=== PATIENT | female | born 1945 | race Caucasian/White ===

== ENCOUNTER → 2016-06-13 | Outpatient (CLI) | payer BC ==
[~2016-06-13] MED LIST: ALBUAER19 INH; ASPI-435 PO; LOVA20TA4 PO; METF-384 PO; MULT60CA PO; NITR0.4S UT; PLMIN90 IN; PRLSR20 PO; SYMIN160 INH
--- NOTE | 2016-06-13 07:35 | DIAGNOSTIC IMAGING REPORT ---
CHEST 2 VIEWS ROUTINE CLINICAL HISTORY: Shortness of breath. Moderate COPD. COMPARISON STUDY: Chest radiograph February 17, 2016. FINDINGS: Lung volumes are normal. No consolidation is identified. No pneumothorax or pleural effusion is identified. There is no evidence of pulmonary edema. Mild cardiomegaly is unchanged. IMPRESSION: 1. No acute cardiopulmonary findings. 2. Mild cardiomegaly. Electronically signed by: Jason Coronado M.D. 06/13/2016 7:33 AM
== END | disposition home or self-care (01) ==
LOC: C.RAD 06:46
PROVIDERS: ATTEND Internal Medicine
DX: J44.9 Chronic obstructive pulmonary disease, unspecified (principal)

== ENCOUNTER → 2016-07-06 | Outpatient (CLI) | payer BC ==
[~2016-07-06] MED LIST changes: -METF-384 PO
--- NOTE | 2016-07-06 17:13 | DIAGNOSTIC IMAGING REPORT ---
ULTRASOUND RIGHT UPPER EXTREMITY VENOUS CLINICAL HISTORY: Right arm pain. COMPARISON STUDY: No priors. TECHNIQUE: Real-time, grayscale, and color Doppler sonography of the deep veins of the right upper extremity is performed. Compression and augmentation were utilized. FINDINGS: There is no sonographic evidence of deep venous thrombosis identified in the right upper extremity. The right internal jugular, axillary, and brachial veins are patent and normally compressible. Normal venous waveforms and augmentation are seen within the right subclavian vein. The cephalic and basilic veins are clear. The visualized radial and ulnar veins are patent. IMPRESSION: There is no sonographic evidence of deep venous thrombosis identified in the right upper extremity. Electronically signed by: Cesar Stephen M.D. 07/06/2016 5:11 PM Dictated Date/Time: 07/06/2016 5:11 PM
== END | disposition home or self-care (01) ==
LOC: C.ULTR 16:25
PROVIDERS: ATTEND Internal Medicine
DX: M79.601 Pain in right arm (principal)

== ENCOUNTER → 2016-07-21 | Outpatient (CLI) | payer BC | END | disposition home or self-care (01) | LOC: C.LAB1850 12:26 | PROVIDERS: ATTEND Internal Medicine Pulmonary Disease | DX: J32.9 Chronic sinusitis, unspecified (principal); J44.9 Chronic obstructive pulmonary disease, unspecified; J30.89 Other allergic rhinitis; J30.1 Allergic rhinitis due to pollen ==

== ENCOUNTER → 2016-08-12 | Outpatient (CLI) | payer BC ==
[2016-08-12 12:21] LABS: BASO % 0.2 %; BASO ABS # 0.02 K/uL (0-0.2); COMPLETE YES; EOS % 1.5 %; HEMATOCRIT 49.7 % (37-47); IG% 0.3 %; LYMPH % 21.5 %; LYMPH ABS # 2.09 K/uL (1.2-3.4); MEAN CELL VOLUME 97.1 fL (80-100); MEAN CORPUSCULAR HEMOGLOBIN 31.8 pg (25-34); MEAN CORPUSCULAR HGB CONC 32.8 g/dl (32-36); MEAN PLATELET VOLUME 11.3 fL (7.4-10.4); NEUT % 70.5 %; PLATELET COUNT 251 K/uL (130-400); RED BLOOD COUNT 5.12 M/uL (4.2-5.4); WHITE BLOOD COUNT 9.73 K/uL (4.8-10.8)
[2016-08-12 12:43] LABS: ALT/SGPT 19 U/L (12-78); AST/SGOT 12 U/L (15-37); BLOOD UREA NITROGEN 8 mg/dl (7-18); BUN/CREATININE RATIO 10.6 (10-20); CALCIUM 9.2 mg/dl (8.5-10.1); CARBON DIOXIDE 27 mmol/L (21-32); CHLORIDE 107 mmol/L (98-107); CREATININE 0.73 mg/dl (0.60-1.20); GLUCOSE 162 mg/dl (70-99); POTASSIUM 4.2 mmol/L (3.5-5.1); SODIUM 145 mmol/L (136-145)
[2016-08-12 12:53] LABS: ALB/GLOB RATIO 0.8 (0.9-2); ALKALINE PHOSPHATASE 133 U/L (45-117); CHOLESTEROL 171 mg/dl (0-200); CHOLESTEROL/HDL RATIO 3.4; HDL CHOLESTEROL 51 mg/dl; LDL CHOLESTEROL CALCULATED 92 mg/dl; TRIGLYCERIDES 142 mg/dl (0-150); VERY LOW DENSITY LIPOPROT CALC 28 mg/dl
[2016-08-12 13:28] LABS: ESTIMATED AVERAGE GLUCOSE 203 mg/dl; HA1C FLAG Normal (Normal)
== END | disposition home or self-care (01) ==
LOC: C.LABBFT 10:23
PROVIDERS: ATTEND Internal Medicine
DX: E11.42 Type 2 diabetes mellitus with diabetic polyneuropathy (principal)

== ENCOUNTER → 2016-08-26 | Outpatient (CLI) | payer BC ==
[~2016-08-26] MED LIST changes: -MULT60CA PO; -PLMIN90 IN
--- NOTE | 2016-08-26 13:42 | DIAGNOSTIC IMAGING REPORT ---
LEFT LOWER EXTREMITY VENOUS DOPPLER HISTORY: M79.89 Left leg swelling left [id number] COMPARISON STUDY: Venous Doppler 10/09/2015. FINDINGS: There is normal compressibility, flow, and augmentation within the left lower extremity deep venous system. IMPRESSION: No DVT within the left lower extremity. Electronically signed by: Rony Salgado M.D. 08/26/2016 1:41 PM Dictated Date/Time: 08/26/2016 1:39 PM
--- NOTE | 2016-08-31 07:50 | CODING QUERY MEDICAL NECESSITY ---
SUPPORTING DIAGNOSIS NEEDED Dr. Koroma, A supporting diagnosis is required for the test/procedure performed on this patient in order for us to be reimbursed by the patient's insurance. Please provide a supporting diagnosis for the following test/procedure listed below next to the test name along with your signature. *If there is no additional diagnosis for this patient that would support the following test/procedure please document that below next to the test/procedure. Test(s)/Procedure(s) that require a supporting diagnosis: * ([id number]) VENOUS DOPPLER LOWER EXT UNILA DIAGNOSIS: DATE OF SERVICE: 08/26/16 Provider Signature: Date: Thank you Abdifatah [facility] Information Management Once completed, please kindly fax back to [phone] For questions please call [phone]
== END | disposition home or self-care (01) ==
LOC: C.ULTRBC 12:41
PROVIDERS: ATTEND Internal Medicine
DX: M79.89 Other specified soft tissue disorders (principal); R60.9 Edema, unspecified

== ENCOUNTER → 2016-09-07 | Outpatient (CLI) | payer BC ==
[~2016-09-07] MED LIST changes: +METF-384 PO
--- NOTE | 2016-09-08 06:44 | SPLIT NIGHT TECHNICIAN REPORT ---
[facility] Split Night Polysomnogram - Gear Changer Report Study date: 09/07/2016 Referring Physician: DR. PEOPLES Name: TEODORO MACEDO Gear Changer: [facility] Date of : 1945 Height: 71 years, Height 5' 3" Sex: Female Weight: 232 lbs Age: 71 Neck Circum: 17 in BMI: Medications: 41.09 ALBUTEROL SULFATE, CALRITHROMYCIN 500 MG, EQ ASPISIN LOW DOSE 81 MG, FORACARE TEST N GO STRIP, LOVASTATIN 20 MG, NITROSTAT 0.4 MG, PREDNISONE 10 MG, SYMBICORT 160-4.5 MCG/ACT, VENTOLIN HFA, VIT C Patient History 71 yr-old female here for a baseline.split study. She has a history of COPD, shortness of breath upon exertion, excessive daytime sleepiness, and frequent awakenings. She is sleeping in the upright position. Her [place] scale is 5. CPAP will be introduced with AHI exceeds 15 (per doctor's H&P) The test was started on room air. ETCO2 testing is included in this study. Room 6 Parameters Monitored NPSG: E1-M2, E2-M1, Fp1-M2, Fp2-M1, F3-M2, F4-M2, F4-M1, C3-M2, C4-M2, C4-M1, O1-M2, O2-M2, O2-M1, T3-M2, T4-M1, P3-M2, P4-M1, CHIN1, CHIN2, HR, EKG, Legs, PFLOW, SNOR, FLOW, CFLOW, Tidal Volume, THOR, ABDO, SpO2, PLTH, CPRESS, ETCO2 Wave, ETCO2, pH SLEEP SUMMARY DATA DIAGNOSTIC TREATMENT Lights Out: 10:43:59 PM 1:41:29 AM Lights On: 1:25:59 AM 6:02:29 AM Total Recording Time (TRT): 162.0 min. 261.0 min. Total Sleep Time (TST): 123.5 min. 183.5 min. NREM Time: 97.5 min. 151.5 min. REM Time: 26.0 min. 32.0 min. Sleep Period Time (SPT): 150.0 min. 214.0 min. Sleep Efficiency (SE): 76 % 70 % Sleep Latency: 11.5 min. 47.0 min. Arousal Index: 56.4 25.2 PAP Treatment Levels: 4, 6, 7, 8, 10, 11, 13 * Optimal Pressure(s) SLEEP STAGING DATA DIAGNOSTIC TREATMENT Duration (min) TST % Duration (min) TST % Stage Wake: 38.5 min. -- 77.5 min. -- WASO: 27.0 min. -- 30.5 min. -- NREM: 97.5 min. 79 % 151.5 min. 83 % Stage N1: 32.5 min. 26 % 16.0 min. 9 % Stage N2: 65.0 min. 53 % 122.5 min. 67 % Stage N3: 0.0 min. 0 % 13.0 min. 7 % REM: 26.0 min. 21 % 32.0 min. 17 % POSITIONAL DATA Event Count Index Event Count Index Supine: N/A N/A N/A N/A Supine NREM: N/A N/A N/A N/A Supine REM: N/A N/A N/A N/A Non-Supine: 53 25.3 49 14.7 Non-Supine NREM: 42 25.8 47 17.4 Non-Supine REM: 11 23.1 2 1.9 AROUSAL SUMMARY DATA: Event Count Index Event Count Index Apnea Arousals: 0 0.5 2 0.7 Hypopnea Arousals: 22 10.7 18 5.9 Snore Arousals: 0 0.0 3 1.0 PLM Arousals: 88 42.8 23 7.5 Non-Specific Arousals: 5 2.4 26 8.5 Total Arousals: 116 56.4 77 25.2 MYOCLONUS (PLM) Event Count Index Event Count Index PLM: 312 151.6 200 65.4 PLM AROUSAL: 88 42.8 23 7.5 PLM W/O AROUSAL 312 151.6 177 57.9 PLM W/RESP EVENT 32 0.0 4 0.0 MYOCLONUS (PLM) Event Count Index Event Count Index LM: 0 6.3 59 19.3 LM AROUSAL: 0 0.0 3 1.0 LM W/O AROUSAL LM W/RESP EVENT LM NON SPECIFIC 204 99.1 215 70.3 HEART RATE DATA DIAGNOSTIC TREATMENT Sleep (bpm): 74 66 REM (bpm): 78 81 NREM (bpm): 87 87 Tachycardia Count: 0 0 Tachycardia Duration: 0.00 0 Bradycardia Count: 0 0 Bradycardia Duration: 0.00 0 DIAGNOSTIC PORTION TREATMENT PORTION RESPIRATORY DATA Event Count Index Event Count Index AHI: -- 25.3 -- 14.7 RDI: -- 25.7 -- 16 Obstructive Apnea: 1 0.5 2 0.7 Central Apnea: 0 0.0 0 0.0 Mixed Apnea: 0 0.0 0 0.0 Hypopnea: 51 24.8 43 14.1 RERA: 1 0.5 4 1.3 Total Apneas: 1 0.5 2 0.7 RESPIRATORY DATA REM NREM SLEEP REM NREM SLEEP Supine Position: Obstructive Apneas: N/A N/A N/A N/A N/A N/A Central Apneas: N/A N/A N/A N/A N/A N/A Mixed Apneas: N/A N/A N/A N/A N/A N/A Hypopneas: N/A N/A N/A N/A N/A N/A RERA N/A N/A N/A N/A N/A N/A Total Supine Events: N/A N/A N/A N/A N/A N/A Supine AHI: N/A N/A N/A N/A N/A N/A Supine RDI: N/A N/A N/A N/A N/A N/A REM NREM SLEEP REM NREM SLEEP Non-Supine Position: Obstructive Apneas: 1 0 1 0 2 2 Central Apneas: 0 0 0 0 0 0 Mixed Apneas: 0 0 0 0 0 0 Hypopneas: 9 42 51 1 42 43 RERA 1 0 1 1 3 4 Total Supine Events: 11 42 53 2 47 49 Supine AHI: 23.1 25.8 25.3 1.9 17.4 14.7 Supine RDI: 25.4 25.8 25.7 3.8 18.6 16.0 OXYGEN DESTAURATION DATA: Event Count Index Event Count Index REM Desaturations: 11 25.4 2 3.8 NREM Desaturations: 55 33.8 54 21.4 SNORE DATA DIAGNOSTIC TREATMENT Snore Time: 1.0 2:28:29 AM Snore TST%: 0 2 Snore Arousal Count: 0 3 Snore Arousal Index: 0.0 1.0 Desaturation Event Summary: Minimum %SpO2 Event Count Mean/Min/Max Duration(sec.) Desaturation Index % Time In Bed > 90 56 33.6 / 11.3 / 60.0 75.6 10.7 86 - 90 105 33.9 / 11.3 / 60.0 27.4 55.3 81 - 85 18 30.0 / 16.8 / 48.3 9.9 26.2 76 - 80 6 28.7 / 16.8 / 39.3 17.7 4.9 71 - 75 1 31.3 / 31.3 / 31.3 5.5 2.6 66 - 70 0 N/A 0.0 0.3 61 - 65 0 N/A 0.0 0.0 56 - 60 0 N/A 0.0 0.0 51 - 55 0 N/A 0.0 0.0 < 50 0 N/A 0.0 0.0 OXYGEN SATURATION DATA DIAGNOSTIC TREATMENT SpO2 Mean Sleep: 85 % 86 % SpO2 Mean REM: 78 % 81 % SpO2 Mean NREM: 87 % 87 % SpO2 Minimum Sleep: 69 % 74 % SpO2 Minimum REM: 69 % 74 % SpO2 Minimum NREM: 78 % 79 % Time Below 90% (TST): 108.6 157.4 Time Below 88% (TST): 82.7 126.2 Total REM NREM Awake <50% 0.0 min. 0.0 min. 0.0 min. 0.0 min. 51 - 60% 0.0 min. 0.0 min. 0.0 min. 0.0 min. 61 - 70% 1.4 min. 1.0 min. 0.0 min. 0.3 min. 71 - 80% 31.2 min. 29.9 min. 0.7 min. 0.6 min. 81 - 90% 339.3 min. 26.1 min. 224.3 min. 88.9 min. 91 - 100% 44.5 min. 0.9 min. 24.0 min. 19.5 min. Average 86 80 87 89 Minimum SpO2 69 69 78 70 Desaturation Event Index 18.6 13.4 26.3 6.7 # Desat. Events below 89% 127 13 105 9 Time(%) with Saturation below 89% 71.8 13.4 44.9 13.5 Time(min.) with Saturation below 89% 299.0 55.9 186.9 56.3 Recording Gear Changer Comments: Ms. Macedo slept only in the supine position with the head of the bed raised to a near sitting position. No cardiac arrhythmias were noted. PLMs and many arousals from leg movements were noted throughout the study. No bruxism noted. Snoring was noted and scored as a 2-3 on a scale of 1 through 5. (0=no snoring, 5=snoring loud enough to be heard through a closed door or down the [address]) At 1:40, she met specific Split-Night criteria during the diagnostic portion of this study. CPAP was initiated at +4 CMH2O and up-titrated to a level of +13 CMH2O Cflex 3. A Simplus full face mask size medium from [employer] was used during titration She awoke to use the restroom two times during the night. Ms. Macedo stated that she thinks she slept ok. The final report will be interpreted and signed by a sleep physician. The completed physician report will then be placed in the patient medical record. Therapy Event: Therapy (cm H20) 0 4 6 7 8 10 11 13 Total Time at Pressure (min.) 162.0 67.9 67.1 29.0 41.5 15.4 17.5 22.7 TST at Pressure (min.) 123.5 16.9 66.6 28.0 19.0 15.4 15.5 22.2 # Periods 1 1 1 1 1 1 1 1 Sleep Onset (min.) 11.5 47.0 0.0 0.0 0.0 0.0 0.0 0.0 REM Onset (min.) 120.0 N/A 48.6 0.0 N/A N/A N/A N/A Sleep Efficiency % 76 24 99 96 45 100 88 97 Wakefulness (%) 23.8 75.1 0.7 3.4 54.2 0.0 11.5 2.2 Wakefulness (min.) 38.5 51.0 0.5 1.0 22.5 0.0 2.0 0.5 NREM 1 (%) 20.1 6.6 0.7 10.3 6.0 3.2 21.8 5.3 NREM 1 (min.) 32.5 4.5 0.5 3.0 2.5 0.5 3.8 1.2 NREM 2 (%) 40.1 18.2 53.9 36.0 39.7 96.8 66.8 90.3 NREM 2 (min.) 65.0 12.4 36.1 10.4 16.5 14.9 11.7 20.5 NREM 3 (%) 0.0 0.0 18.6 0.0 0.0 0.0 0.0 2.2 NREM 3 (min.) 0.0 0.0 12.5 0.0 0.0 0.0 0.0 0.5 REM (%) 16.0 0.0 26.0 50.2 0.0 0.0 0.0 0.0 REM (min.) 26.0 0.0 17.4 14.6 0.0 0.0 0.0 0.0 # Arousals 116 23 10 8 8 6 15 7 Arousal Index 56.4 81.8 9.0 17.1 25.3 23.3 58.2 18.9 # Snore 42 8 21 10 31 3 7 8 Snore Index 20.4 28.5 18.9 21.4 98.0 11.7 27.2 21.6 AHI 25.3 14.2 3.6 8.6 25.3 23.3 42.7 21.6 AHI Supine N/A N/A N/A N/A N/A N/A N/A N/A AHI Non-Supine 25.3 14.2 3.6 8.6 25.3 23.3 42.7 21.6 NREM AHI 25.8 14.2 3.7 17.9 25.3 23.3 42.7 21.6 REM AHI 23.1 N/A 3.4 0.0 N/A N/A N/A N/A RDI 25.7 17.8 4.5 12.9 25.3 23.3 42.7 21.6 # Obstructive 1 0 0 0 0 0 0 2 # Central Ap 0 0 0 0 0 0 0 0 # Mixed 0 0 0 0 0 0 0 0 # Hypopneas 51 4 4 4 8 6 11 6 RERAS 1 1 1 2 0 0 0 0 Total Respiratory Events 53 5 5 6 8 6 11 8 Time Below SpO2 89.00% (min.) 98.7 13.9 62.7 24.2 14.6 9.2 7.0 12.3 Mean NREM SpO2 (%) 87 87 85 87 88 88 88 89 Mean REM SpO2 (%) 78 N/A 81 81 N/A N/A N/A N/A Mean Sleep SpO2 (%) 85 87 84 84 88 88 88 89 Min NREM SpO2 (%) 78 83 81 84 83 83 79 82 Min REM SpO2 (%) 69 N/A 74 74 N/A N/A N/A N/A Position Supine (min.) 0.0 0.0 0.0 0.0 0.0 0.0 0.0 0.0 Position Non-supine (min.) 123.5 16.9 66.6 28.0 19.0 15.4 15.5 22.2 LM Index Sleep 157.9 96.0 123.5 109.3 25.3 46.7 62.1 21.6 LM Index NREM 174.2 96.0 142.9 156.3 25.3 46.7 62.1 21.6 LM Index REM 96.9 N/A 68.8 65.9 N/A N/A N/A N/A Mean Heart Rate (bpm) 74 69 67 68 66 64 64 62 Min Heart Rate (bpm) 62 65 61 61 59 58 57 55
--- NOTE | 2016-09-08 12:41 | POLYSOMNOGRAPH REPORT ---
CLINICAL DATA: A 71-year-old female with BMI of 41.[address] Masters and Dr. Koroma for a split night sleep study. She has COPD, shortness of breath on exertion, excessive daytime sleepiness, and frequent awakenings. She does sleep in the upright position. This was a split night study. Her [place] Sleepiness Score was 5/24. SLEEP ARCHITECTURE: For the diagnostic portion of the study, total sleep period was 150 minutes. Total sleep time was 123.5 minutes divided between 97.5 minutes of non-REM sleep and 26 minutes of REM sleep. Sleep latency was 11.5 minutes. Sleep efficiency was 76%. Arousal index was 56.4. Sleep consisted of stage N1 26%, N2 53%, REM 21%. For the treatment portion of the study, total sleep period was 214 minutes. Total sleep time was 183.5 minutes divided between 151.5 minutes of non-REM sleep and 32 minutes of REM sleep. Sleep latency was delayed at 47 minutes. Sleep efficiency was 70%. Arousal index was 25.2. Sleep consisted of stage N1 9%, N2 67%, N3 7%, REM 17%. AROUSAL DATA: Prior to treatment, 116 arousals were recorded for an index of 56.4 per hour. During treatment, 77 arousals were recorded for an index of 25.2 per hour. PLM DATA: Prior to treatment, 204 limb movements during sleep were noted for an index of 99.1 per hour. During treatment, 215 limb movements during sleep were noted for an index of 70.3 per hour. EKG: Heart rates ranged from 66-87 beats per minute. No arrhythmias were noted. RESPIRATORY DATA: Prior to treatment, moderate sleep apnea was documented. The AHI was 25.3. There was 1 obstructive apneic episode and 51 hypopneic episodes recorded. The mean AHI with treatment was 14.7. There were 2 obstructive apneic episodes and 43 hypopneic episodes. OXIMETRY DATA: Nocturnal hypoxemia was seen. Oxygen manas was 69% during REM. The mean saturation with treatment was 86%. CLINICAL HAEMATOLOGIST'S COMMENTS AND TREATMENT SUMMARY: The patient slept supine with head of the bed raised to a near sitting position. Frequent leg movements with arousals were noted. Snoring was moderate, rated 3 on a scale of 1 through 5. At 1:40 a.m. she met split night criteria. CPAP was started and titrated up to 13 cm of water pressure using [employer] Simplus full facemask size medium. At her final pressure setting, the patient still had significant sleep apnea with an AHI of 21.6 with persistent nocturnal hypoxemia. IMPRESSION: Moderate sleep apnea/hypopnea with significant nocturnal hypoxemia with diagnostic AHI of 25.3 and oxygen manas of 69%. There was an attempt to titrate the patient with CPAP. However, there was not enough time to complete an entire CPAP/oxygen titration. RECOMMENDATIONS: The patient should be returned to the sleep lab for a full in lap titration study with CPAP/BiPAP and oxygen. MTDD
--- NOTE | 2016-09-15 06:31 | CODING QUERY MEDICAL NECESSITY ---
SUPPORTING DIAGNOSIS NEEDED A supporting diagnosis is required for the test/procedure performed on this patient in order for us to be reimbursed by the patient's insurance. Please provide a supporting diagnosis for the following test/procedure listed below next to the test name along with your signature. *If there is no additional diagnosis for this patient that would support the following test/procedure please document that below next to the test/procedure. Test(s)/Procedure(s) that require a supporting diagnosis: * SLEEP STUDY WITH C PAP DIAGNOSIS: * DOS: 09/07/16 Provider Signature: Date: Thank you Adriana Leslie Health Information Management Once completed, please kindly fax back to [phone] For questions please call [phone]
== END | disposition home or self-care (01) ==
LOC: C.NEUR 21:00
PROVIDERS: ATTEND Internal Medicine Pulmonary Disease
DX: J44.9 Chronic obstructive pulmonary disease, unspecified (principal); J45.909 Unspecified asthma, uncomplicated

== ENCOUNTER → 2016-10-07 | Outpatient (CLI) | payer BC ==
[2016-10-07 12:24] LABS: BLOOD UREA NITROGEN 12 mg/dl (7-18); BUN/CREATININE RATIO 15.7 (10-20); CALCIUM 9.6 mg/dl (8.5-10.1); CARBON DIOXIDE 31 mmol/L (21-32); CHLORIDE 104 mmol/L (98-107); CREATININE 0.75 mg/dl (0.60-1.20); GLUCOSE 171 mg/dl (70-99); POTASSIUM 4.3 mmol/L (3.5-5.1); SODIUM 142 mmol/L (136-145)
== END | disposition home or self-care (01) ==
LOC: C.LABBFT 07:50
PROVIDERS: ATTEND Physician Assistant Medical
DX: R60.9 Edema, unspecified (principal)

== ENCOUNTER → 2016-10-15 | Outpatient (CLI) | payer BC ==
--- NOTE | 2016-10-16 06:27 | PAP/PSG TECHNICIAN REPORT ---
[facility] Cake Knocker Polysomnogram Report Study name: None Report date: 10/16/2016 Study date: 10/15/2016 Referring Physician: Dee Diaz PA-C Name: TEODORO MACEDO Interpreting Physician: Javy Merritt M.D. Date of : 1945 Cake Knocker: Jamar Sung RPSGT. Sex: Female Age: 71 StudyType: PSG PAP Weight: 237 lbs 18.5 inches Height: 71 years, Height 5' 3" Neck Circum: BMI: 41.98 Medications: ALBUTEROL SULFATE, CLOTRIMAZOLE-BETAMETHASONE, EQ ASPIRIN LOW DOSE 81 MG, LOVASTATIN 20 MG, METFORMIN HCL 500 MG, NITROSTAT 0.4 MG, SYMBICORT 160-4.5 MCG/ACT, VENTOLIN HFA 108 (90) BASE Patient History PATIENT HAD A SLEEP STUDY DONE IN AUGUST OF 2016. SHE WAS POSITIVE FOR LISSETTE WITH AN AHI OF 25.3/HR. A SPLIT STUDY WAS PERFORMED BUT WAS UNABLE TO FIND AN OPTIMAL PRESSURE. SHE IS HERE TODAY FOR A REPEAT CPAP TITRATION. ESS = 5 RM 8 Parameters Monitored NPSG: E1-M2, E2-M1, Fp1-M2, Fp2-M1, F3-M2, F4-M2, F4-M1, C3-M2, C4-M2, C4-M1, O1-M2, O2-M2, O2-M1, T3-M2, T4-M1, P3-M2, P4-M1, CHIN1, CHIN2, HR, EKG, Legs, PFLOW, SNOR, FLOW, CFLOW, Tidal Volume, THOR, ABDO, SpO2, PLTH, CPRESS, ETCO2 Wave, ETCO2, pH Sleep Architecture Sleep Stages Time at Lights Off 10:48:21 PM STAGES Time (min.) TST (%) Time at Lights On 6:01:51 AM Wake 161.0 -- Total Recording Time (TRT) 434.00 min. N1 48.0 18 Total Sleep Period (TSP) 416.0 min. N2 144.0 53 Total Sleep Time (TST) 272.5min. N3 41.5 15 Awake Time 161.5 min. REM 39.0 14 Wake after Sleep Onset 144.0 min. Sleep Efficiency (SE) 63 % Sleep Onset Latency (ANGELITO) 17.0 min. Number of Stage 1 Shifts None Awakenings 49 Stage Changes 155 Number of REM periods 4 REM 39.0 14 REM Latency 174.5 min. NREM 233.5 86 Body Position Analysis Supine Right Left Side Prone Vertical Total Sleep Time (min.) 433.5 0.0 0.0 0.00 0.0 0.0 Total Sleep Time (%) 100% 0% 0% 0 0% N/A% Total Sleep Time REM (min.) 39.0 0.0 0.0 None 0.0 0.0 Total Sleep Time NREM (min.) 233.5 0.0 0.0 None 0.0 0.0 Intermittent Wake (min.) 161.0 0.0 0.0 None 0.0 0.0 Total Sleep Period (%) 100% None None None None None Arousals Myoclonus (PLM) * Events Count Index Events Count Index Spontaneous 65 14 Events Awake (PLMW) 112 41.7 Respiratory 86 19.4 Events Asleep w/ Arousal (PLMA) 28 6.2 PLM 28 6 Events Asleep w/o Arousal (PLMS) 145 31.9 Snoring 0 0 Total Asleep 173 38.1 Total 179 39 Total 285 39 Respiratory Analysis * CA OA MA CH H RERA Total Count 17 7 4 0 84 23 112 Index 3.7 1.5 0.9 0 18.5 5 29.5 Mean Duration 20.5 32.3 25.1 0.00 21.2 13.8 20.6 Longest Duration 33.0 71.7 30.4 0.00 30.4 20.3 71.7 Respiratory Event Summary Total Supine ~Supine Right Left Prone REM NREM Apneas Count 28 28 N/A N/A N/A N/A 2 26 Index 6.2 6 N/A N/A N/A N/A 3 7 Hypopneas (4% Desat) Count 84 84 N/A N/A N/A N/A 8 76 Index 18.5 18.5 N/A N/A N/A N/A 12.3 19.5 Apneas & All Hypopneas Count 112 112 N/A N/A N/A N/A 10 102 Index 24.7 25 N/A N/A N/A N/A 15.4 26.2 Respiratory Events ([employer]+All Hyp+RERA) Count 112 134 N/A N/A N/A N/A 10 102 Index 29.5 30 N/A N/A N/A N/A 16.9 31.6 Respiratory Related Arousal Count 86 134 N/A N/A N/A N/A 2 86 Index 19.4 19 N/A N/A N/A N/A 3 22 Snoring Analysis Supine Right Left Prone REM NREM Total Snore duration 0.4 min Snores count 12 N/A N/A N/A 5 7 12 Snore mean duration 1.8 Sec Snores index 3 N/A N/A N/A 7.7 1.8 2.6 TST with snoring (%) 0.1% Desaturation Event Summary: Minimum %SpO2 Event Count Mean/Min/Max Duration(sec.) Desaturation Index % Time In Bed > 90 109 33.5 / 11.0 / 93.6 20.4 75.4 86 - 90 21 33.5 / 13.0 / 101.0 13.9 21.3 81 - 85 1 76.1 / 76.1 / 76.1 6.4 2.2 76 - 80 0 N/A 0.0 0.8 71 - 75 0 N/A 0.0 0.1 66 - 70 0 N/A 0.0 0.1 61 - 65 0 N/A 0.0 0.0 56 - 60 0 N/A 0.0 0.0 51 - 55 0 N/A 0.0 0.0 < 50 0 N/A 0.0 0.0 Total REM NREM Awake <50% 0.0 min. 0.0 min. 0.0 min. 0.0 min. 51 - 60% 0.0 min. 0.0 min. 0.0 min. 0.0 min. 61 - 70% 0.5 min. 0.5 min. 0.0 min. 0.0 min. 71 - 80% 4.0 min. 3.7 min. 0.0 min. 0.3 min. 81 - 90% 99.9 min. 7.8 min. 61.9 min. 30.2 min. 91 - 100% 320.9 min. 27.0 min. 171.6 min. 122.3 min. Average 92 90 91 92 Minimum SpO2 64 64 81 78 Desaturation Event Index 15.8 12.3 24.4 4.5 # Desat. Events below 89% 87 6 73 8 Time(%) with Saturation below 89% 9.6 2.5 4.7 2.4 Time(min.) with Saturation below 89% 41.0 10.7 20.2 10.1 Time (mins) REM (mins) NREM (mins) % of TST SpO2 Below 90% 100 6 N94 17.5 SpO2 Below 88% 44 0 0 8 Heart Rate Analysis Min (bpm) Max (bpm) Average (bpm) Awake 60 92 77 NREM 60 90 74 REM 60 91 74 Overall 60 91 74 Supplemental O2 Values Minimum O2 level: None Value Start Time End Time Cake Knocker Comments Ms. Macedo slept in the supine position. PAC's noted. Leg movements noted. No bruxism noted. CPAP was initiated at +4 CMH2O and up-titrated to a level of +20 CMH2O. Severe Respiratory events were noted during REM sleep while at a pressure of 20. I switched to BIPAP because I could no longer increase the pressure on CPAP. I started BIPAP at 24/20. I increased BIPAP to 25/20 and shortly after I switched to BIPAP the patient needed to use the restroom. After the patient used the restroom, she had difficulty getting back to sleep, so I lowered the BIPAP to 21/17. She continued to have central and mixed apneas, so I started at rate of 12 around 4:04 am. The patient continued to have central apneas and other respiratory events. I increased the rate up to 16 and gradually increased the BIPAP to 30/23. With the BIPAP maxed out, she continued to have hypopneas during REM sleep. The patient did seem to tolerate the pressure well considering how high it was. She did mention that she had pain in her legs and could have contributed to why she couldn't fall asleep as much. A Resmed Mirage Quattro full face size medium mask was used during titration Ms. Macedo awoke to use the restroom 1 time during the night. Ms. Macedo stated I did not sleep as well as I do when I am in my own bed. The final report will be interpreted and signed by a sleep physician. The completed physician report will then be placed in the patient medical record. Therapy Event: Therapy (cm H20) 4 6 7 8 9 10 11 12 13 Total Time at Pressure (min.) 24.0 6.2 6.1 5.8 8.8 6.8 5.5 22.5 10.5 TST at Pressure (min.) 3.0 6.2 6.1 5.3 6.8 4.3 5.5 11.5 5.5 # Periods 1 1 1 1 1 1 1 1 1 Sleep Onset (min.) 17.0 0.0 0.0 0.0 0.0 0.0 0.0 0.0 0.0 REM Onset (min.) N/A N/A N/A N/A N/A N/A N/A N/A N/A Sleep Efficiency % 12 100 100 91 77 63 100 51 52 Wakefulness (%) 87.5 0.0 0.0 8.7 22.8 36.7 0.0 48.8 47.8 Wakefulness (min.) 21.0 0.0 0.0 0.5 2.0 2.5 0.0 11.0 5.0 NREM 1 (%) 12.5 64.6 57.2 1.4 48.6 31.7 9.0 18.8 7.3 NREM 1 (min.) 3.0 4.0 3.5 0.1 4.3 2.2 0.5 4.2 0.8 NREM 2 (%) 0.0 35.4 42.8 90.0 28.5 31.6 91.0 32.4 44.9 NREM 2 (min.) 0.0 2.2 2.6 5.2 2.5 2.2 5.0 7.3 4.7 NREM 3 (%) 0.0 0.0 0.0 0.0 0.0 0.0 0.0 0.0 0.0 NREM 3 (min.) 0.0 0.0 0.0 0.0 0.0 0.0 0.0 0.0 0.0 REM (%) 0.0 0.0 0.0 0.0 0.0 0.0 0.0 0.0 0.0 REM (min.) 0.0 0.0 0.0 0.0 0.0 0.0 0.0 0.0 0.0 # Arousals 2 9 11 9 11 6 6 10 8 Arousal Index 40.0 87.3 107.9 102.3 97.6 83.5 64.9 52.0 87.8 # Snore 0 0 0 0 0 1 0 0 0 Snore Index 0.0 0.0 0.0 0.0 0.0 13.9 0.0 0.0 0.0 AHI 20.0 58.2 49.1 68.2 53.3 97.4 54.1 31.2 43.9 AHI Supine 20.0 58.2 49.1 68.2 53.3 97.4 54.1 31.2 43.9 AHI Non-Supine N/A N/A N/A N/A N/A N/A N/A N/A N/A NREM AHI 20.0 58.2 49.1 68.2 53.3 97.4 54.1 31.2 43.9 REM AHI N/A N/A N/A N/A N/A N/A N/A N/A N/A RDI 40.0 67.9 68.7 68.2 62.1 97.4 54.1 31.2 54.9 # Obstructive 0 0 0 0 0 0 0 0 0 # Central Ap 0 0 0 0 0 0 0 0 0 # Mixed 0 0 0 0 0 0 0 0 0 # Hypopneas 1 6 5 6 6 7 5 6 4 RERAS 1 1 2 0 1 0 0 0 1 Total Respiratory Events 2 7 7 6 7 7 5 6 5 Time Below SpO2 89.00% (min.) 1.8 1.6 1.1 1.0 1.1 0.3 1.9 3.8 0.3 Mean NREM SpO2 (%) 88 90 90 90 90 91 90 90 91 Mean REM SpO2 (%) N/A N/A N/A N/A N/A N/A N/A N/A N/A Mean Sleep SpO2 (%) 88 90 90 90 90 91 90 90 91 Min NREM SpO2 (%) 85 86 86 85 85 84 84 85 87 Min REM SpO2 (%) N/A N/A N/A N/A N/A N/A N/A N/A N/A Position Supine (min.) 3.0 6.2 6.1 5.3 6.8 4.3 5.5 11.5 5.5 Position Non-supine (min.) 0.0 0.0 0.0 0.0 0.0 0.0 0.0 0.0 0.0 LM Index Sleep 20.0 0.0 58.9 22.7 124.3 69.6 86.6 46.8 54.9 LM Index NREM 20.0 0.0 58.9 22.7 124.3 69.6 86.6 46.8 54.9 LM Index REM N/A N/A N/A N/A N/A N/A N/A N/A N/A Mean Heart Rate (bpm) 79 79 78 78 78 76 76 76 75 Min Heart Rate (bpm) 75 75 73 72 71 71 70 71 72 Therapy (cm H20) 14 15 16 17 18 19 20 21/17 22/18 Total Time at Pressure (min.) 5.3 5.7 5.5 36.7 6.1 13.1 29.7 8.0 2.9 TST at Pressure (min.) 4.3 3.7 5.5 17.7 6.1 13.1 29.2 6.4 2.4 # Periods 1 1 1 1 1 1 1 1 1 Sleep Onset (min.) 0.0 0.0 0.0 0.0 0.0 0.0 0.0 1.1 0.0 REM Onset (min.) N/A N/A N/A N/A N/A N/A 22.9 N/A N/A Sleep Efficiency % 81 64 100 48 100 100 98 79 83 Wakefulness (%) 18.7 35.2 0.0 51.7 0.0 0.0 1.7 20.4 17.0 Wakefulness (min.) 1.0 2.0 0.0 19.0 0.0 0.0 0.5 1.6 0.5 NREM 1 (%) 0.0 12.5 5.3 10.9 0.0 0.0 1.7 36.0 31.9 NREM 1 (min.) 0.0 0.7 0.3 4.0 0.0 0.0 0.5 2.9 0.9 NREM 2 (%) 81.3 52.2 94.7 37.4 100.0 100.0 46.8 43.6 51.0 NREM 2 (min.) 4.3 3.0 5.2 13.7 6.1 13.1 13.9 3.5 1.5 NREM 3 (%) 0.0 0.0 0.0 0.0 0.0 0.0 35.4 0.0 0.0 NREM 3 (min.) 0.0 0.0 0.0 0.0 0.0 0.0 10.5 0.0 0.0 REM (%) 0.0 0.0 0.0 0.0 0.0 0.0 14.5 0.0 0.0 REM (min.) 0.0 0.0 0.0 0.0 0.0 0.0 4.3 0.0 0.0 # Arousals 8 5 6 19 9 5 2 6 3 Arousal Index 110.6 81.6 65.7 64.2 88.2 23.0 4.1 56.4 73.8 # Snore 1 1 0 1 1 0 0 0 0 Snore Index 13.8 16.3 0.0 3.4 9.8 0.0 0.0 0.0 0.0 AHI 69.1 65.3 21.9 37.2 19.6 4.6 6.2 84.5 49.2 AHI Supine 69.1 65.3 21.9 37.2 19.6 4.6 6.2 84.5 49.2 AHI Non-Supine N/A N/A N/A N/A N/A N/A N/A N/A N/A NREM AHI 69.1 65.3 21.9 37.2 19.6 4.6 0.0 84.5 49.2 REM AHI N/A N/A N/A N/A N/A N/A 41.9 N/A N/A RDI 69.1 81.6 54.7 40.6 58.8 18.4 6.2 84.5 49.2 # Obstructive 0 0 0 1 0 0 1 1 1 # Central Ap 0 0 0 2 0 0 0 6 1 # Mixed 0 0 0 1 0 0 0 2 0 # Hypopneas 5 4 2 7 2 1 2 0 0 RERAS 0 1 3 1 5 3 0 0 0 Total Respiratory Events 5 5 5 12 6 4 3 9 2 Time Below SpO2 89.00% (min.) 0.6 0.7 0.6 0.4 0.0 0.0 2.3 1.3 0.5 Mean NREM SpO2 (%) 91 91 91 91 92 91 92 91 91 Mean REM SpO2 (%) N/A N/A N/A N/A N/A N/A 86 N/A N/A Mean Sleep SpO2 (%) 91 91 91 91 92 91 91 91 91 Min NREM SpO2 (%) 87 85 86 86 89 89 84 81 83 Min REM SpO2 (%) N/A N/A N/A N/A N/A N/A 64 N/A N/A Position Supine (min.) 4.3 3.7 5.5 17.7 6.1 13.1 29.2 6.4 2.4 Position Non-supine (min.) 0.0 0.0 0.0 0.0 0.0 0.0 0.0 0.0 0.0 LM Index Sleep 55.3 0.0 32.8 60.8 88.2 137.8 107.0 0.0 0.0 LM Index NREM 55.3 0.0 32.8 60.8 88.2 137.8 120.6 0.0 0.0 LM Index REM N/A N/A N/A N/A N/A N/A 27.9 N/A N/A Mean Heart Rate (bpm) 74 74 75 75 74 76 74 70 68 Min Heart Rate (bpm) 69 68 69 67 67 65 66 61 62 Therapy (cm H20) 24/20 25/20 25/21 27/22 28/22 30/22 30/23 Total Time at Pressure (min.) 9.4 103.4 20.0 5.2 53.4 3.6 29.3 TST at Pressure (min.) 9.4 24.5 12.0 5.2 52.4 3.6 22.8 # Periods 2 1 1 1 1 1 1 Sleep Onset (min.) 0.0 0.0 0.0 0.0 0.0 0.0 0.0 REM Onset (min.) 0.0 0.0 N/A N/A 51.9 0.0 0.0 Sleep Efficiency % 100 23 60 100 98 100 77 Wakefulness (%) 0.0 76.3 40.0 0.0 1.9 0.0 22.2 Wakefulness (min.) 0.0 78.9 8.0 0.0 1.0 0.0 6.5 NREM 1 (%) 1.9 11.1 15.0 0.0 0.0 0.0 5.1 NREM 1 (min.) 0.2 11.5 3.0 0.0 0.0 0.0 1.5 NREM 2 (%) 26.4 6.3 45.0 100.0 37.2 0.0 17.0 NREM 2 (min.) 2.5 6.5 9.0 5.2 19.9 0.0 5.0 NREM 3 (%) 0.0 0.0 0.0 0.0 58.0 0.0 0.0 NREM 3 (min.) 0.0 0.0 0.0 0.0 31.0 0.0 0.0 REM (%) 71.8 6.3 0.0 0.0 2.9 100.0 55.7 REM (min.) 6.7 6.5 0.0 0.0 1.6 3.6 16.3 # Arousals 3 18 11 2 10 0 0 Arousal Index 19.2 44.1 55.0 23.3 11.4 0.0 0.0 # Snore 4 1 1 0 1 0 0 Snore Index 25.6 2.5 5.0 0.0 1.1 0.0 0.0 AHI 25.6 17.2 40.0 34.9 1.1 16.7 7.9 AHI Supine 25.6 17.2 40.0 34.9 1.1 16.7 7.9 AHI Non-Supine N/A N/A N/A N/A N/A N/A N/A NREM AHI 45.4 20.0 40.0 34.9 0.0 N/A 9.2 REM AHI 17.9 9.2 N/A N/A 38.5 16.7 7.3 RDI 32.1 19.6 45.0 34.9 2.3 16.7 7.9 # Obstructive 1 1 1 0 0 0 0 # Central Ap 0 4 4 0 0 0 0 # Mixed 0 0 1 0 0 0 0 # Hypopneas 3 2 2 3 1 1 3 RERAS 1 1 1 0 1 0 0 Total Respiratory Events 5 8 9 3 2 1 3 Time Below SpO2 89.00% (min.) 2.6 1.3 1.8 0.1 1.7 1.5 2.5 Mean NREM SpO2 (%) 92 92 92 92 92 N/A 94 Mean REM SpO2 (%) 89 92 N/A N/A 85 89 92 Mean Sleep SpO2 (%) 90 92 92 92 92 89 92 Min NREM SpO2 (%) 87 86 83 88 87 N/A 90 Min REM SpO2 (%) 73 77 N/A N/A 80 80 76 Position Supine (min.) 9.4 24.5 12.0 5.2 52.4 3.6 22.8 Position Non-supine (min.) 0.0 0.0 0.0 0.0 0.0 0.0 0.0 LM Index Sleep 6.4 7.4 10.0 11.6 0.0 0.0 0.0 LM Index NREM 0.0 10.0 10.0 11.6 0.0 N/A 0.0 LM Index REM 8.9 0.0 N/A N/A 0.0 0.0 0.0 Mean Heart Rate (bpm) 73 75 74 71 72 74 73 Min Heart Rate (bpm) 62 61 63 63 62 63 60
--- NOTE | 2016-10-20 07:39 | POLYSOMNOGRAPH REPORT ---
CLINICAL DATA: 71-year-old female with BMI of 42 referred by Dee Diaz and Dr. Koroma for a CPAP titration study. She had a split night study performed in 08/2016 which showed moderate sleep apnea with an AHI of 25.3. An attempt was made to do a CPAP titration, but no optimal pressure could be found during the split night study. She was sent back for a repeat CPAP titration study. SLEEP ARCHITECTURE: Total sleep period was 416 minutes. Total sleep time was 272.5 minutes divided between 233.5 minutes of non-REM sleep and 39 minutes of REM sleep. Sleep onset latency was 17 minutes. REM latency was 174.5 minutes. Sleep efficiency was 63%. Wake after sleep onset was elevated at 144 minutes. Sleep consisted of stage N1 18%, N2 53%, N3 15%, REM 14%. AROUSAL DATA: 179 arousals were recorded for an index of 39 per hour. 65 were spontaneous. PLM DATA: Moderate PLMD was seen. There 173 limb movements during sleep noted for an index of 38.1 per hour with arousal index of 6.2 per hour. RESPIRATORY DATA: The AHI was 24.7. There were 17 central, 7 obstructive, and 4 mixed apneic episodes. The longest duration of apnea was 32.3 seconds. There were 84 hypopneic episodes. The longest duration of hypopnea was 30.4 seconds. OXIMETRY DATA: Nocturnal hypoxemia was seen. Oxygen manas was 64% during REM. The mean saturation was 92%. Time below 88% was 44 minutes. EKG: Heart rates ranged from 60-91 beats per minute. PACs were noted. KIT ASSEMBLER'S COMMENTS AND TREATMENT SUMMARY: The patient used a ResMed Mirage Quattro full face size medium mask. She was started on CPAP and was titrated up to 20 cm water pressure. At that level, she had an RDI of 6.2 and at 19 cm of water pressure she had an AHI was of 4.6. However, because of persistent respiratory events, she was switched to BIPAP initially and then eventually titrated up to /. At the final pressure setting, she had an AHI of 7.9 and slept for 22 minutes. Because of central apneic episodes, she had a backup rate initiated at 16 breaths per minute. Apparently she did tolerate the pressure during the titration study, although it is unlikely that she will tolerate a pressure this high sustained as an outpatient. IMPRESSION: Moderate to severe complex sleep apnea improved on BiPAP with a backup rate of 16. It is unlikely that the patient will be able to tolerate this level of pressure as an outpatient. RECOMMENDATIONS: The patient may benefit from a trial auto CPAP 5-20 cm of water pressure. She will be seen in the sleep clinic to review options for treatment. JO
== END | disposition home or self-care (01) ==
LOC: C.NEUR 21:00
PROVIDERS: ATTEND Physician Assistant Medical
DX: G47.30 Sleep apnea, unspecified (principal)

== ENCOUNTER → 2016-12-19 | Outpatient (CLI) | payer BC ==
[~2016-12-19] MED LIST changes: -METF-384 PO
--- NOTE | 2016-12-19 10:41 | DIAGNOSTIC IMAGING REPORT ---
CT OF THE CHEST WITHOUT IV CONTRAST CLINICAL HISTORY: Pulmonary nodules. COMPARISON STUDY: Chest CT June 27, 2016. CT DOSE: 642.14 mGycm TECHNIQUE: Axial images of the chest were obtained without IV contrast. Images were reviewed in the axial, sagittal, and coronal planes. IV contrast was not administered for this examination. FINDINGS: No enlarged axillary, mediastinal or hilar lymph nodes are present. Size of the heart is normal. This extensive coronary artery calcification. Central airways are patent. There is no consolidation to suggest pneumonia. A few calcified pulmonary nodules are noted. There is mild emphysema. A 9 mm right lower lobe subpleural nodule shown image 212 of 276 is unchanged since exam of June 27, 2016. A few additional smaller perifissural nodules within the right lung are also unchanged. An 8 mm groundglass nodule within the right upper lobe shown on image 147 is unchanged. There are no new nodules. Bony thorax and upper abdomen are unremarkable with exception of fatty infiltration. Several thyroid nodules are noted. IMPRESSION: No change in several pulmonary nodules since exam of June 27, 2016. These are likely benign but a follow-up chest CT in one year to ensure stability is recommended. Electronically signed by: Jason Coronado M.D. 12/19/2016 10:40 AM Dictated Date/Time: 12/19/2016 10:28 AM
== END | disposition home or self-care (01) ==
LOC: C.CTS 10:00
PROVIDERS: ATTEND Physician Assistant Medical
DX: R91.8 Other nonspecific abnormal finding of lung field (principal)

== ENCOUNTER → 2017-02-24 | Outpatient (CLI) | payer BC ==
[2017-02-24 12:28] LABS: BASO % 0.4 %; BASO ABS # 0.03 K/uL (0-0.2); COMPLETE YES; HEMATOCRIT 44.4 % (37-47); IG% 0.4 %; LYMPH % 25.9 %; LYMPH ABS # 1.93 K/uL (1.2-3.4); MEAN CELL VOLUME 99.8 fL (80-100); MEAN CORPUSCULAR HEMOGLOBIN 31.7 pg (25-34); MEAN CORPUSCULAR HGB CONC 31.8 g/dl (32-36); MONO % 7.4 %; NEUT % 60.9 %; PLATELET COUNT 283 K/uL (130-400); RED BLOOD COUNT 4.45 M/uL (4.2-5.4); WHITE BLOOD COUNT 7.46 K/uL (4.8-10.8)
[2017-02-24 12:58] LABS: ESTIMATED AVERAGE GLUCOSE 151 mg/dl; HA1C FLAG Normal (Normal)
[2017-02-24 13:12] LABS: RATIO 27.9 mcg/mg (0-30.0)
[2017-02-24 13:23] LABS: BLOOD UREA NITROGEN 16 mg/dl (7-18); BUN/CREATININE RATIO 19.4 (10-20); CALCIUM 9.1 mg/dl (8.5-10.1); CARBON DIOXIDE 28 mmol/L (21-32); CHLORIDE 107 mmol/L (98-107); CHOLESTEROL 166 mg/dl (0-200); CREATININE 0.81 mg/dl (0.60-1.20); GLUCOSE 141 mg/dl (70-99); SODIUM 142 mmol/L (136-145); TRIGLYCERIDES 144 mg/dl (0-150); VERY LOW DENSITY LIPOPROT CALC 29 mg/dl
[2017-02-24 13:33] LABS: ALB/GLOB RATIO 0.9 (0.9-2); ALKALINE PHOSPHATASE 109 U/L (45-117); ALT/SGPT 19 U/L (12-78); AST/SGOT 17 U/L (15-37); CHOLESTEROL/HDL RATIO 3.3; HDL CHOLESTEROL 51 mg/dl; LDL CHOLESTEROL CALCULATED 86 mg/dl
== END | disposition home or self-care (01) ==
LOC: C.LABBFT 09:34
PROVIDERS: ATTEND Internal Medicine
DX: E11.42 Type 2 diabetes mellitus with diabetic polyneuropathy (principal)

== ENCOUNTER → 2017-06-29 | Outpatient (CLI) | payer BC ==
[~2017-06-29] MED LIST changes: +METF-384 PO
== END | disposition home or self-care (01) ==
LOC: C.MAMM 10:19
PROVIDERS: ATTEND Physician Assistant Medical
DX: Z13.820 Encounter for screening for osteoporosis (principal); Z78.0 Asymptomatic menopausal state

== ENCOUNTER → 2017-07-06 | Outpatient (CLI) | payer BC | END | disposition home or self-care (01) | LOC: C.LABBFT 09:39 | PROVIDERS: ATTEND Physician Assistant Medical | DX: E55.9 Vitamin D deficiency, unspecified (principal) ==

== ENCOUNTER 2017-07-16 12:22 | Emergency (ER) | payer BC ==
[~2017-07-16] VITALS: Ht 160 cm; Wt 109.0 kg
[2017-07-16 12:46] VITALS: TEMP 36.4; Ht 160 cm; Wt 109.0 kg
[2017-07-16 13:10] VITALS: O2SAT 95
[2017-07-16] MEDS ORDERED: METHYLPREDNISOLONE 125 MG VIAL IV STA (13:26)
[2017-07-16] MEDS ORDERED: IPRATROPIUM BROMIDE NEB SOLN 0.02% 2.5 ML VIAL INH ONE (13:30)
[2017-07-16] MEDS ORDERED: LEVALBUTEROL 1.25MG/0.5ML NEB INH ONE (13:30)
[2017-07-16 13:39] VITALS: PULSE 86; O2SAT 96
--- NOTE | 2017-07-16 13:48 | DIAGNOSTIC IMAGING REPORT ---
CHEST ONE VIEW PORTABLE CLINICAL HISTORY: 72 years-old Female presenting with CHEST PAIN. TECHNIQUE: Portable upright AP view of the chest was obtained. COMPARISON: 06/13/2016. FINDINGS: Atherosclerosis of aortic arch. Cardiac silhouette enlarged. Mild bronchial wall thickening. Pulmonary vascular prominence. Lungs and pleural spaces clear. Degenerative changes of the thoracic spine. Upper abdomen normal. IMPRESSION: 1. Cardiomegaly with volume overload. No lizbeth pulmonary edema. Bronchial wall thickening may relate to congestive change. Electronically signed by: Jann Ogden M.D. 07/16/2017 1:47 PM Dictated Date/Time: 07/16/2017 1:46 PM
[2017-07-16 14:22] LABS: BASO % 0.2 %; BASO ABS # 0.02 K/uL (0-0.2); HEMATOCRIT 43.5 % (37-47); IG# 0.09 K/uL (0.00-0.02); LYMPH % 15.1 %; LYMPH ABS # 1.22 K/uL (1.2-3.4); MEAN CELL VOLUME 96.9 fL (80-100); MEAN CORPUSCULAR HEMOGLOBIN 31.2 pg (25-34); MEAN CORPUSCULAR HGB CONC 32.2 g/dl (32-36); MEAN PLATELET VOLUME 10.7 fL (7.4-10.4); MONO % 3.6 %; MONO ABS # 0.29 K/uL (0.11-0.59); NEUT ABS # 6.47 K/uL (1.4-6.5); PLATELET COUNT 247 K/uL (130-400); RED CELL DISTRIBUTION WIDTH CV 15.4 % (11.5-14.5); RED CELL DISTRIBUTION WIDTH SD 54.3 fL (36.4-46.3); WHITE BLOOD COUNT 8.09 K/uL (4.8-10.8)
[2017-07-16] MEDS ORDERED: TIOT1AER2 INH (14:24)
[2017-07-16 14:37] LABS: ALBUMIN 3.2 gm/dl (3.4-5.0); CALCIUM 8.6 mg/dl (8.5-10.1); CREATININE 0.71 mg/dl (0.60-1.20); POTASSIUM 3.3 mmol/L (3.5-5.1)
[2017-07-16 14:40] LABS: TOTAL PROTEIN 7.2 gm/dl (6.4-8.2)
--- NOTE | 2017-07-16 15:28 | EMERGENCY ROOM VISIT NOTE ---
History Report prepared by Harsh: Claudia Stratton Under the Supervision of: Dr. Hari Carter M.D. First contact with patient: 13:00 Chief Complaint: RESPIRATORY PROBLEMS Stated Complaint: CAN'T BREATHE Nursing Triage Summary: Difficulty breathing and productive cough over the past few days. Pt saw PCP Monday and was told she had Bronchitis and prescribed 2 antibiotics and Prednisone. PT stated "My breathing is a little better from when I first got here, I think my meds are kicking in." Patient stated "I am supposed to wear 2L NC of oxygen at all times, but only use it as needed and last night I needed it." History of Present Illness The patient is a 72 year old female who presents to the Emergency Room with complaints of persistent shortness of breath since this morning. She has been sick for a week with a productive cough with yellow sputum. She denies any new chills or fevers in the last three days. She regularly uses inhalers at home. She has recently used her rescue inhaler three times a day. She denies any pain or swelling with her legs. She denies any nausea or vomiting. She has a history of asthma, COPD, DM, and CAD. She has been on Levaquin, Tamiflu, and Prednisone. Per nursing staff, the patient's oxygen saturation was 87% on RA. Source of History: patient Onset: this morning Position: other (global ) Quality: other (shortness of breath) Timing: other (persistent) Associated Symptoms: + cough (productive cough with yellow sputum), No fevers, No chills, No nausea, No vomiting Note: She denies any pain or swelling with her legs. Review of Systems See HPI for pertinent positives & negatives. A total of 10 systems reviewed and were otherwise negative. Past Medical & Surgical Medical Problems: (1) Acu Myocard Infarction,Unspec Site, Episode Unspec (2) Asthma, Unspecified, W (Acute) Exacerbation (3) Coronary Atherosclerosis Of [place] Coronary Vessel (4) Hypertension Nos Old medical records were reviewed. Nurse's notes were reviewed and I agree with. Family History No significant family history Social History Smoking Status: Current Every Day Smoker Alcohol Use: none Drug Use: none Marital Status: single Housing Status: lives alone Occupation Status: retired Current/Historical Medications Scheduled Albuterol Inhaler (Ventolin Inhaler), 2 PUFFS INH QID Aspirin (Aspirin 81), 81 MG PO HS Budesonide/Formoterol Fumarate (Symbicort 160/4.5 Inhaler ), 2 PUFFS INH BID Lovastatin (Mevacor), 20 MG PO HS Metformin Hcl (Glucophage), 2,000 MG PO BID Nitroglycerin (Nitrostat), 0.4 MG UT PRN Tiotropium [place] (Spiriva Respimat), 2 PUFF INH 1630 Scheduled PRN Omeprazole (Prilosec), 20 MG PO DAILY PRN for PRN Allergies Coded Allergies: Amoxicillin (Verified Allergy, Unknown, RASH ITCHY, 07/16/17) [place] (Verified Allergy, Unknown, RASH, 07/16/17) Physical Exam Vital Signs Date Time Temp Pulse Resp B/P (MAP) Pulse Ox O2 Delivery O2 Flow Rate FiO2 07/16/17 15:51 103 22 163/85 91 07/16/17 15:17 105 20 163/85 93 Nasal Cannula 2.0 07/16/17 14:31 105 20 165/69 93 Oxymask 2.0 07/16/17 13:39 86 20 96 Mask 2.0 07/16/17 13:10 95 Oxymask 2.0 07/16/17 13:09 95 Oxymask 2.0 07/16/17 13:09 83 07/16/17 13:08 89 Room Air 07/16/17 12:46 36.4 91 22 164/92 90 Room Air Physical Exam General: Chronically-ill appearing older female in no acute distress. Occasional cough. No respiratory distress. HEENT: Normal cephalic atraumatic. Pupils are equal round and reactive to light. Extraocular movements are intact. Oropharynx is pink with moist mucous membranes. No swelling of the mouth lips or tongue. Neck: Supple with a midline trachea. No meningeal signs or stiffness, no JVD or bruits. No Stridor. Chest: Wheezes bilaterally, though good air movement. No rhonchi. No increased work of breathing. Heart: regular rate and rhythm. Abdomen: Soft nontender, nondistended without rebound guarding or rigidity. Extremities: No cyanosis clubbing or edema. No calf tenderness or assymetry Spine/Back. Non tender to palpation. No CVA tenderness Skin: Good turgor without rashes. Neurologic exam: Cranial nerves two through 12 are intact. Motor and sensation are intact and symmetrical throughout. Medical Decision & Procedures ER Provider Diagnostic Interpretation: Radiology results as stated below per my review and radiologist interpretation: CHEST ONE VIEW PORTABLE CLINICAL HISTORY: 72 years-old Female presenting with CHEST PAIN. TECHNIQUE: Portable upright AP view of the chest was obtained. COMPARISON: 06/13/2016. FINDINGS: Atherosclerosis of aortic arch. Cardiac silhouette enlarged. Mild bronchial wall thickening. Pulmonary vascular prominence. Lungs and pleural spaces clear. Degenerative changes of the thoracic spine. Upper abdomen normal. IMPRESSION: 1. Cardiomegaly with volume overload. No lizbeth pulmonary edema. Bronchial wall thickening may relate to congestive change. Electronically signed by: Jann Ogden M.D. 07/16/2017 1:47 PM Dictated Date/Time: 07/16/2017 1:46 PM Laboratory Results 07/16/17 14:00 Red Blood Count 4.49, Mean Corpuscular Volume 96.9, Mean Corpuscular Hemoglobin 31.2, Mean Corpuscular Hemoglobin Concent 32.2, Mean Platelet Volume 10.7, Neutrophils (%) (Auto) 80.0, Lymphocytes (%) (Auto) 15.1, Monocytes (%) (Auto) 3.6, Eosinophils (%) (Auto) 0.0, Basophils (%) (Auto) 0.2, Neutrophils # (Auto) 6.47, Lymphocytes # (Auto) 1.22, Monocytes # (Auto) 0.29, Eosinophils # (Auto) 0.00, Basophils # (Auto) 0.02 07/16/17 14:00 Test 07/16/17 14:00 07/16/17 14:09 White Blood Count 8.09 K/uL (4.8-10.8) Red Blood Count 4.49 M/uL (4.2-5.4) Hemoglobin 14.0 g/dL (12.0-16.0) Hematocrit 43.5 % (37-47) Mean Corpuscular Volume 96.9 fL (80-100) Mean Corpuscular Hemoglobin 31.2 pg (25-34) Mean Corpuscular Hemoglobin Concent 32.2 g/dl (32-36) Platelet Count 247 K/uL (130-400) Mean Platelet Volume 10.7 fL (7.4-10.4) Neutrophils (%) (Auto) 80.0 % Lymphocytes (%) (Auto) 15.1 % Monocytes (%) (Auto) 3.6 % Eosinophils (%) (Auto) 0.0 % Basophils (%) (Auto) 0.2 % Neutrophils # (Auto) 6.47 K/uL (1.4-6.5) Lymphocytes # (Auto) 1.22 K/uL (1.2-3.4) Monocytes # (Auto) 0.29 K/uL (0.11-0.59) Eosinophils # (Auto) 0.00 K/uL (0-0.5) Basophils # (Auto) 0.02 K/uL (0-0.2) RDW Standard Deviation 54.3 fL (36.4-46.3) RDW Coefficient of Variation 15.4 % (11.5-14.5) Immature Granulocyte % (Auto) 1.1 % Immature Granulocyte # (Auto) 0.09 K/uL (0.00-0.02) Anion Gap 9.0 mmol/L (3-11) Est Creatinine Clear Calc Drug Dose 82.3 ml/min Estimated GFR () 97.3 Estimated GFR (Non- 83.9 BUN/Creatinine Ratio 20.3 (10-20) Calcium Level 8.6 mg/dl (8.5-10.1) Total Bilirubin 0.3 mg/dl (0.2-1) Direct Bilirubin 0.1 mg/dl (0-0.2) Aspartate Amino Transf (AST/SGOT) 24 U/L (15-37) Alanine Aminotransferase (ALT/SGPT) 34 U/L (12-78) Alkaline Phosphatase 107 U/L (45-117) Total Protein 7.2 gm/dl (6.4-8.2) Albumin 3.2 gm/dl (3.4-5.0) Lipase 64 U/L (73-393) Bedside Troponin I < 0.030 ng/ml (0-0.045) Laboratory studies as stated above per my review. Medications Administered Medications (Trade) Dose Ordered Sig/Kiersten Route Start Time Stop Time Status Last Admin Dose Admin Levalbuterol (Xopenex 1.25MG/ 0.5ML Neb) 5 mg ONE ONCE INH 07/16/17 13:30 07/16/17 13:31 DC 07/16/17 13:38 5 MG Ipratropium [place] (Atrovent 0.02% 0.5MG/2.5ML Neb) 2 mg ONE ONCE INH 07/16/17 13:30 07/16/17 13:31 DC 07/16/17 13:38 2 MG Methylprednisolone Sodium Succinate (Solu-Medrol IV) 125 mg NOW STAT IV 07/16/17 13:26 07/16/17 13:29 DC 07/16/17 14:09 125 MG ECG Indication: SOB/dyspnea Rate (beats per minute): 83 Rhythm: normal sinus Findings: no acute ischemic change, no ectopy Change: no significant change (When compared to 09/10/2014) Change: Patient's electrocardiogram was interpreted by me. ED Course 1319: Past medical records reviewed. The patient was evaluated in room A3, and a complete history and physical examination were performed. 1326: Ordered Solu-Medrol 125 mg IV 1330: Ordered Ipratropium, [place] 2 mg INH and Levalbuterol 5 mg INH 1525: I reassessed the patient at this time. She is feeling better and resting comfortably. I discussed the results and treatment plan with the patient. I answered all pertaining questions that she had. I recommend she be further evaluated and she declined. She expressed understanding and verbalized agreement. The patient will be discharged home. Medical Decision Differentials include, but are not limited to PNA, influenza, sepsis, COPD exacerbation, and cardiac disease. This patient comes in as described above. She was placed in room A3. She is here for treatment and evaluation of shortness of breath. She has a history of COPD/asthma and is currently being treated with steroids and antibiotics and Tamiflu. She got more short of breath today after coughing she says she feels better. She does wear home oxygen at home. IV access was established and she was given 1 hour Xopenex/Atrovent continuous neb. She was also given Solu- Medrol 125 mg IV. She is feeling a lot better. Her lungs still have wheezes but she appears no distress. Chest x-ray does not show any infiltrate pneumonia or pneumothorax. She has cardiomegaly but no overt CHF. Her EKG and her symptoms does not suggest acute coronary syndrome or arrhythmia. She has no significant electrolyte or metabolic abnormalities. On reassessment, she appears to be a much better. He does have some mild hypoxemia with an O2 sat in the high 80s however is may be more chronic and she does were oxygen home. I discussed this with her. I recommended that we keep her for further treatment and evaluation but she adamantly declines and wants to go home at this point and I don't think that's unreasonable but I encouraged her to follow- up tomorrow with her primary doctor return ER if symptoms worsen. She was happy with the plan and was discharged to home. Medication Reconcilliation Current Medication List: was personally reviewed by me Blood Pressure Screening Patient's blood pressure: Elevated blood pressure Blood pressure disposition: Elevated BP felt to be situational Impression Primary Impression: COPD exacerbation Additional Impressions: Bronchitis SOB (shortness of breath) Scribe Attestation The scribe's documentation has been prepared under my direction and personally reviewed by me in its entirety. I confirm that the note above accurately reflects all work, treatment, procedures, and medical decision making performed by me. Departure Information Dispostion Home / Self-Care Referrals Kevin Koroma M.D. (PCP) Forms HOME CARE DOCUMENTATION FORM, IMPORTANT VISIT INFORMATION, WORK / SCHOOL INSTRUCTIONS Patient Instructions My [facility] [employer] Additional Instructions Rest. Drink plenty of fluids. Continue to use your antibiotics and steroids and inhalers Return to ER if your symptoms get worse, shortness of breath, any new problems or concerns Follow-up with your doctor in 1-2 days for recheck. Problem Qualifiers
[2017-07-16 15:51] VITALS: BP 163/85; PULSE 103; O2SAT 91
== END 2017-07-16 15:49 | disposition home or self-care (01) ==
LOC: C.EDB 12:23 → C.EDA 15:49
DX: J44.1 Chronic obstructive pulmonary disease with (acute) exacerbation (principal); J40 Bronchitis, not specified as acute or chronic; E11.9 Type 2 diabetes mellitus without complications; I25.10 Atherosclerotic heart disease of native coronary artery without angina pectoris; I10 Essential (primary) hypertension; F17.200 Nicotine dependence, unspecified, uncomplicated; I25.2 Old myocardial infarction; Z79.82 Long term (current) use of aspirin; Z79.84 Long term (current) use of oral hypoglycemic drugs; Z79.899 Other long term (current) drug therapy

== ENCOUNTER → 2017-08-31 | Outpatient (CLI) | payer BC ==
[~2017-08-31] MED LIST changes: +TIOT1AER2 INH
[2017-08-31 12:17] LABS: BASO % 0.3 %; BASO ABS # 0.02 K/uL (0-0.2); EOS % 0.9 %; EOS ABS # 0.07 K/uL (0-0.5); HEMATOCRIT 47.2 % (37-47); HEMOGLOBIN 15.7 g/dL (12.0-16.0); IG# 0.04 K/uL (0.00-0.02); LYMPH % 31.6 %; LYMPH ABS # 2.44 K/uL (1.2-3.4); MEAN CELL VOLUME 95.2 fL (80-100); MEAN CORPUSCULAR HEMOGLOBIN 31.7 pg (25-34); MEAN CORPUSCULAR HGB CONC 33.3 g/dl (32-36); MEAN PLATELET VOLUME 10.4 fL (7.4-10.4); MONO % 6.3 %; MONO ABS # 0.49 K/uL (0.11-0.59); NEUT % 60.4 %; NEUT ABS # 4.67 K/uL (1.4-6.5); PLATELET COUNT 267 K/uL (130-400); RED CELL DISTRIBUTION WIDTH CV 15.3 % (11.5-14.5); WHITE BLOOD COUNT 7.73 K/uL (4.8-10.8)
[2017-08-31 12:34] LABS: ALBUMIN 3.4 gm/dl (3.4-5.0); ALT/SGPT 18 U/L (12-78); BLOOD UREA NITROGEN 8 mg/dl (7-18); CALCIUM 8.8 mg/dl (8.5-10.1); CARBON DIOXIDE 29 mmol/L (21-32); CHOLESTEROL 194 mg/dl (0-200); CREATININE 0.81 mg/dl (0.60-1.20); GLUCOSE 114 mg/dl (70-99); POTASSIUM 3.2 mmol/L (3.5-5.1); SODIUM 142 mmol/L (136-145)
[2017-08-31 12:44] LABS: ALKALINE PHOSPHATASE 115 U/L (45-117); AST/SGOT 13 U/L (15-37); LDL CHOLESTEROL CALCULATED 111 mg/dl; TOTAL PROTEIN 7.4 gm/dl (6.4-8.2)
[2017-08-31 13:00] LABS: HEMOGLOBIN A1C 6.6 % (4.5-5.6)
== END | disposition home or self-care (01) ==
LOC: C.LABBFT 08:46
PROVIDERS: ATTEND Internal Medicine
DX: J44.9 Chronic obstructive pulmonary disease, unspecified (principal); E11.42 Type 2 diabetes mellitus with diabetic polyneuropathy; E55.9 Vitamin D deficiency, unspecified

== ENCOUNTER → 2017-10-03 | Outpatient (CLI) | payer BC | END | disposition home or self-care (01) | LOC: C.LAB 16:14 | PROVIDERS: ATTEND Physician Assistant Medical | DX: R19.7 Diarrhea, unspecified (principal) ==

== ENCOUNTER → 2017-10-27 | Outpatient (CLI) | payer BC ==
[2017-10-27 13:06] LABS: BLOOD UREA NITROGEN 8 mg/dl (7-18); CALCIUM 9.3 mg/dl (8.5-10.1); CARBON DIOXIDE 29 mmol/L (21-32); CREATININE 0.74 mg/dl (0.60-1.20); GLUCOSE 122 mg/dl (70-99); SODIUM 141 mmol/L (136-145)
== END | disposition home or self-care (01) ==
LOC: C.LABBFT 08:37
PROVIDERS: ATTEND Physician Assistant Medical
DX: R61 Generalized hyperhidrosis (principal); I10 Essential (primary) hypertension

== ENCOUNTER 2024-06-05 02:29 | Inpatient (IN) ==
[2024-06-05] MEDS ORDERED: STAT IV Infusion **Titration per Protocol STA (02:34)
[2024-06-05] MEDS: NOREPINEPHRINE/D5W 4 MG/250 ML PLCT IV SCH (02:37)
[2024-06-05] MEDS: SODIUM BICARB 8.4% INJ 50 MEQ/50 ML SYR IV STA (02:39)
[2024-06-05] MEDS: CALCIUM CHLORIDE 10% 1,000 MG in DEXTROSE 5% 50 ML IV STA ×2 (02:40→03:26)
[2024-06-05] MEDS: OPTIRAY 320 125ml IV ONE (02:51)
[2024-06-05 02:52] LABS: iSTAT Creatinine 1.1 mg/dl (0.6-1.3); iSTAT Hemoglobin 12.6 g/dl (12.0-16.0); iSTAT Potassium 4.4 mmol/L (3.3-5.0)
[2024-06-05] MEDS: NOREPINEPHRINE/D5W 4 MG/250 ML IV ONE (02:52)
[2024-06-05 02:53] LABS: iSTAT Arterial Blood Gas HCO3 19 meg/L (19-24); iSTAT Arterial Blood Gas pCO2 98 mmHg (35-46); iSTAT Arterial Blood Gas pO2 92 mmHg (80-95); iSTAT Carbon Dioxide 22 mmol/L (24-31); iSTAT Hematocrit 37 % (37-47); iSTAT Hemoglobin 12.6 g/dl (12.0-16.0); iSTAT Potassium 4.8 mmol/L (3.3-5.0); iSTAT Sodium 137 mmol/L (135-144)
[2024-06-05 03:16] LABS: Albumin Globulin Ratio 1.2 (0.9-2); Albumin Level 2.9 gm/dl (3.4-5.0); BUN Creatinine Ratio 18.6 (10-20); Bilirubin,Total 0.4 mg/dl (0.2-1.0); Calcium 7.6 mg/dl (8.6-10.3); Creatinine Clr Calc Pharmacy 41.1 ml/min; Globulin 2.5 gm/dl (2.5-4.0); Magnesium 2.3 mg/dl (1.7-2.4); Potassium 4.7 mmol/L (3.5-5.1); Total Protein 5.4 gm/dl (6.0-8.3)
[2024-06-05] MEDS ORDERED: VANCOMYCIN CONSULT ACTIVE PRN ×2 (03:17→06:21)
[2024-06-05 03:22] LABS: Basophils # (auto) 0.03 K/uL (0.00-0.20); Basophils % (auto) 0.3 %; Echinocytes 1+; Eosinophils # (auto) 0.01 K/uL (0.00-0.50); Eosinophils % (auto) 0.1 %; Hematocrit (blood only) 37.7 % (37.0-47.0); Hemoglobin 11.1 g/dl (12.0-16.0); Immature Granulocytes # (auto) 0.33 K/uL (0.01-0.20); Immature Granulocytes % (auto) 3.3 %; Lymphocytes # (auto) 2.26 K/uL (1.20-3.40); Lymphocytes % (auto) 22.8 %; Mean Corpuscular Hemoglobin 29.7 pg (25.0-34.0); Mean Corpuscular Hgb Conc 29.4 g/dL (32.0-36.0); Mean Corpuscular Volume 100.8 fL (80.0-100.0); Mean Platelet Volume 11.9 fL (9.4-12.4); Monocytes # (auto) 0.49 K/uL (0.11-0.59); Monocytes % (auto) 4.9 %; Neutrophils # (auto) 6.79 K/uL (1.40-6.50); Neutrophils % (auto) 68.6 %; Nucleated RBC # (auto) 0.03 K/uL (0.00-0.12); Nucleated RBC % (auto) 0.3 %; Platelet Count 97 K/uL (130-400); Platelet Estimate Decreased (Normal); RDW Coefficient of Variation 16.3 % (11.5-14.5); RDW Standard Deviation 60.2 fL (36.4-46.3); Red Blood Count 3.74 M/uL (4.20-5.40); White Blood Count 9.91 K/ul (4.8-10.8)
[2024-06-05 03:23] LABS: INR 1.4 (0.9-1.1)
[2024-06-05] MEDS: SODIUM CHLORIDE 0.9% 1,000 ML IV SCH (03:30)
[2024-06-05 03:31] LABS: Thyroid Stimulating Hormone 6.326 uIu/ml (0.300-4.500)
[2024-06-05] MEDS: CEFEPIME 2000MG 2,000 MG/20 ML SYR IV STA (03:32)
--- NOTE | 2024-06-05 03:32 | XRay Report ---
EXAM: XR chest 1V portable CLINICAL HISTORY: INTUBATION REVAK DIDN'T WANT ANOTHER IMAGE, XRAY USED FOR TUBE CHECK TECHNIQUE: An X-ray image of the chest is obtained in AP projection. COMPARISON: 04/25/2024 was reviewed. FINDINGS: ET tube is seen at a distance of about 6.4 cm from the isaias. (slightly high in position, about midway within the tracheal column) IMPRESSION: 1. ET tube is seen at a distance of about 6.4 cm from the isaias. (slightly high, about midway within the tracheal column) 2. Suggested improvement regarding the degree of previously visualized left pleural effusion. Electronically signed by Gerardo Amanda 06-05-2024 03:32 AM
[2024-06-05] MEDS: PROPOFOL IV EMULSION 10 MG/ML 100 ML VIAL IV ONE (03:34)
[2024-06-05] MEDS: VANCOMYCIN HCL 1,500 MG in SODIUM CHLORIDE 0.9% 500 ML IV ONE (03:35)
[2024-06-05 03:36] LABS: Troponin I High Sensitivity 108.3 pg/ml (0-14)
--- NOTE | 2024-06-05 03:48 | CT Scan Report ---
EXAM: CT head/brain wo con CLINICAL HISTORY: POST CARDIAC ARREST ASSESSMENT. TECHNIQUE: An axial non-contrast CT scan of the brain was performed from the skull base to the high parietal region. One of the following dose reduction techniques was utilized for this exam: Automated exposure control, adjustment of the mA and/or kV according to patient size, and use of iterative reconstruction. CTDI: 36.55 mGy, DLP: 2993.41 mGy*cm COMPARISON: None. FINDINGS: No definite calvarium fractures. A hemorrhage with a thickness of 1.4 cm in the galeal tissue in the left frontal region. There are tiny ill-defined hypodense areas noted in the subcortical white matter and the periventricular region bilaterally, suggestive of moderate microvascular ischemic changes. No established territorial infarction was identified. No evidence of intracerebral hemorrhage. No extra axial hematoma. No other focal parenchymal abnormalities are demonstrated. Pratt-white matter differentiation is maintained. No midline shifts or deformity. Normal configuration of the cerebral ventricles. Normal CT appearance of the posterior fossa structures namely the cerebellar hemispheres, brainstem, and cerebellar peduncles. The cerebello-pontine angles are clear. The pituitary gland, the pineal gland, and the optic chiasm are unremarkable. IMPRESSION: 1. No intracranial acute injury was noted. 2. A hemorrhage with a thickness of 1.4 cm in the galeal tissue in the left frontal region. 3. Moderate microvascular ischemic changes. Electronically signed by Gerardo Amanda 06-05-2024 03:48 AM
[2024-06-05 03:51] LABS: Appearance Urine Cloudy (Clear); Bacteria Urine Automated 1+ (None Seen); Bilirubin Urine Negative (Negative); Blood Urine 3+ (Negative); Color Urine Yellow; Glucose Urine UA Trace (Negative); Ketones Urine Negative (Negative); Leukocyte Esterase Urine Negative (Negative); Nitrite Urine Negative (Negative); Protein Urine 3+ (Negative); Specific Gravity Urine 1.021 (1.000-1.030); Urobilinogen Urine Negative (Negative); pH Urine 8.5 (4.5-7.5)
--- NOTE | 2024-06-05 03:56 | CT Scan Report ---
EXAM: CT cervical spine wo con CLINICAL HISTORY: POST CARDIAC ARREST ASSESSMENT TECHNIQUE: A CT scan of the cervical spine was performed without the administration of intravenous contrast. Contiguous axial images were obtained from the skull base to the upper thoracic spine. Coronal and sagittal reformatted images were also reviewed. One of the following dose-reduction techniques was utilized for this exam. Automated exposure control, adjustment of the mA and/or kV according to patient size, and use of iterative reconstruction. (CTDI: 36.55 mGy, DLP: 2993.41 mGy*cm) COMPARISON: MR on 09/25/2023. FINDINGS: No evidence of acute fracture or dislocation. No signs of lytic or sclerotic lesions. Severe spondylotic changes in the cervical spine with multilevel marginal bony hypertrophies, anterior vertebra bridging, facet arthropathic changes, endplate changes, and reduced to lost intervertebral disc spaces. Multilevel disc bony hypertrophy complexes in combination with facet arthropathic changes exert effects on the spinal canal and neural foraminal. Atlantoaxial degenerative changes. Soft tissue calcification is seen in the posterior aspect of the neck IMPRESSION: 1. No interval change in comparison with MR on 09/25/2023. No evidence of acute fracture or dislocation. 2. Severe spondylotic changes in the cervical spine. Electronically signed by Gerardo Amanda 06-05-2024 03:56 AM
[2024-06-05 04:06] LABS: T4 Free Thyroxine 0.58 ng/dl (0.61-1.60)
[2024-06-05 04:15] LABS: iSTAT Arterial Blood Gas HCO3 20 meg/L (19-24); iSTAT Arterial Blood Gas pCO2 47 mmHg (35-46); iSTAT Arterial Blood Gas pH 7.24 (7.35-7.45); iSTAT Arterial Blood Gas pO2 75 mmHg (80-95); iSTAT Carbon Dioxide 21 mmol/L (24-31); iSTAT Hematocrit 42 % (37-47); iSTAT Hemoglobin 14.3 g/dl (12.0-16.0); iSTAT Sodium 136 mmol/L (135-144)
[2024-06-05 04:21] LABS: Adenovirus PCR Not Detected (NotDetected); Bordetella parapertussis PCR Not Detected (NotDetected); Bordetella pertussis PCR Not Detected (NotDetected); Chlamydia pneumoniae PCR Not Detected (NotDetected); Coronavirus 229E PCR Not Detected (NotDetected); Coronavirus CoV-2 (COVID19)PCR DETECTED (NotDetected); Coronavirus HKU1 PCR Not Detected (NotDetected); Coronavirus NL63 PCR Not Detected (NotDetected); Coronavirus OC43PCR Not Detected (NotDetected); Human Metapneumovirus PCR Not Detected (NotDetected); Influenza A PCR Not Detected (NotDetected); Influenza B PCR Not Detected (NotDetected); Mycoplasma pneumoniae PCR Not Detected (NotDetected); Parainfluenza Virus 1 PCR Not Detected (NotDetected); Parainfluenza Virus 2 PCR Not Detected (NotDetected); Parainfluenza Virus 3 PCR Not Detected (NotDetected); Parainfluenza Virus 4 PCR Not Detected (NotDetected); Respiratory Syncytial VirusPCR Not Detected (NotDetected); Rhinovirus/Enterovirus PCR Not Detected (NotDetected)
[2024-06-05 04:25] LABS: Amphetamines+Metham, Urine Neg (Neg); Barbiturates, Urine Neg (Neg); Benzodiazepine, Urine Neg (Neg); Cocaine, Urine Neg (Neg); Fentanyl, Urine Neg (Neg); MDMA (Ecstacy), Urine Neg (Neg); Marijuana, Urine Neg (Neg); Methadone, Urine Neg (Neg); Opiate, Urine Neg (Neg); Phencyclidine, Urine Neg (Neg)
--- NOTE | 2024-06-05 04:41 | Emergency Department Note ---
Impression & Plan Cardiac arrest, Hypotension, COVID-19, Acidosis, lactic, Multiple rib fractures, Elevated troponin, Diarrhea ED Provider Note ED Provider Note NAME: TEODORO VALENTINE AGE:79 SEX: Female : 1945 ARRIVES VIA: EMS INFORMANT: EMS ED PROVIDER(s): Bee Shaffer DO CHIEF COMPLAINT: Cardiac arrest HPI: This is an 79-year-old female brought in by EMS as a cardiac arrest with ROSC. EMS reports they were initially called to the residence after patient had a syncopal event and fallen off the toilet. Upon BLS arrival patient was unresponsive with a heart rate in the 30s and hypoxia in the 80s. Patient then lost pulses and stopped breathing and CPR was started. [employer] able to administer epi and intubated the patient with a 7.0 ET tube. No difficulty managing the airway and no difficulty bagging after intubation per their report. Patient was given 3 rounds of epi with ROSC. En route while IV fluids were running patient began to have worsening hypotension and was given push dose pressors. By the time of arrival here patient had 2 L of IV fluids additionally. She was still hypotensive. She had not received any sedation postintubation. Blood sugar prehospital reassuring. PAST MEDICAL HISTORY:See Below PAST SURGICAL HISTORY:See Below FAMILY HISTORY:See Below SOCIAL HISTORY:See Below HOME MEDICATIONS:See Below ALLERGIES:See Below VITALS:See Below PHYSICAL EXAMINATION: GENERAL: Unresponsive, unwell appearing HEAD: nc, left forehead contusion, no other evidence of facial trauma EYE EXAM: Pupils fixed and midposition OROPHARYNX: Dry mucous membranes, ET tube present NECK: supple, no adenopathy, c-collar in place from EMS LUNGS: Coarse bilaterally to auscultation. Normal chest wall mechanics with bagging, no difficulty bagging HEART: no murmurs, S1 normal and S2 normal, skin tear noted to the central chest from CPR ABDOMEN: abdomen soft, non-tender, normo-active bowel sounds, no masses BACK: Back is symmetrical on inspection and there is no deformity SKIN: no rashes, petechiae, orbruising UPPER EXTREMITIES: upper extremities are grossly normal. FROM, nml pulses b/l. No evidence of trauma or deformity. LOWER EXTREMITIES: No pitting edema. FROM, nml pulses b/l. No evidence of trauma or deformity. NEURO EXAM: GCS 3 Vital Signs: reviewed and remarkable Differential Diagnosis: dehydration, stroke, anemia, hypoglycemia, hyponatremia, hypernatremia, urinary tract infection, pneumonia, bronchitis, sepsis, gastroenteritis, dysrhythmia, ACS, metabolic abnormalities, as well as others were considered MEDICAL DECISION MAKING: This is an 79-year-old female who presents emergency department via EMS following cardiac arrest. EMS initially called for a possible syncopal event unfortunately patient became unresponsive and went into cardiac arrest. CPR was initiated and upon arrival coal washer tender she was given epinephrine and intubated with ROSC. En route patient became more hypotensive and was given push dose pressors by EMS. On arrival here patient hypotensive however still had a pulse and was being bagged. Patient did not received any sedation following intubation and was still not showing any purposeful movements. Patient completed 2 L of IV fluids by the time of arrival. Given persistent hypotension she was started on Levophed. Second IV was established, additional labs drawn and sent, ABG performed, EKG performed and interpreted by me at bedside. Check 6 ray showed ET tube in position although slightly elevated, no obvious focal consolidation, pleural effusion, or wide mediastinum. Bedside echo performed with help of TJ Campbell. I did contact the overnight RIVETING MACHINE OPERATOR TAPE CONTROL for the ICU who came to bedside additionally. Following improved blood pressure on Levophed with maintenance IV fluids running patient sent for CTs. Swab for viral URI obtained and sent also. Initial ABG with significant acidemia. Patient was given additional bicarb here as well as calcium from the code cart. No obvious intracranial hemorrhage noted on the head CT. Patient began having copious amounts of diarrhea at bedside additionally. Stool culture sent and eventually rectal tube placed. Nasal swab noted to be positive for COVID. Stool culture ultimately positive for E. coli additionally. Additional imaging as read by outside radiology was reassuring. Case discussed with hospitalist team for additional evaluation and management. Decadron added for hypoxia in the setting of COVID. Repeat ABG showed improvement. Initial lactic acid 10, repeat was slightly downtrending. Patient renal function intact, mild anemia noted however not significant, no leukocytosis. Blood cultures added as well as empiric antibiotics including vancomycin and cefepime. Patient's family was brought into the waiting room area and I updated them initially while patient went to CAT scan. They were updated again as CAT scan results were starting to return and additional labs were available. Family does state they believe she did have end-of-life wishes listed in her will. They were encouraged to try to find these or discuss this as a family given critical condition at this time. They do state patient had a fall with significant head trauma and facial bruising/contusion several weeks ago. They state the contusion to the left forehead is markedly improved compared to the initial traumatic event. Patient was reexamined multiple times throughout. We did attempt to wean down her FiO2 initially however she became hypoxic we had to return to 80%. No other change in patient's repeat exams. Consultation(s): 0235: Discussed with Bob Alexis, RIVETING MACHINE OPERATOR TAPE CONTROL with ICU who came to bedside. 0335: Discussed with Dr. Cheng, [place] hospitalist team, for additional evaluation and mgmt. 0555: Discussed with Dr. Noel, ICU. ER Treatment Provided: See below Diagnostics Interpreted By Me: -ECG: Normal sinus at 89, normal axis, right bundle branch block, nonspecific ST/T wave changes -Cardiac Monitoring: An order was placed for continuous cardiac monitoring. The monitor shows a rate of 92 with normal sinus rhythm. -Laboratory studies: As stated above and show below. -Imaging studies: cxr: No cardiomegaly, no pleural effusions, no wide mediastinum, no focal consolidation Triage Nursing Note Reviewed Prior/Outside Records Reviewed -cardiology note from 2021 Critical Care: Critical care of 78 min performed to assess and manage high likelihood of life-threatening cardiac arrest, involving labs and imaging performed with assessment to evaluate cardiac arrest diagnosis with frequent reassessment. This time includes bedside time, treatment discussions with patient/family/consultants, documentation time and excludes procedure time. Past Med/Surg History Problem List (Updated 06/05/24 @ 06:29 by Bee Shaffer DO) Diarrhea (Acute) Elevated troponin (Acute) Multiple rib fractures (Acute) High anion gap metabolic acidosis Shock Admitted to intensive care unit Acidosis, lactic (Acute) COVID-19 (Acute) Hypotension (Acute) Cardiac arrest (Acute) Abnormal ultrasound of uterus Osteoarthritis of hips, bilateral Abnormal chest CT Unintentional weight loss Osteomyelitis of cervical spine Discitis of cervical region Multifocal pneumonia Diabetes mellitus, type 2 Diet controlled, no meds Encounter for pre-operative examination COPD (chronic obstructive pulmonary disease) HTN (hypertension) 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 (Acute) Sensorineural hearing loss (SNHL) of both ears (Acute) Restrictive lung disease (Acute) Postmenopausal bleeding (Acute) PAD (peripheral artery disease) (Acute) Obstructive sleep apnea of adult (Acute) Obesity, Class II, BMI 35-39.9 (Acute) Microalbuminuria (Acute) Lumbar canal stenosis (Acute) Hypercholesterolemia (Chronic) Hiatal hernia (Acute) Excessive sweating (Acute) Endometrial mass (Acute) Depression (Acute) Current tobacco use (Acute) Colon polyps (Acute) CAD (coronary artery disease) (Chronic) Atherosclerotic heart disease of [place] coronary artery with other forms of angina pectoris (Acute) Asthma (Acute) Anxiety (Acute) Multiple pulmonary nodules determined by computed tomography of lung Allergic rhinitis Urinary incontinence History of colon polyps Chronic bronchitis Emma laryngitis Dysphonia Dysphonia plicae ventricularis History of myocardial infarct at age greater than 60 years Traumatic wound dehiscence Polyp of vocal cord and larynx Dysphagia Chronic issues x years, unchanged GERD (gastroesophageal reflux disease) Medical History Carotid artery disease Carotid doppler 09/2022: < 50% JACOB/LICA stenosis Edema of both lower extremities Chronic respiratory failure with hypoxia O2 2L PRN exertion by pulmonary, per patient no recent use O2 96% RA at PAT visit 04/10/23 CAD (coronary artery disease) PCI to LAD 2001 for PR Follows with [facility] cardiology Macular degeneration Pulmonary nodules Follows with [facility] pulm PAD (peripheral artery disease) Thyroid nodule monitors Incisional hernia Current, r/t bladder sling 2000 Osteoarthritis Hiatal hernia Hearing deficit Myocardial Infarction PCI to LAD 2001 for PR Hyperlipidemia Hypertension Sleep apnea CPAP (compliant) Chronic obstructive pulmonary disease Asthma Surgical History History of surgery Micro Suspension Laryngoscopy with biopsies History of right cataract surgery History of cataract surgery R/L History of esophagogastroduodenoscopy (EGD) History of colonoscopy History of breast lump removal History of dilation and curettage Status post left knee replacement Left TKA (03/29/18): SAB at L3-4 + PNB at [facility] History of carpal tunnel release History of tooth extraction History of surgery Bladder sling History of bilateral tubal ligation Hx of foot surgery Right Status post biopsy of thyroid gland "Benign" History of cardiac cath PCI to LAD 2001 Family History Brother Myocardial infarction Lung cancer Mother Skin cancer Arthritis History of gallbladder disease Myocardial infarction Pulmonary embolism Father Coronary heart disease Acute myocardial infarction Myocardial infarction Grandmother (Paternal) Skin cancer Brother Leukemia Myocardial infarction History of coronary artery bypass graft Grandfather (Paternal) Myocardial infarction Son Diabetes Other No family history of adverse response to anesthesia No family history of bleeding disorder Denies family history of Ovarian cancer Prostate cancer Breast cancer Colorectal cancer Social History Smoking Status: Unknown if ever smoked Tobacco Type: Cigarettes Age Started Using Tobacco: 15; packs per day: 1; Cigarettes Per Day: 1 PPD x 50+ years (intermittent); Second Hand Exposure: No; Do You Dip or Chew Tobacco: No; Hx Alcohol Use: No Hx Substance Use: No Preferred Language: [place] Communication Ability: Effective Visual Impairment: Limited Hearing Ability: Hard of Hearing Medical Sales Consultant Required: No Beliefs That Will Affect Care: None marital status: Single Current Living Situation: Family Current Living Situation Comment: with her son current occupational status: retired current occupation: retired from [employer] How many Children do You have: 2 How many Children do You have Comment: Son works during the day other: Ex-daughter in law assists with wound caregivers Feels Safe at Home: Yes Safety Concerns Comment: Patient reports falling and is concerned for falling at home alone Childhood Exposure to Second-Hand Smoke: Yes Diet: regular Diet Comment: Patient reports eating one meal a day. caffeine: Yes Dental Care, Regularly: No Physical Activity Frequency: Does not Exercise Seatbelt Use: never Sunscreen Use: No Assistive Devices: Cane, CPAP, Denture - Upper, Glasses and Nebulizer Allergies Allergies Allergy/AdvReac Type Severity Reaction Status Date / Time amoxicillin Allergy Intermediate Rash, itchy Verified 04/23/24 08:52 strawberry Allergy Intermediate Rash Verified 04/23/24 08:52 nickel Allergy Mild Itchy Verified 04/23/24 08:52 metformin AdvReac Intermediate Diarrhea Verified 04/23/24 08:52 Home Meds Home Medications Medication Instructions Recorded Confirmed aspirin 81 mg tablet,delayed 81 mg PO HS 03/07/18 04/23/24 release vitamins A,C,G-[id number] 2,148 2 tab PO BID 03/07/18 04/23/24 mcg-113 mg-45 mg-17.4 mg tablet (PreserVision AREDS) acetaminophen 500 mg tablet 1,000 mg PO UD PRN Fever Or Pain 01/17/19 04/23/24 ibuprofen 200 mg tablet 200 mg PO Q6H PRN 06/19/23 04/23/24 Previous Rx's Medication Instructions Recorded Flutter Valve #1 ea 04/04/22 rosuvastatin 20 mg tablet (Crestor) 20 mg PO DAILY #90 tabs 07/10/23 Flutter Valve #1 ea 07/17/23 sodium chloride 7 % for 1 inh inhalation BID #240 mL 07/17/23 nebulization CPAP Machine #1 ea 11/30/23 albuterol sulfate 90 mcg/actuation 2 puff inhalation Q6H PRN 11/30/23 aerosol inhaler (Ventolin HFA) shortness of breath or wheezing #18 grams fluticasone fur. 100 mcg-umeclid 1 inh inhalation DAILY #60 ea 11/30/23 62.5 mcg-vilant 25 mcg inhalat.powder (Trelegy Ellipta) ipratropium 0.5 mg-albuterol 3 mg 3 ml inhalation Q8H PRN shortness 11/30/23 (2.5 mg base)/3 mL nebulization of breath or wheezing #180 mL soln nitroglycerin 0.4 mg sublingual 0.4 mg sublingual UD PRN chest 01/19/24 tablet pain #30 tabs hydrocortisone 2.5 % topical cream 1 applic AK BID PRN hemorrhoids 2 02/13/24 with perineal applicator weeks #30 grams citalopram 20 mg tablet (Celexa) 20 mg PO DAILY #90 tabs 03/06/24 furosemide 40 mg tablet 40 mg PO QAM #7 tabs 04/26/24 cefuroxime axetil 500 mg tablet 500 mg PO Q12H 10 days #20 tabs 05/02/24 losartan 25 mg tablet 25 mg PO QAM #90 tabs 05/29/24 metoprolol tartrate 100 mg tablet 100 mg PO BID #180 tabs 05/29/24 Results & Data (ED) Vital Signs Vital Signs - 24 hr 06/05/24 02:33 06/05/24 02:34 06/05/24 02:34 Temperature Temperature Source Pulse Rate 89 Pulse Rate [Apical] 89 Pulse Rate from SpO2 Sensor Respiratory Rate Blood Pressure Blood Pressure [Right Arm] 62/40 L Blood Pressure Mean Blood Pressure Mean [Right Arm] 47 Pulse Oximetry Oxygen Delivery Method Fraction of Inspired Oxygen Sepsis Recent Fever Within 48 Hours No Sepsis New/Unexplained Change in Mental Status Yes Sepsis Action Taken by Nursing No Action Required End-Tidal CO2 06/05/24 03:00 06/05/24 03:15 06/05/24 03:20 Temperature 33.8 C L Temperature Source Vásquez Cath ( Temp Sensing) Pulse Rate 102 H 103 H Pulse Rate [Apical] 100 H Pulse Rate from SpO2 Sensor 104 H Respiratory Rate 24 24 Blood Pressure 104/51 L 111/55 L Blood Pressure [Right Arm] 110/55 L Blood Pressure Mean 83 73 Blood Pressure Mean [Right Arm] 73 Pulse Oximetry 96 96 95 Oxygen Delivery Method Mechanical Vent Mechanical Vent Mechanical Vent Fraction of Inspired Oxygen Sepsis Recent Fever Within 48 Hours Sepsis New/Unexplained Change in Mental Status Sepsis Action Taken by Nursing End-Tidal CO2 49 35 06/05/24 03:22 06/05/24 03:23 06/05/24 03:30 Temperature 33.8 C L Temperature Source Pulse Rate 107 H 100 H Pulse Rate [Apical] Pulse Rate from SpO2 Sensor 100 H Respiratory Rate 24 24 Blood Pressure 121/53 L Blood Pressure [Right Arm] Blood Pressure Mean 75 Blood Pressure Mean [Right Arm] Pulse Oximetry 96 95 94 Oxygen Delivery Method Mechanical Vent Mechanical Vent Fraction of Inspired Oxygen 80 Sepsis Recent Fever Within 48 Hours Sepsis New/Unexplained Change in Mental Status Sepsis Action Taken by Nursing End-Tidal CO2 50 29 06/05/24 03:45 06/05/24 03:50 06/05/24 04:00 Temperature 34.3 C L Temperature Source Pulse Rate 96 H 94 H Pulse Rate [Apical] Pulse Rate from SpO2 Sensor 96 H 94 H Respiratory Rate 24 25 H Blood Pressure 119/53 L 110/58 L 120/60 Blood Pressure [Right Arm] Blood Pressure Mean 75 68 80 Blood Pressure Mean [Right Arm] Pulse Oximetry 94 90 Oxygen Delivery Method Mechanical Vent Mechanical Vent Fraction of Inspired Oxygen Sepsis Recent Fever Within 48 Hours Sepsis New/Unexplained Change in Mental Status Sepsis Action Taken by Nursing End-Tidal CO2 28 24 06/05/24 04:45 06/05/24 04:57 Temperature 34.1 C L 34.1 C L Temperature Source Pulse Rate 95 H 95 H Pulse Rate [Apical] Pulse Rate from SpO2 Sensor Respiratory Rate 20 21 Blood Pressure 94/52 L 94/52 L Blood Pressure [Right Arm] Blood Pressure Mean 66 66 Blood Pressure Mean [Right Arm] Pulse Oximetry 88 L 87 L Oxygen Delivery Method Mechanical Vent Mechanical Vent Fraction of Inspired Oxygen 80 80 Sepsis Recent Fever Within 48 Hours Sepsis New/Unexplained Change in Mental Status Sepsis Action Taken by Nursing End-Tidal CO2 22 21 Laboratory Data 06/05/24 02:39 06/05/24 02:39 Lab Results 06/05/24 06/05/24 06/05/24 Range/Units 02:39 02:40 03:26 WBC 9.91 (4.8-10.8) K/ul RBC 3.74 L (4.20-5.40) M/uL Hgb 11.1 L (12.0-16.0) g/dl POC Hgb 12.6 12.6 (12.0-16.0) g/dl Hct 37.7 (37.0-47.0) % POC Hct 37 37 (37-47) % MCV 100.8 H (80.0-100.0) fL MCH 29.7 (25.0-34.0) pg MCHC 29.4 L (32.0-36.0) g/dL RDW Std Deviation 60.2 H (36.4-46.3) fL RDW Coeff of Robert 16.3 H (11.5-14.5) % Plt Count 97 L (130-400) K/uL MPV 11.9 (9.4-12.4) fL Immature Gran % (Auto) 3.3 % Neut % (Auto) 68.6 % Lymph % (Auto) 22.8 % Cameron % (Auto) 4.9 % Eos % (Auto) 0.1 % Baso % (Auto) 0.3 % Neut # (Auto) 6.79 H (1.40-6.50) K/uL Lymph # (Auto) 2.26 (1.20-3.40) K/uL Cameron # (Auto) 0.49 (0.11-0.59) K/uL Eos # (Auto) 0.01 (0.00-0.50) K/uL Baso # (Auto) 0.03 (0.00-0.20) K/uL Immature Gran # (Auto) 0.33 H (0.01-0.20) K/uL Absolute Nucleated RBC 0.03 (0.00-0.12) K/uL Nucleated RBC % (auto) 0.3 % Platelet Estimate Decreased L (Normal) Echinocytes 1+ PT 15.0 H (9.0-12.0) Seconds INR 1.4 H (0.9-1.1) POC pH 6.90 L* (7.35-7.45) POC pCO2 98 H (35-46) mmHg POC pO2 92 (80-95) mmHg POC HCO3 19 (19-24) chinmay/L POC Base Excess -14.0 L (-9-1.8) chinmay/L POC ABG O2 Sat 87.0 L (90-95) % POC Sodium 137 137 (135-144) mmol/L Sodium 139 (136-145) mmol/L POC Potassium 4.4 4.8 (3.3-5.0) mmol/L Potassium 4.7 (3.5-5.1) mmol/L POC Chloride 104 (101-112) mmol/L Chloride 104 (98-107) mmol/L Carbon Dioxide 17 L (21-32) mmol/L POC Total CO2 20 L 22 L (24-31) mmol/L Anion Gap 18 H (3-11) POC Anion Gap 18.0 (16-25) mmol/L POC BUN 20 H (7-18) mg/dl BUN 19 (6-23) mg/dl Creatinine 1.02 (0.6-1.2) mg/dl POC Creatinine 1.1 (0.6-1.3) mg/dl Est Cr Clr Drug Dosing 41.1 ml/min eGFR 55.27 BUN/Creatinine Ratio 18.6 (10-20) Glucose 240 H (70-99(Fasting)) mg/dl POC Glucose (other) 224 H (70-99) mg/dl Lactate 12.1 H* (0.4-2.0) mmol/L Calcium 7.6 L (8.6-10.3) mg/dl POC Ioniz Calcium Tomy 1.00 L (1.12-1.32) mmol/l Magnesium 2.3 (1.7-2.4) mg/dl Total Bilirubin 0.4 (0.2-1.0) mg/dl AST 123 H (13-39) U/L ALT 52 (7-52) U/L Alkaline Phosphatase 174 H (34-104) U/L Troponin I High Sens 108.3 H* (0-14) pg/ml B-Natriuretic Peptide 588 H (0-100) pg/ml Total Protein 5.4 L (6.0-8.3) gm/dl Albumin 2.9 L (3.4-5.0) gm/dl Globulin 2.5 (2.5-4.0) gm/dl Albumin/Globulin Ratio 1.2 (0.9-2) Lipase 70 (11-82) U/L Procalcitonin 0.14 (0-0.5) ng/ml TSH 6.326 H (0.300-4.500) uIu/ml Free T4 0.58 L (0.61-1.60) ng/dl Urine Color Yellow Urine Appearance Cloudy A (Clear) Urine pH 8.5 H (4.5-7.5) Ur Specific Warri[place]ine 1.021 (1.000-1.030) Urine Protein 3+ H (Negative) Urine Glucose (UA) Trace H (Negative) Urine Ketones Negative (Negative) Urine Blood 3+ H (Negative) Urine Nitrite Negative (Negative) Urine Bilirubin Negative (Negative) Urine Urobilinogen Negative (Negative) Ur Leukocyte Esterase Negative (Negative) Urine WBC (Auto) 11-20 H (0-5) /hpf Urine RBC (Auto) 11-20 H (0-2) /hpf U Hyaline Cast (Auto) 6-10 H (0-2) /lpf U Epithel Cells (Auto) 3-5 H (0-2) /hpf Urine Bacteria (Auto) 1+ H (None Seen) Stl C. cayetanensis PCR (NotDetected) Stool Rotavirus A PCR (NotDetected) Stl Adenov F 40/41 PCR (NotDetected) Stool Astrovirus (PCR) (NotDetected) Stool Campylobacter PCR (NotDetected) Stl C. diff Tox B Gene (Neg) Stool Cryptosporidium PCR (NotDetected) Stl E.coli Shiga Tox PCR (NotDetected) Stl Enterotoxigenic E PCR (NotDetected) Stool EPEC (PCR) (NotDetected) Stool EAEC (PCR) (NotDetected) Stl E. histolytica PCR (NotDetected) Stool Giardia Lamblia PCR (NotDetected) Stool Salmonella PCR (NotDetected) Stool Sapovirus (PCR) (NotDetected) Stl P. shigelloides PCR (NotDetected) Stl Shigella/EIEC PCR (NotDetected) St Y.enterocolitica PCR (NotDetected) Stool Vibrio (PCR) (NotDetected) Stl Vibrio cholerae PCR (NotDetected) Stl Norovirus GI/GII PCR (NotDetected) Urine Opiates Screen Neg (Neg) Ur Methadone, Qual Neg (Neg) Urine Fentanyl Screen Neg (Neg) Urine Barbiturates Neg (Neg) Ur Phencyclidine (PCP) Neg (Neg) U Amphetamin/Meth Scrn Neg (Neg) MDMA (Ecstasy) Screen Neg (Neg) U Benzodiazepines Scrn Neg (Neg) Ur Cocaine Metabolite Neg (Neg) U Marijuana (THC) Screen Neg (Neg) Adenovirus (PCR) Not Detected (NotDetected) B. pertussis DNA (PCR) Not Detected (NotDetected) B.parapertussis DNA PCR Not Detected (NotDetected) C. pneumoniae DNA (PCR) Not Detected (NotDetected) Coronavirus OC43 (PCR) Not Detected (NotDetected) Coronavirus HKU1 (PCR) Not Detected (NotDetected) Coronavirus 229E (PCR) Not Detected (NotDetected) SARS-CoV-2 (PCR) DETECTED A (NotDetected) Coronavirus NL63 (PCR) Not Detected (NotDetected) Human Metapneumovir PCR Not Detected (NotDetected) Influenza Type A (PCR) Not Detected (NotDetected) Influenza Type B (PCR) Not Detected (NotDetected) M. pneumoniae (PCR) Not Detected (NotDetected) Parainfluenza 1 (PCR) Not Detected (NotDetected) Parainfluenza 2 (PCR) Not Detected (NotDetected) Parainfluenza 3 (PCR) Not Detected (NotDetected) Parainfluenza 4 (PCR) Not Detected (NotDetected) RSV (PCR) Not Detected (NotDetected) Entero/Rhino (PCR) Not Detected (NotDetected) 06/05/24 06/05/24 06/05/24 Range/Units 03:40 04:03 04:37 WBC (4.8-10.8) K/ul RBC (4.20-5.40) M/uL Hgb (12.0-16.0) g/dl POC Hgb 14.3 (12.0-16.0) g/dl Hct (37.0-47.0) % POC Hct 42 (37-47) % MCV (80.0-100.0) fL MCH (25.0-34.0) pg MCHC (32.0-36.0) g/dL RDW Std Deviation (36.4-46.3) fL RDW Coeff of Robert (11.5-14.5) % Plt Count (130-400) K/uL MPV (9.4-12.4) fL Immature Gran % (Auto) % Neut % (Auto) % Lymph % (Auto) % Cameron % (Auto) % Eos % (Auto) % Baso % (Auto) % Neut # (Auto) (1.40-6.50) K/uL Lymph # (Auto) (1.20-3.40) K/uL Cameron # (Auto) (0.11-0.59) K/uL Eos # (Auto) (0.00-0.50) K/uL Baso # (Auto) (0.00-0.20) K/uL Immature Gran # (Auto) (0.01-0.20) K/uL Absolute Nucleated RBC (0.00-0.12) K/uL Nucleated RBC % (auto) % Platelet Estimate (Normal) Echinocytes PT (9.0-12.0) Seconds INR (0.9-1.1) POC pH 7.24 L (7.35-7.45) POC pCO2 47 H (35-46) mmHg POC pO2 75 L (80-95) mmHg POC HCO3 20 (19-24) chinmay/L POC Base Excess -8.0 (-9-1.8) chinmay/L POC ABG O2 Sat 92.0 (90-95) % POC Sodium 136 (135-144) mmol/L Sodium (136-145) mmol/L POC Potassium 5.0 (3.3-5.0) mmol/L Potassium (3.5-5.1) mmol/L POC Chloride (101-112) mmol/L Chloride (98-107) mmol/L Carbon Dioxide (21-32) mmol/L POC Total CO2 21 L (24-31) mmol/L Anion Gap (3-11) POC Anion Gap (16-25) mmol/L POC BUN (7-18) mg/dl BUN (6-23) mg/dl Creatinine (0.6-1.2) mg/dl POC Creatinine (0.6-1.3) mg/dl Est Cr Clr Drug Dosing ml/min eGFR BUN/Creatinine Ratio (10-20) Glucose (70-99(Fasting)) mg/dl POC Glucose (other) (70-99) mg/dl Lactate 9.8 H* (0.4-2.0) mmol/L Calcium (8.6-10.3) mg/dl POC Ioniz Calcium Tomy (1.12-1.32) mmol/l Magnesium (1.7-2.4) mg/dl Total Bilirubin (0.2-1.0) mg/dl AST (13-39) U/L ALT (7-52) U/L Alkaline Phosphatase (34-104) U/L Troponin I High Sens (0-14) pg/ml B-Natriuretic Peptide (0-100) pg/ml Total Protein (6.0-8.3) gm/dl Albumin (3.4-5.0) gm/dl Globulin (2.5-4.0) gm/dl Albumin/Globulin Ratio (0.9-2) Lipase (11-82) U/L Procalcitonin (0-0.5) ng/ml TSH (0.300-4.500) uIu/ml Free T4 (0.61-1.60) ng/dl Urine Color Urine Appearance (Clear) Urine pH (4.5-7.5) Ur Specific Warri[place]ine (1.000-1.030) Urine Protein (Negative) Urine Glucose (UA) (Negative) Urine Ketones (Negative) Urine Blood (Negative) Urine Nitrite (Negative) Urine Bilirubin (Negative) Urine Urobilinogen (Negative) Ur Leukocyte Esterase (Negative) Urine WBC (Auto) (0-5) /hpf Urine RBC (Auto) (0-2) /hpf U Hyaline Cast (Auto) (0-2) /lpf U Epithel Cells (Auto) (0-2) /hpf Urine Bacteria (Auto) (None Seen) Stl C. cayetanensis PCR Not Detected (NotDetected) Stool Rotavirus A PCR Not Detected (NotDetected) Stl Adenov F 40/41 PCR Not Detected (NotDetected) Stool Astrovirus (PCR) Not Detected (NotDetected) Stool Campylobacter PCR Not Detected (NotDetected) Stl C. diff Tox B Gene Negative Cdiff Gene (Neg) Stool Cryptosporidium PCR Not Detected (NotDetected) Stl E.coli Shiga Tox PCR Not Detected (NotDetected) Stl Enterotoxigenic E PCR Not Detected (NotDetected) Stool EPEC (PCR) Not Detected (NotDetected) Stool EAEC (PCR) DETECTED A* (NotDetected) Stl E. histolytica PCR Not Detected (NotDetected) Stool Giardia Lamblia PCR Not Detected (NotDetected) Stool Salmonella PCR Not Detected (NotDetected) Stool Sapovirus (PCR) Not Detected (NotDetected) Stl P. shigelloides PCR Not Detected (NotDetected) Stl Shigella/EIEC PCR Not Detected (NotDetected) St Y.enterocolitica PCR Not Detected (NotDetected) Stool Vibrio (PCR) Not Detected (NotDetected) Stl Vibrio cholerae PCR Not Detected (NotDetected) Stl Norovirus GI/GII PCR Not Detected (NotDetected) Urine Opiates Screen (Neg) Ur Methadone, Qual (Neg) Urine Fentanyl Screen (Neg) Urine Barbiturates (Neg) Ur Phencyclidine (PCP) (Neg) U Amphetamin/Meth Scrn (Neg) MDMA (Ecstasy) Screen (Neg) U Benzodiazepines Scrn (Neg) Ur Cocaine Metabolite (Neg) U Marijuana (THC) Screen (Neg) Adenovirus (PCR) (NotDetected) B. pertussis DNA (PCR) (NotDetected) B.parapertussis DNA PCR (NotDetected) C. pneumoniae DNA (PCR) (NotDetected) Coronavirus OC43 (PCR) (NotDetected) Coronavirus HKU1 (PCR) (NotDetected) Coronavirus 229E (PCR) (NotDetected) SARS-CoV-2 (PCR) (NotDetected) Coronavirus NL63 (PCR) (NotDetected) Human Metapneumovir PCR (NotDetected) Influenza Type A (PCR) (NotDetected) Influenza Type B (PCR) (NotDetected) M. pneumoniae (PCR) (NotDetected) Parainfluenza 1 (PCR) (NotDetected) Parainfluenza 2 (PCR) (NotDetected) Parainfluenza 3 (PCR) (NotDetected) Parainfluenza 4 (PCR) (NotDetected) RSV (PCR) (NotDetected) Entero/Rhino (PCR) (NotDetected) Administered Medications Albuterol (Albuterol 0.083% Nebu Soln 3 Ml Vial) 2.5 mg NEB Q6R [facility]; Protocol Stop: 07/05/24 05:59 Last Admin: 06/05/24 06:01 Dose: Not Given Documented By: NICOLE Budesonide (Budesonide 0.25 Mg/2 Ml Vial (Pulmicort)) 0.25 mg NEB BIDR AMELIA Stop: 07/05/24 06:59 Last Admin: 06/05/24 06:01 Dose: 0.25 mg Documented By: NICOLE Sodium Chloride (Nss) 1,000 mls @ 125 mls/hr IV .Q8H [facility] Stop: 06/06/24 02:44 Last Admin: 06/05/24 03:30 Dose: 125 mls/hr Documented By: AGUSTINA Norepinephrine Bitartrate (Levophed/D5w) 4 mg in 250 mls @ 24.3 mls/hr IV .[id number] [facility]; Protocol Stop: 07/05/24 02:44 Last Titration: 06/05/24 05:08 Dose: 0.09 mcg/kg/min, 24.3 mls/hr Documented By: PENNY Co-signed By: IDD Titration: 06/05/24 04:21 Dose: 0.05 mcg/kg/min, 13.5 mls/hr Documented By: JT Co-signed By: MAKSIMW Titration: 06/05/24 02:45 Dose: 0.07 mcg/kg/min, 18.9 mls/hr Documented By: AGUSTINA Co-signed By: PENNY Admin: 06/05/24 02:37 Dose: 0.05 mcg/kg/min, 13.5 mls/hr Documented By: AGUSTINA Co-signed By: LAWRENCE Discontinued Medications Albuterol (Albut/Ipratrop 3mg/0.5mg Neb 3 Ml Vial) 3 ml NEB NOW STA; Protocol Stop: 06/05/24 05:26 Last Admin: 06/05/24 06:01 Dose: 3 ml Documented By: NIOCLE Dexamethasone Sodium Phosphate (DexamethasonePf 10 Mg/Ml Vial) 6 mg IV NOW ONE Stop: 06/05/24 05:00 Last Admin: 06/05/24 05:36 Dose: 6 mg Documented By: PENNY Calcium Chloride 1,000 mg/ (Dextrose) 60 mls @ 240 mls/hr IV NOW STA Stop: 06/05/24 02:51 Last Admin: 06/05/24 03:26 Dose: Not Given Documented By: AGUSTINA Cefepime HCl (Maxipime 2000mg) 2,000 mg in 20 mls @ 5 mls/min IV NOW STA; Protocol Stop: 06/05/24 03:20 Last Admin: 06/05/24 03:32 Dose: 5 mls/min Documented By: AGUSTINA Vancomycin HCl 1,500 mg/ (Sodium Chloride) 530 mls @ 200 mls/hr IV NOW ONE Stop: 06/05/24 05:55 Last Admin: 06/05/24 04:37 Dose: 200 mls/hr Documented By: PENNY Calcium Chloride 1,000 mg/ (Dextrose) 60 mls @ 240 mls/hr IV NOW STA Stop: 06/05/24 04:23 Last Infusion: 06/05/24 04:12 Dose: Infused Documented By: Admin: 06/05/24 02:40 Dose: 240 mls/hr Documented By: AGUSTINA Sodium Chloride (Nss) 500 mls @ 999 mls/hr IV .Q31M ONE Stop: 06/05/24 05:55 Last Infusion: 06/05/24 06:07 Dose: Infused Documented By: Admin: 06/05/24 05:37 Dose: 999 mls/hr Documented By: PENNY Ioversol (Optiray 320 125ml) 120 ml IV ONCE ONE Stop: 06/05/24 02:51 Last Admin: 06/05/24 02:51 Dose: 120 ml Documented By: LAURA Norepinephrine Bitartrate (Norepinephrine/D5w 4 Mg/250 Ml) Confirm Administered Dose 4 mg IV .STK-MED ONE Stop: 06/05/24 02:23 Last Admin: 06/05/24 02:52 Dose: Not Given Documented By: AGUSTINA Propofol (Propofol Iv Emulsion 10 Mg/Ml 100 Ml Vial) Confirm Administered Dose 1,000 mg IV .STK-MED ONE Stop: 06/05/24 02:08 Last Admin: 06/05/24 03:34 Dose: Not Given Documented By: AGUSTINA Sodium Bicarbonate (Sodium Bicarb 8.4% Inj 50 Meq/50 Ml Syr) 50 meq IV NOW STA Stop: 06/05/24 02:38 Last Admin: 06/05/24 02:39 Dose: 50 meq Documented By: AGUSTINA Imaging Data Radiologist's Impression: Abdomen/Pelvis CT 06/05/24 02:34 EXAM: CT abd pelvis IV con only CLINICAL HISTORY: POST CARDIAC ARREST ASSESMENT , 120 ML OPTIRAY 320 TECHNIQUE: Contiguous axial images were obtained from the level of the diaphragm to the pubic symphysis without and with intravenous contrast. Coronal and sagittal reconstructions were likewise performed and indicated to increase the sensitivity for detecting clinically relevant pathology. If IV contrast material had not been administered, the likelihood of detecting abnormalities relevant to the patient's condition would have been substantially decreased. CT scan was performed according to ALARA (as low as reasonable achievable). COMPARISON: Prior CT abdomen-pelvis dated July 13, 2023. FINDINGS: The visualized lung bases show left pleural effusion measuring up to 5 cm in thickness with underlying left lung collapse-consolidation. Right lower lobe shows collapse with internal calcification areas. Emphysematous changes noted in visualized right lung parenchyma. The liver is enlarged measuring 16.2 cm in craniocaudal span with diffuse hypoattenuation suggestive of hepatic steatosis. No focal liver lesions are seen. There is no intra or extrahepatic biliary ductal dilatation. The gallbladder shows few calculi, largest measuring 1.6 cm. The spleen, pancreas, and adrenal glands are unremarkable. The kidneys show few subcentimetric simple cysts bilaterally. There is no hydronephrosis or perinephric fat stranding. The ureters are normal in caliber and no ureteral calculi are seen. The bladder is normal in contour. No focal or diffuse bowel wall thickening or evidence of bowel obstruction is identified. The appendix is visualized in the right lower quadrant and appears within normal limits. No adenopathy or fluid collections are seen. The aorta shows few atherocalcific plaques. The uterus shows an ill-defined hypoenhancing lesion measuring 2 x 1.3 cm at posterior myometrium, possibly representing a fibroid. Ultrasound correlation is recommended. Degenerative changes noted in the visualized spine. Mildly displaced fractures of the anterior ends of 5th and 6th ribs on right side are noted. IMPRESSION: 1. Stable hepatomegaly with diffuse hepatic steatosis. 2. Uncomplicated cholelithiasis, largest calculus measuring 1.6 cm - unchanged. 3. Left pleural effusion with underlying collapse-consolidation; right lower lobe collapse with calcification. There is increased collapse/consolidation in left lower lobe and new appearance collapse/consolidation in right lower lobe as compared to prior study. 4. Posterior uterine myometrial lesion, possibly fibroid - ultrasound correlation recommended. It was not well appreciated on previous study. 5. Stable bilateral simple renal cortical cysts (Bosniak grade 1). 6. Mildly displaced fractures of the anterior ends of 5th and 6th ribs on right side - new finding. 7. No other significant interval changes as compared to prior study. Electronically signed by Edmund Lopez 06-05-2024 04:[address] 06/05/24 02:34 EXAM: CT cervical spine wo con CLINICAL HISTORY: POST CARDIAC ARREST ASSESSMENT TECHNIQUE: A CT scan of the cervical spine was performed without the administration of intravenous contrast. Contiguous axial images were obtained from the skull base to the upper thoracic spine. Coronal and sagittal reformatted images were also reviewed. One of the following dose-reduction techniques was utilized for this exam. Automated exposure control, adjustment of the mA and/or kV according to patient size, and use of iterative reconstruction. (CTDI: 36.55 mGy, DLP: 2993.41 mGy*cm) COMPARISON: MR on 09/25/2023. FINDINGS: No evidence of acute fracture or dislocation. No signs of lytic or sclerotic lesions. Severe spondylotic changes in the cervical spine with multilevel marginal bony hypertrophies, anterior vertebra bridging, facet arthropathic changes, endplate changes, and reduced to lost intervertebral disc spaces. Multilevel disc bony hypertrophy complexes in combination with facet arthropathic changes exert effects on the spinal canal and neural foraminal. Atlantoaxial degenerative changes. Soft tissue calcification is seen in the posterior aspect of the neck IMPRESSION: 1. No interval change in comparison with MR on 09/25/2023. No evidence of acute fracture or dislocation. 2. Severe spondylotic changes in the cervical spine. Electronically signed by Gerardo Amanda 06-05-2024 03:56 AM Chest CTA 06/05/24 02:34 EXAM: CT angio chest PE protocol CLINICAL HISTORY: POST CARDIAC ARREST ASSESSMENT, TECHNIQUE: CT angiography of the chest was performed with and without intravenous contrast with the following protocol: axial images with, reconstructed coronal and sagittal images. Non-contrast images were initially acquired, followed by contrast-enhanced images in arterial and venous phases. Intravenous contrast (120 ml Optiray 320) was administered using automated injection techniques. Bolus tracking was employed to optimize arterial phase imaging. One of these 3D techniques was utilized: Maximum Intensity Pixel (MIP), 3D Reconstructed Images, Volume Rendered Images, Surface Shaded Rendering. One of the following dose reduction techniques was utilized for this exam: Automated exposure control, adjustment of the mA and/or kV according to patient size, and use of iterative reconstruction. (CTDI: 36.55mGy, DLP: 2993.41 mGy*cm) COMPARISON: XR chest 04/25/2024. CT chest 12/20/2023 FINDINGS: Aorta and Great Vessels: Atherosclerotic changes of the thoracic aorta and major branches. Unchanged. Ascending Aorta: Normal in caliber, no aneurysm or dissection. Aortic Arch: Normal in caliber, no aneurysm or dissection. Descending Aorta: Normal in caliber, no aneurysm or dissection. Pulmonary Arteries: The main pulmonary artery and its branches are patent. No evidence of pulmonary embolism or significant stenosis. Heart: Cardiac Chambers: Normal in size. No evidence of cardiomegaly. Pericardium: No pericardial effusion or thickening. Lungs and Pleura: Moderate left-sided pleural effusion measured about 6 cm from the pleural surface. Interval increase. Consolidation with air bronchogram involving posterior segments of both lower lobes. New finding. Few paraseptal emphysematous bullae noted, mainly on the right side. Unchanged. A tiny nonspecific pulmonary nodule (3 mm) seen in upper lobe of right lung. Unchanged. Few tiny bilateral subpleural nodules. Unchanged. No right sided pleural effusion. Mediastinum: ET tube is noted in situ. New finding. Multiple prominent mediastinal lymph nodes, the largest measured about 9 mm in short axis, were seen in the subcarinal group. Normal appearance of the trachea and central bronchi. Hilar Structures: Hilar structures are normal without enlargement. Chest Wall: No mass lesions or abnormalities in the chest wall. Thyroid gland: A well-defined nodule measured about 19 x 16 x 13 mm is seen in the left thyroid lobe. Showed heterogeneous enhancement and spots of calcification. Unchanged. Bones and Soft Tissues: Bilateral rib fractures involving the 3rd-5th ribs on the right side and the 4th-5th ribs on the left side. New finding. Thoracic spondylosis. Unchanged. Soft tissues are unremarkable. IMPRESSION: 1. No evidence of pulmonary embolism. 2. Bilateral rib fractures: Right: 3rd-5th ribs. Left: 4th-5th ribs. New finding. 3. Moderate left-sided pleural effusion. Passive atelectasis changes. Interval increase. 4. Consolidation with air bronchogram in posterior segments of both lower lobes. New finding. Could be related to aspiration/evolving inflammatory or infectious processes. Need clinical correlation. 5. The left thyroid nodule. Unchanged. Need ultrasound correlation. 6. Endotracheal (ET) tube in situ. New finding. 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 Shaffer was informed regarding the presence of Significant Medical Findings on this report. Electronically signed by Gerardo Amanda 06-05-2024 04:44 AM Chest X-Ray 06/05/24 02:34 EXAM: XR chest 1V portable CLINICAL HISTORY: INTUBATION ONEYDA DAI DIDN'T WANT ANOTHER IMAGE, XRAY USED FOR TUBE CHECK TECHNIQUE: An X-ray image of the chest is obtained in AP projection. COMPARISON: CR 04/25/2024 was reviewed. FINDINGS: ET tube is seen at a distance of about 6.4 cm from the isaias. (slightly high in position, about midway within the tracheal column) IMPRESSION: 1. ET tube is seen at a distance of about 6.4 cm from the isaias. (slightly high, about midway within the tracheal column) 2. Suggested improvement regarding the degree of previously visualized left pleural effusion. Electronically signed by Gerardo Amanda 06-05-2024 03:[address] 06/05/24 02:34 EXAM: CT head/brain wo con CLINICAL HISTORY: POST CARDIAC ARREST ASSESSMENT. TECHNIQUE: An axial non-contrast CT scan of the brain was performed from the skull base to the high parietal region. One of the following dose reduction techniques was utilized for this exam: Automated exposure control, adjustment of the mA and/or kV according to patient size, and use of iterative reconstruction. CTDI: 36.55 mGy, DLP: 2993.41 mGy*cm COMPARISON: None. FINDINGS: No definite calvarium fractures. A hemorrhage with a thickness of 1.4 cm in the galeal tissue in the left frontal region. There are tiny ill-defined hypodense areas noted in the subcortical white matter and the periventricular region bilaterally, suggestive of moderate microvascular ischemic changes. No established territorial infarction was identified. No evidence of intracerebral hemorrhage. No extra axial hematoma. No other focal parenchymal abnormalities are demonstrated. Pratt-white matter differentiation is maintained. No midline shifts or deformity. Normal configuration of the cerebral ventricles. Normal CT appearance of the posterior fossa structures namely the cerebellar hemispheres, brainstem, and cerebellar peduncles. The cerebello-pontine angles are clear. The pituitary gland, the pineal gland, and the optic chiasm are unremarkable. IMPRESSION: 1. No intracranial acute injury was noted. 2. A hemorrhage with a thickness of 1.4 cm in the galeal tissue in the left frontal region. 3. Moderate microvascular ischemic changes. Electronically signed by Gerardo Amanda 06-05-2024 03:48 AM Chest X-Ray 06/05/24 03:30 EXAM: XR chest 1V portable CLINICAL HISTORY: OG TUBE PLACEMENT TECHNIQUE: An X-ray image of the chest is obtained in AP projection. COMPARISON: comparison with the previous study dated 06/05/2024 and 04/25/2024 FINDINGS: Pulmonary Parenchyma: ET tube is seen at a distance of about 5.5 cm from the isaias. NGT noted coursing below the diaphragm, tip not included in the field of view. Blunting of left costophrenic angle with silhouetting of the left hemidiaphragm suggesting left-sided pleural effusion with subsegmental atelectasis. Right lower lung zone air space filling opacity with silhouetting of the right hemidiaphragm and blunting of the left costophrenic angle which may be due to aspiration or superadded infectious process for clinical correlation. Veiling opacity of both lung apices ?? positional Heart and Mediastinum: Heart size can not be assessed in AP projection. No mediastinal widening or masses. No hilar or mediastinal lymphadenopathy. 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 Soft Tissues: Soft tissues overlying the chest wall are unremarkable. IMPRESSION: 1. ET tube is seen at a distance of about 5.5 cm from the isaias. (slightly downwards in comparison with the previous study which was 6.4 cm from the isaias) 2. Left lower lung zone opacity silhouetting left hemidiaphragm with blunting of the left costophrenic angle suggesting left-sided pleural effusion with subsegmental lung collapse. (interval increase in comparison with the previous study) 3. Right lower lung zone opacity silhouetting right hemidiaphragm with blunting of the right costophrenic angle which may suggest aspiration or superadded infectious process for clinical correlation. (new finding) Electronically signed by Gerardo Amanda 06-05-2024 04:55 AM Discharge Plan Visit Data Chief Complaint: Cardiac Arrest/CPR Stated Complaint: POST CARDIAC ARREST ED Provider: Bee Shaffer Discharge Problem: Cardiac arrest, Hypotension, COVID-19, Acidosis, lactic, Multiple rib fractures, Elevated troponin, Diarrhea Patient Disposition: Admitted As Inpatient Discharge Instructions Interventions: ED Discharge Assessment Last Done: 06/05/24 05:30
--- NOTE | 2024-06-05 04:45 | CT Scan Report ---
EXAM: CT angio chest PE protocol CLINICAL HISTORY: POST CARDIAC ARREST ASSESSMENT, TECHNIQUE: CT angiography of the chest was performed with and without intravenous contrast with the following protocol: axial images with, reconstructed coronal and sagittal images. Non-contrast images were initially acquired, followed by contrast-enhanced images in arterial and venous phases. Intravenous contrast (120 ml Optiray 320) was administered using automated injection techniques. Bolus tracking was employed to optimize arterial phase imaging. One of these 3D techniques was utilized: Maximum Intensity Pixel (MIP), 3D Reconstructed Images, Volume Rendered Images, Surface Shaded Rendering. One of the following dose reduction techniques was utilized for this exam: Automated exposure control, adjustment of the mA and/or kV according to patient size, and use of iterative reconstruction. (CTDI: 36.55mGy, DLP: 2993.41 mGy*cm) COMPARISON: XR chest 04/25/2024. CT chest 12/20/2023 FINDINGS: Aorta and Great Vessels: Atherosclerotic changes of the thoracic aorta and major branches. Unchanged. Ascending Aorta: Normal in caliber, no aneurysm or dissection. Aortic Arch: Normal in caliber, no aneurysm or dissection. Descending Aorta: Normal in caliber, no aneurysm or dissection. Pulmonary Arteries: The main pulmonary artery and its branches are patent. No evidence of pulmonary embolism or significant stenosis. Heart: Cardiac Chambers: Normal in size. No evidence of cardiomegaly. Pericardium: No pericardial effusion or thickening. Lungs and Pleura: Moderate left-sided pleural effusion measured about 6 cm from the pleural surface. Interval increase. Consolidation with air bronchogram involving posterior segments of both lower lobes. New finding. Few paraseptal emphysematous bullae noted, mainly on the right side. Unchanged. A tiny nonspecific pulmonary nodule (3 mm) seen in upper lobe of right lung. Unchanged. Few tiny bilateral subpleural nodules. Unchanged. No right sided pleural effusion. Mediastinum: ET tube is noted in situ. New finding. Multiple prominent mediastinal lymph nodes, the largest measured about 9 mm in short axis, were seen in the subcarinal group. Normal appearance of the trachea and central bronchi. Hilar Structures: Hilar structures are normal without enlargement. Chest Wall: No mass lesions or abnormalities in the chest wall. Thyroid gland: A well-defined nodule measured about 19 x 16 x 13 mm is seen in the left thyroid lobe. Showed heterogeneous enhancement and spots of calcification. Unchanged. Bones and Soft Tissues: Bilateral rib fractures involving the 3rd-5th ribs on the right side and the 4th-5th ribs on the left side. New finding. Thoracic spondylosis. Unchanged. Soft tissues are unremarkable. IMPRESSION: 1. No evidence of pulmonary embolism. 2. Bilateral rib fractures: Right: 3rd-5th ribs. Left: 4th-5th ribs. New finding. 3. Moderate left-sided pleural effusion. Passive atelectasis changes. Interval increase. 4. Consolidation with air bronchogram in posterior segments of both lower lobes. New finding. Could be related to aspiration/evolving inflammatory or infectious processes. Need clinical correlation. 5. The left thyroid nodule. Unchanged. Need ultrasound correlation. 6. Endotracheal (ET) tube in situ. New finding. [facility]'s ER was called at [phone] at 3:36 AM LABORATORY ASST, 06/05/2024, and Dr. Shaffer was informed regarding the presence of Significant Medical Findings on this report. Electronically signed by Gerardo Amanda 06-05-2024 04:44 AM
--- NOTE | 2024-06-05 04:53 | CT Scan Report ---
EXAM: CT abd pelvis IV con only CLINICAL HISTORY: POST CARDIAC ARREST ASSESMENT , 120 ML OPTIRAY 320 TECHNIQUE: Contiguous axial images were obtained from the level of the diaphragm to the pubic symphysis without and with intravenous contrast. Coronal and sagittal reconstructions were likewise performed and indicated to increase the sensitivity for detecting clinically relevant pathology. If IV contrast material had not been administered, the likelihood of detecting abnormalities relevant to the patient's condition would have been substantially decreased. CT scan was performed according to ALARA (as low as reasonable achievable). COMPARISON: Prior CT abdomen-pelvis dated July 13, 2023. FINDINGS: The visualized lung bases show left pleural effusion measuring up to 5 cm in thickness with underlying left lung collapse-consolidation. Right lower lobe shows collapse with internal calcification areas. Emphysematous changes noted in visualized right lung parenchyma. The liver is enlarged measuring 16.2 cm in craniocaudal span with diffuse hypoattenuation suggestive of hepatic steatosis. No focal liver lesions are seen. There is no intra or extrahepatic biliary ductal dilatation. The gallbladder shows few calculi, largest measuring 1.6 cm. The spleen, pancreas, and adrenal glands are unremarkable. The kidneys show few subcentimetric simple cysts bilaterally. There is no hydronephrosis or perinephric fat stranding. The ureters are normal in caliber and no ureteral calculi are seen. The bladder is normal in contour. No focal or diffuse bowel wall thickening or evidence of bowel obstruction is identified. The appendix is visualized in the right lower quadrant and appears within normal limits. No adenopathy or fluid collections are seen. The aorta shows few atherocalcific plaques. The uterus shows an ill-defined hypoenhancing lesion measuring 2 x 1.3 cm at posterior myometrium, possibly representing a fibroid. Ultrasound correlation is recommended. Degenerative changes noted in the visualized spine. Mildly displaced fractures of the anterior ends of 5th and 6th ribs on right side are noted. IMPRESSION: 1. Stable hepatomegaly with diffuse hepatic steatosis. 2. Uncomplicated cholelithiasis, largest calculus measuring 1.6 cm - unchanged. 3. Left pleural effusion with underlying collapse-consolidation; right lower lobe collapse with calcification. There is increased collapse/consolidation in left lower lobe and new appearance collapse/consolidation in right lower lobe as compared to prior study. 4. Posterior uterine myometrial lesion, possibly fibroid - ultrasound correlation recommended. It was not well appreciated on previous study. 5. Stable bilateral simple renal cortical cysts (Bosniak grade 1). 6. Mildly displaced fractures of the anterior ends of 5th and 6th ribs on right side - new finding. 7. No other significant interval changes as compared to prior study. Electronically signed by Edmund Lopez 06-05-2024 04:53 AM
--- NOTE | 2024-06-05 04:55 | XRay Report ---
EXAM: XR chest 1V portable CLINICAL HISTORY: OG TUBE PLACEMENT TECHNIQUE: An X-ray image of the chest is obtained in AP projection. COMPARISON: comparison with the previous study dated 06/05/2024 and 04/25/2024 FINDINGS: Pulmonary Parenchyma: ET tube is seen at a distance of about 5.5 cm from the isaias. NGT noted coursing below the diaphragm, tip not included in the field of view. Blunting of left costophrenic angle with silhouetting of the left hemidiaphragm suggesting left-sided pleural effusion with subsegmental atelectasis. Right lower lung zone air space filling opacity with silhouetting of the right hemidiaphragm and blunting of the left costophrenic angle which may be due to aspiration or superadded infectious process for clinical correlation. Veiling opacity of both lung apices ?? positional Heart and Mediastinum: Heart size can not be assessed in AP projection. No mediastinal widening or masses. No hilar or mediastinal lymphadenopathy. 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 Soft Tissues: Soft tissues overlying the chest wall are unremarkable. IMPRESSION: 1. ET tube is seen at a distance of about 5.5 cm from the isaias. (slightly downwards in comparison with the previous study which was 6.4 cm from the isaias) 2. Left lower lung zone opacity silhouetting left hemidiaphragm with blunting of the left costophrenic angle suggesting left-sided pleural effusion with subsegmental lung collapse. (interval increase in comparison with the previous study) 3. Right lower lung zone opacity silhouetting right hemidiaphragm with blunting of the right costophrenic angle which may suggest aspiration or superadded infectious process for clinical correlation. (new finding) Electronically signed by Gerardo Amanda 06-05-2024 04:55 AM
--- NOTE | 2024-06-05 05:09 | History & Physical Report ---
Date of Service June 05, 2024 Assessment & Plan (1) Admitted to intensive care unit: (2) Cardiac arrest: (3) Acidosis, lactic: (4) COVID-19: (5) Multifocal pneumonia: (6) Diabetes mellitus, type 2: Plan S/p cardiac arrest with ROSC/admitted to intensive care unit- Continue Levophed, IV fluid support, sodium HCO3, and other meds as begun in the ED Multifocal pneumonia/likely competent of aspiration/COVID-19 infection/intubated in the field- Dexamethasone 6 mg IV every morning Remdesivir IV per protocol Vancomycin IV per pharmacokinetic monitoring Cefepime 2 g IV every 12 hours Azithromycin 500 mg IV daily DuoNebs every 2 hours as needed Follow sputum Gram stain and culture Consult facilities flight check pilot for ongoing ventilator management and other adjustments Lactic acidosis- Lactate initially 12.1 with follow-up pending Serial CBC with differential, chemistry profile, magnesium level and lactate History of Present Illness Chief Complaint: The patient brought to the emergency department via EMS after cardiac arrest in the field with ROSC. The patient reportedly was found by family in the bathroom, initially was somewhat responsive, but then became unresponsive and/Radha. EMS was called, and heart rate was reportedly in the 30s and pulse oxygenation was in the 80s. Pulses were lost, breathing ceased, and patient's was then intubated given 3 doses of epinephrine and ROSC. The patient did lose pressure en route to the hospital, he received several doses of IV pressors to maintain pressure. Upon arrival to the emergency department, patient was placed on IV pressors, sent for stat CT head, abdomen and pelvis and chest, and emergent labs. Primary Care Provider: Sugey Hennessy MD The patient is a 79-year-old female with past medical history including cervical spine osteomyelitis, cervical spine discitis, multifocal pneumonia, diabetes mellitus type 2, COPD, hypertension, SNHL bilaterally, restrictive lung disease, PAD, hypercholesterolemia, endometrial mass, CAD, history of AK, dysphagia and GERD. She presents to the emergency department as noted above and state of septic shock and postcardiac arrest with ROSC. Upon stabilization, [facility], who will admit the patient to the ICU for ongoing treatment Allergies Allergy/AdvReac Type Severity Reaction Status Date / Time amoxicillin Allergy Intermediate Rash, itchy Verified 04/23/24 08:52 strawberry Allergy Intermediate Rash Verified 04/23/24 08:52 nickel Allergy Mild Itchy Verified 04/23/24 08:52 metformin AdvReac Intermediate Diarrhea Verified 04/23/24 08:52 Home Medications Medication Instructions Recorded Confirmed Type aspirin 81 mg tablet,delayed 81 mg PO HS 03/07/18 04/23/24 History release vitamins A,C,V-fvvk-hjyurz 2,148 2 tab PO BID 03/07/18 04/23/24 History mcg-113 mg-45 mg-17.4 mg tablet (PreserVision AREDS) acetaminophen 500 mg tablet 1,000 mg PO UD PRN Fever Or Pain 01/17/19 04/23/24 History Flutter Valve #1 ea 04/04/22 04/23/24 Rx ibuprofen 200 mg tablet 200 mg PO Q6H PRN 06/19/23 04/23/24 History rosuvastatin 20 mg tablet (Crestor) 20 mg PO DAILY #90 tabs 07/10/23 04/23/24 Rx Flutter Valve #1 ea 07/17/23 04/23/24 Rx sodium chloride 7 % for 1 inh inhalation BID #240 mL 07/17/23 04/23/24 Rx nebulization CPAP Machine #1 ea 11/30/23 04/23/24 Rx albuterol sulfate 90 mcg/actuation 2 puff inhalation Q6H PRN 11/30/23 04/23/24 Rx aerosol inhaler (Ventolin HFA) shortness of breath or wheezing #18 grams fluticasone fur. 100 mcg-umeclid 1 inh inhalation DAILY #60 ea 11/30/23 04/23/24 Rx 62.5 mcg-vilant 25 mcg inhalat.powder (Trelegy Ellipta) ipratropium 0.5 mg-albuterol 3 mg 3 ml inhalation Q8H PRN shortness 11/30/23 04/23/24 Rx (2.5 mg base)/3 mL nebulization of breath or wheezing #180 mL soln nitroglycerin 0.4 mg sublingual 0.4 mg sublingual UD PRN chest 01/19/24 04/23/24 Rx tablet pain #30 tabs hydrocortisone 2.5 % topical cream 1 applic IN BID PRN hemorrhoids 2 02/13/24 04/23/24 Rx with perineal applicator weeks #30 grams citalopram 20 mg tablet (Celexa) 20 mg PO DAILY #90 tabs 03/06/24 04/23/24 Rx furosemide 40 mg tablet 40 mg PO QAM #7 tabs 04/26/24 Rx cefuroxime axetil 500 mg tablet 500 mg PO Q12H 10 days #20 tabs 05/02/24 Rx losartan 25 mg tablet 25 mg PO QAM #90 tabs 05/29/24 Rx metoprolol tartrate 100 mg tablet 100 mg PO BID #180 tabs 05/29/24 Rx Past Med/Surg History Problem List (Updated 06/05/24 @ 05:18 by Tk Cheng MD) Admitted to intensive care unit Acidosis, lactic (Acute) COVID-19 (Acute) Hypotension (Acute) Cardiac arrest (Acute) Abnormal ultrasound of uterus Osteoarthritis of hips, bilateral Abnormal chest CT Unintentional weight loss Osteomyelitis of cervical spine Discitis of cervical region Multifocal pneumonia Diabetes mellitus, type 2 Diet controlled, no meds Encounter for pre-operative examination COPD (chronic obstructive pulmonary disease) HTN (hypertension) 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 (Acute) Sensorineural hearing loss (SNHL) of both ears (Acute) Restrictive lung disease (Acute) Postmenopausal bleeding (Acute) PAD (peripheral artery disease) (Acute) Obstructive sleep apnea of adult (Acute) Obesity, Class II, BMI 35-39.9 (Acute) Microalbuminuria (Acute) Lumbar canal stenosis (Acute) Hypercholesterolemia (Chronic) Hiatal hernia (Acute) Excessive sweating (Acute) Endometrial mass (Acute) Depression (Acute) Current tobacco use (Acute) Colon polyps (Acute) CAD (coronary artery disease) (Chronic) Atherosclerotic heart disease of [place] coronary artery with other forms of angina pectoris (Acute) Asthma (Acute) Anxiety (Acute) Multiple pulmonary nodules determined by computed tomography of lung Allergic rhinitis Urinary incontinence History of colon polyps Chronic bronchitis Emma laryngitis Dysphonia Dysphonia plicae ventricularis History of myocardial infarct at age greater than 60 years Traumatic wound dehiscence Polyp of vocal cord and larynx Dysphagia Chronic issues x years, unchanged GERD (gastroesophageal reflux disease) Medical History Carotid artery disease Edema of both lower extremities Chronic respiratory failure with hypoxia CAD (coronary artery disease) Macular degeneration Pulmonary nodules PAD (peripheral artery disease) Thyroid nodule Incisional hernia Osteoarthritis Hiatal hernia Hearing deficit Myocardial Infarction Hyperlipidemia Hypertension Sleep apnea Chronic obstructive pulmonary disease Asthma Surgical History History of surgery History of right cataract surgery History of cataract surgery History of esophagogastroduodenoscopy (EGD) History of colonoscopy History of breast lump removal History of dilation and curettage Status post left knee replacement History of carpal tunnel release History of tooth extraction History of surgery History of bilateral tubal ligation Hx of foot surgery Status post biopsy of thyroid gland History of cardiac cath Family History Brother Myocardial infarction Lung cancer Mother Skin cancer Arthritis History of gallbladder disease Myocardial infarction Pulmonary embolism Father Coronary heart disease Acute myocardial infarction Myocardial infarction Grandmother (Paternal) Skin cancer Brother Leukemia Myocardial infarction History of coronary artery bypass graft Grandfather (Paternal) Myocardial infarction Son Diabetes Other No family history of adverse response to anesthesia No family history of bleeding disorder Denies family history of Ovarian cancer Prostate cancer Breast cancer Colorectal cancer Social History Smoking Status: Unknown if ever smoked Tobacco Type: Cigarettes Age Started Using Tobacco: 15; packs per day: 1; Cigarettes Per Day: 1 PPD x 50+ years (intermittent); Second Hand Exposure: No; Do You Dip or Chew Tobacco: No; Hx Alcohol Use: No Hx Substance Use: No Preferred Language: Cymro Communication Ability: Effective Visual Impairment: Limited Hearing Ability: Hard of Hearing [employer] Analyst Required: No Beliefs That Will Affect Care: None marital status: Single Current Living Situation: Family Current Living Situation Comment: with her son current occupational status: retired current occupation: retired from [employer] How many Children do You have: 2 How many Children do You have Comment: Son works during the day other: Ex-daughter in law assists with wound caregivers Feels Safe at Home: Yes Safety Concerns Comment: Patient reports falling and is concerned for falling at home alone Childhood Exposure to Second-Hand Smoke: Yes Diet: regular Diet Comment: Patient reports eating one meal a day. caffeine: Yes Dental Care, Regularly: No Physical Activity Frequency: Does not Exercise Seatbelt Use: never Sunscreen Use: No Assistive Devices: Cane, CPAP, Denture - Upper, Glasses and Nebulizer Review of Systems Review of Systems: Review of systems and HPI are limited to that provided by EMS and family members who are in attendance at home Physical Exam Physical Exam: The patient is sedated, intubated and unresponsive HEENT--PERRL, EOMI, mucous membranes and oropharynx dry. Neck--supple. No JVD. No bruits. Thyroid normal, trachea midline, no adenopathy. Heart--tachycardic and regular. No murmurs, rubs or gallops. Lungs--few coarse breath sounds bilaterally. No respiratory distress, no accessory muscle use. Abdomen--normal bowel sounds and soft. Nontender. Nondistended. Mildly tympanitic Extremities-- No edema. Dermatologic--skin is pale and dry, initially mottled, but did improve Neurologic--limited exam Rheumatologic--limited exam Psychiatric--unresponsive Results & Data Results & Data Vital Signs (Past 12 Hours) Vital Signs Temp Pulse Pulse Resp BP BP Pulse Ox 06/05/24 04:45 34.1 C L 95 H 20 94/52 L 88 L 06/05/24 04:00 94 H 25 H 120/60 90 06/05/24 03:50 110/58 L 06/05/24 03:45 34.3 C L 96 H 24 119/53 L 94 06/05/24 03:30 33.8 C L 100 H 24 121/53 L 94 06/05/24 03:23 95 06/05/24 03:22 107 H 24 96 06/05/24 03:20 33.8 C L 100 H 110/55 L 95 06/05/24 03:15 103 H 24 111/55 L 96 06/05/24 03:00 102 H 24 104/51 L 96 06/05/24 02:34 89 06/05/24 02:33 89 62/40 L O2 Del Method FiO2 06/05/24 04:45 Mechanical Vent 80 06/05/24 04:00 Mechanical Vent 06/05/24 03:50 06/05/24 03:45 Mechanical Vent 06/05/24 03:30 Mechanical Vent 06/05/24 03:23 Mechanical Vent 06/05/24 03:22 80 06/05/24 03:20 Mechanical Vent 06/05/24 03:15 Mechanical Vent 06/05/24 03:00 Mechanical Vent 06/05/24 02:34 06/05/24 02:33 Laboratory Results Laboratory Results WBC 9.91 K/ul (4.8-10.8) 06/05/24 02:39 RBC 3.74 M/uL (4.20-5.40) L 06/05/24 02:39 Hgb 11.1 g/dl (12.0-16.0) L 06/05/24 02:39 POC Hgb 14.3 g/dl (12.0-16.0) 06/05/24 04:03 Hct 37.7 % (37.0-47.0) 06/05/24 02:39 POC Hct 42 % (37-47) 06/05/24 04:03 MCV 100.8 fL (80.0-100.0) H 06/05/24 02:39 MCH 29.7 pg (25.0-34.0) 06/05/24 02:39 MCHC 29.4 g/dL (32.0-36.0) L 06/05/24 02:39 RDW Std Deviation 60.2 fL (36.4-46.3) H 06/05/24 02:39 RDW Coeff of Robert 16.3 % (11.5-14.5) H 06/05/24 02:39 Plt Count 97 K/uL (130-400) L 06/05/24 02:39 MPV 11.9 fL (9.4-12.4) 06/05/24 02:39 Immature Gran % (Auto) 3.3 % 06/05/24 02:39 Neut % (Auto) 68.6 % 06/05/24 02:39 Lymph % (Auto) 22.8 % 06/05/24 02:39 Lipscomb % (Auto) 4.9 % 06/05/24 02:39 Eos % (Auto) 0.1 % 06/05/24 02:39 Baso % (Auto) 0.3 % 06/05/24 02:39 Neut # (Auto) 6.79 K/uL (1.40-6.50) H 06/05/24 02:39 Lymph # (Auto) 2.26 K/uL (1.20-3.40) 06/05/24 02:39 Lipscomb # (Auto) 0.49 K/uL (0.11-0.59) 06/05/24 02:39 Eos # (Auto) 0.01 K/uL (0.00-0.50) 06/05/24 02:39 Baso # (Auto) 0.03 K/uL (0.00-0.20) 06/05/24 02:39 Immature Gran # (Auto) 0.33 K/uL (0.01-0.20) H 06/05/24 02:39 Absolute Nucleated RBC 0.03 K/uL (0.00-0.12) 06/05/24 02:39 Nucleated RBC % (auto) 0.3 % 06/05/24 02:39 Platelet Estimate Decreased (Normal) L 06/05/24 02:39 Echinocytes 1+ 06/05/24 02:39 PT 15.0 Seconds (9.0-12.0) H 06/05/24 02:39 INR 1.4 (0.9-1.1) H 06/05/24 02:39 POC pH 7.24 (7.35-7.45) L 06/05/24 04:03 POC pCO2 47 mmHg (35-46) H 06/05/24 04:03 POC pO2 75 mmHg (80-95) L 06/05/24 04:03 POC HCO3 20 chinmay/L (19-24) 06/05/24 04:03 POC Total CO2 21 mmol/L (24-31) L 06/05/24 04:03 POC Base Excess -8.0 chinmay/L (-9-1.8) 06/05/24 04:03 POC ABG O2 Sat 92.0 % (90-95) 06/05/24 04:03 POC Sodium 136 mmol/L (135-144) 06/05/24 04:03 Sodium 139 mmol/L (136-145) 06/05/24 02:39 POC Potassium 5.0 mmol/L (3.3-5.0) 06/05/24 04:03 Potassium 4.7 mmol/L (3.5-5.1) 06/05/24 02:39 POC Chloride 104 mmol/L (101-112) 06/05/24 02:39 Chloride 104 mmol/L (98-107) 06/05/24 02:39 Carbon Dioxide 17 mmol/L (21-32) L 06/05/24 02:39 POC Total CO2 20 mmol/L (24-31) L 06/05/24 02:39 Anion Gap 18 (3-11) H 06/05/24 02:39 POC Anion Gap 18.0 mmol/L (16-25) 06/05/24 02:39 POC BUN 20 mg/dl (7-18) H 06/05/24 02:39 BUN 19 mg/dl (6-23) 06/05/24 02:39 Creatinine 1.02 mg/dl (0.6-1.2) 06/05/24 02:39 POC Creatinine 1.1 mg/dl (0.6-1.3) 06/05/24 02:39 Est Cr Clr Drug Dosing 41.1 ml/min 06/05/24 02:39 eGFR 55.27 06/05/24 02:39 BUN/Creatinine Ratio 18.6 (10-20) 06/05/24 02:39 Glucose 240 mg/dl (70-99(Fasting)) H 06/05/24 02:39 POC Glucose (other) 224 mg/dl (70-99) H 06/05/24 02:39 Lactate 9.8 mmol/L (0.4-2.0) H* 06/05/24 04:37 Calcium 7.6 mg/dl (8.6-10.3) L 06/05/24 02:39 POC Ioniz Calcium Tomy 1.00 mmol/l (1.12-1.32) L 06/05/24 02:39 Magnesium 2.3 mg/dl (1.7-2.4) 06/05/24 02:39 Total Bilirubin 0.4 mg/dl (0.2-1.0) 06/05/24 02:39 AST 123 U/L (13-39) H 06/05/24 02:39 ALT 52 U/L (7-52) 06/05/24 02:39 Alkaline Phosphatase 174 U/L (34-104) H 06/05/24 02:39 Troponin I High Sens 108.3 pg/ml (0-14) H* 06/05/24 02:39 B-Natriuretic Peptide 588 pg/ml (0-100) H 06/05/24 02:39 Total Protein 5.4 gm/dl (6.0-8.3) L 06/05/24 02:39 Albumin 2.9 gm/dl (3.4-5.0) L 06/05/24 02:39 Globulin 2.5 gm/dl (2.5-4.0) 06/05/24 02:39 Albumin/Globulin Ratio 1.2 (0.9-2) 06/05/24 02:39 Lipase 70 U/L (11-82) 06/05/24 02:39 TSH 6.326 uIu/ml (0.300-4.500) H 06/05/24 02:39 Free T4 0.58 ng/dl (0.61-1.60) L 06/05/24 02:39 Urine Color Yellow 06/05/24 03:26 Urine Appearance Cloudy (Clear) A 06/05/24 03:26 Urine pH 8.5 (4.5-7.5) H 06/05/24 03:26 Ur Specific [place] 1.021 (1.000-1.030) 06/05/24 03:26 Urine Protein 3+ (Negative) H 06/05/24 03:26 Urine Glucose (UA) Trace (Negative) H 06/05/24 03:26 Urine Ketones Negative (Negative) 06/05/24 03:26 Urine Blood 3+ (Negative) H 06/05/24 03:26 Urine Nitrite Negative (Negative) 06/05/24 03:26 Urine Bilirubin Negative (Negative) 06/05/24 03:26 Urine Urobilinogen Negative (Negative) 06/05/24 03:26 Ur Leukocyte Esterase Negative (Negative) 06/05/24 03:26 Urine WBC (Auto) 11-20 /hpf (0-5) H 06/05/24 03:26 Urine RBC (Auto) 11-20 /hpf (0-2) H 06/05/24 03:26 U Hyaline Cast (Auto) 6-10 /lpf (0-2) H 06/05/24 03:26 U Epithel Cells (Auto) 3-5 /hpf (0-2) H 06/05/24 03:26 Urine Bacteria (Auto) 1+ (None Seen) H 06/05/24 03:26 Stl C. diff Tox B Gene Negative Cdiff Gene (Neg) 06/05/24 03:40 Urine Opiates Screen Neg (Neg) 06/05/24 03:26 Ur Methadone, Qual Neg (Neg) 06/05/24 03:26 Urine Fentanyl Screen Neg (Neg) 06/05/24 03:26 Urine Barbiturates Neg (Neg) 06/05/24 03:26 Ur Phencyclidine (PCP) Neg (Neg) 06/05/24 03:26 U Amphetamin/Meth Scrn Neg (Neg) 06/05/24 03:26 MDMA (Ecstasy) Screen Neg (Neg) 06/05/24 03:26 U Benzodiazepines Scrn Neg (Neg) 06/05/24 03:26 Ur Cocaine Metabolite Neg (Neg) 06/05/24 03:26 U Marijuana (THC) Screen Neg (Neg) 06/05/24 03:26 Adenovirus (PCR) Not Detected (NotDetected) 06/05/24 03:26 B. pertussis DNA (PCR) Not Detected (NotDetected) 06/05/24 03:26 B.parapertussis DNA PCR Not Detected (NotDetected) 06/05/24 03:26 C. pneumoniae DNA (PCR) Not Detected (NotDetected) 06/05/24 03:26 Coronavirus OC43 (PCR) Not Detected (NotDetected) 06/05/24 03:26 Coronavirus HKU1 (PCR) Not Detected (NotDetected) 06/05/24 03:26 Coronavirus 229E (PCR) Not Detected (NotDetected) 06/05/24 03:26 SARS-CoV-2 (PCR) DETECTED (NotDetected) A 06/05/24 03:26 Coronavirus NL63 (PCR) Not Detected (NotDetected) 06/05/24 03:26 Human Metapneumovir PCR Not Detected (NotDetected) 06/05/24 03:26 Influenza Type A (PCR) Not Detected (NotDetected) 06/05/24 03:26 Influenza Type B (PCR) Not Detected (NotDetected) 06/05/24 03:26 M. pneumoniae (PCR) Not Detected (NotDetected) 06/05/24 03:26 Parainfluenza 1 (PCR) Not Detected (NotDetected) 06/05/24 03:26 Parainfluenza 2 (PCR) Not Detected (NotDetected) 12/25/24 03:26 Parainfluenza 3 (PCR) Not Detected (NotDetected) 06/05/24 03:26 Parainfluenza 4 (PCR) Not Detected (NotDetected) 06/05/24 03:26 RSV (PCR) Not Detected (NotDetected) 06/05/24 03:26 Entero/Rhino (PCR) Not Detected (NotDetected) 06/05/24 03:26 Impressions Abdomen/Pelvis CT 06/05/24 02:34 EXAM: CT abd pelvis IV con only CLINICAL HISTORY: POST CARDIAC ARREST ASSESMENT , 120 ML OPTIRAY 320 TECHNIQUE: Contiguous axial images were obtained from the level of the diaphragm to the pubic symphysis without and with intravenous contrast. Coronal and sagittal reconstructions were likewise performed and indicated to increase the sensitivity for detecting clinically relevant pathology. If IV contrast material had not been administered, the likelihood of detecting abnormalities relevant to the patient's condition would have been substantially decreased. CT scan was performed according to ALARA (as low as reasonable achievable). COMPARISON: Prior CT abdomen-pelvis dated July 13, 2023. FINDINGS: The visualized lung bases show left pleural effusion measuring up to 5 cm in thickness with underlying left lung collapse-consolidation. Right lower lobe shows collapse with internal calcification areas. Emphysematous changes noted in visualized right lung parenchyma. The liver is enlarged measuring 16.2 cm in craniocaudal span with diffuse hypoattenuation suggestive of hepatic steatosis. No focal liver lesions are seen. There is no intra or extrahepatic biliary ductal dilatation. The gallbladder shows few calculi, largest measuring 1.6 cm. The spleen, pancreas, and adrenal glands are unremarkable. The kidneys show few subcentimetric simple cysts bilaterally. There is no hydronephrosis or perinephric fat stranding. The ureters are normal in caliber and no ureteral calculi are seen. The bladder is normal in contour. No focal or diffuse bowel wall thickening or evidence of bowel obstruction is identified. The appendix is visualized in the right lower quadrant and appears within normal limits. No adenopathy or fluid collections are seen. The aorta shows few atherocalcific plaques. The uterus shows an ill-defined hypoenhancing lesion measuring 2 x 1.3 cm at posterior myometrium, possibly representing a fibroid. Ultrasound correlation is recommended. Degenerative changes noted in the visualized spine. Mildly displaced fractures of the anterior ends of 5th and 6th ribs on right side are noted. IMPRESSION: 1. Stable hepatomegaly with diffuse hepatic steatosis. 2. Uncomplicated cholelithiasis, largest calculus measuring 1.6 cm - unchanged. 3. Left pleural effusion with underlying collapse-consolidation; right lower lobe collapse with calcification. There is increased collapse/consolidation in left lower lobe and new appearance collapse/consolidation in right lower lobe as compared to prior study. 4. Posterior uterine myometrial lesion, possibly fibroid - ultrasound correlation recommended. It was not well appreciated on previous study. 5. Stable bilateral simple renal cortical cysts (Bosniak grade 1). 6. Mildly displaced fractures of the anterior ends of 5th and 6th ribs on right side - new finding. 7. No other significant interval changes as compared to prior study. Electronically signed by Edmund Lopez 06-05-2024 04:[address] 06/05/24 02:34 EXAM: CT cervical spine wo con CLINICAL HISTORY: POST CARDIAC ARREST ASSESSMENT TECHNIQUE: A CT scan of the cervical spine was performed without the administration of intravenous contrast. Contiguous axial images were obtained from the skull base to the upper thoracic spine. Coronal and sagittal reformatted images were also reviewed. One of the following dose-reduction techniques was utilized for this exam. Automated exposure control, adjustment of the mA and/or kV according to patient size, and use of iterative reconstruction. (CTDI: 36.55 mGy, DLP: 2993.41 mGy*cm) COMPARISON: MR on 09/25/2023. FINDINGS: No evidence of acute fracture or dislocation. No signs of lytic or sclerotic lesions. Severe spondylotic changes in the cervical spine with multilevel marginal bony hypertrophies, anterior vertebra bridging, facet arthropathic changes, endplate changes, and reduced to lost intervertebral disc spaces. Multilevel disc bony hypertrophy complexes in combination with facet arthropathic changes exert effects on the spinal canal and neural foraminal. Atlantoaxial degenerative changes. Soft tissue calcification is seen in the posterior aspect of the neck IMPRESSION: 1. No interval change in comparison with MR on 09/25/2023. No evidence of acute fracture or dislocation. 2. Severe spondylotic changes in the cervical spine. Electronically signed by Gerardo Amanda 06-05-2024 03:56 AM Chest CTA 06/05/24 02:34 EXAM: CT angio chest PE protocol CLINICAL HISTORY: POST CARDIAC ARREST ASSESSMENT, TECHNIQUE: CT angiography of the chest was performed with and without intravenous contrast with the following protocol: axial images with, reconstructed coronal and sagittal images. Non-contrast images were initially acquired, followed by contrast-enhanced images in arterial and venous phases. Intravenous contrast (120 ml Optiray 320) was administered using automated injection techniques. Bolus tracking was employed to optimize arterial phase imaging. One of these 3D techniques was utilized: Maximum Intensity Pixel (MIP), 3D Reconstructed Images, Volume Rendered Images, Surface Shaded Rendering. One of the following dose reduction techniques was utilized for this exam: Automated exposure control, adjustment of the mA and/or kV according to patient size, and use of iterative reconstruction. (CTDI: 36.55mGy, DLP: 2993.41 mGy*cm) COMPARISON: XR chest 04/25/2024. CT chest 12/20/2023 FINDINGS: Aorta and Great Vessels: Atherosclerotic changes of the thoracic aorta and major branches. Unchanged. Ascending Aorta: Normal in caliber, no aneurysm or dissection. Aortic Arch: Normal in caliber, no aneurysm or dissection. Descending Aorta: Normal in caliber, no aneurysm or dissection. Pulmonary Arteries: The main pulmonary artery and its branches are patent. No evidence of pulmonary embolism or significant stenosis. Heart: Cardiac Chambers: Normal in size. No evidence of cardiomegaly. Pericardium: No pericardial effusion or thickening. Lungs and Pleura: Moderate left-sided pleural effusion measured about 6 cm from the pleural surface. Interval increase. Consolidation with air bronchogram involving posterior segments of both lower lobes. New finding. Few paraseptal emphysematous bullae noted, mainly on the right side. Unchanged. A tiny nonspecific pulmonary nodule (3 mm) seen in upper lobe of right lung. Unchanged. Few tiny bilateral subpleural nodules. Unchanged. No right sided pleural effusion. Mediastinum: ET tube is noted in situ. New finding. Multiple prominent mediastinal lymph nodes, the largest measured about 9 mm in short axis, were seen in the subcarinal group. Normal appearance of the trachea and central bronchi. Hilar Structures: Hilar structures are normal without enlargement. Chest Wall: No mass lesions or abnormalities in the chest wall. Thyroid gland: A well-defined nodule measured about 19 x 16 x 13 mm is seen in the left thyroid lobe. Showed heterogeneous enhancement and spots of calcification. Unchanged. Bones and Soft Tissues: Bilateral rib fractures involving the 3rd-5th ribs on the right side and the 4th-5th ribs on the left side. New finding. Thoracic spondylosis. Unchanged. Soft tissues are unremarkable. IMPRESSION: 1. No evidence of pulmonary embolism. 2. Bilateral rib fractures: Right: 3rd-5th ribs. Left: 4th-5th ribs. New finding. 3. Moderate left-sided pleural effusion. Passive atelectasis changes. Interval increase. 4. Consolidation with air bronchogram in posterior segments of both lower lobes. New finding. Could be related to aspiration/evolving inflammatory or infectious processes. Need clinical correlation. 5. The left thyroid nodule. Unchanged. Need ultrasound correlation. 6. Endotracheal (ET) tube in situ. New finding. 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 Shaffer was informed regarding the presence of Significant Medical Findings on this report. Electronically signed by Gerardo Amanda 06-05-2024 04:[address] 06/05/24 02:34 EXAM: CT head/brain wo con CLINICAL HISTORY: POST CARDIAC ARREST ASSESSMENT. TECHNIQUE: An axial non-contrast CT scan of the brain was performed from the skull base to the high parietal region. One of the following dose reduction techniques was utilized for this exam: Automated exposure control, adjustment of the mA and/or kV according to patient size, and use of iterative reconstruction. CTDI: 36.55 mGy, DLP: 2993.41 mGy*cm COMPARISON: None. FINDINGS: No definite calvarium fractures. A hemorrhage with a thickness of 1.4 cm in the galeal tissue in the left frontal region. There are tiny ill-defined hypodense areas noted in the subcortical white matter and the periventricular region bilaterally, suggestive of moderate microvascular ischemic changes. No established territorial infarction was identified. No evidence of intracerebral hemorrhage. No extra axial hematoma. No other focal parenchymal abnormalities are demonstrated. Pratt-white matter differentiation is maintained. No midline shifts or deformity. Normal configuration of the cerebral ventricles. Normal CT appearance of the posterior fossa structures namely the cerebellar hemispheres, brainstem, and cerebellar peduncles. The cerebello-pontine angles are clear. The pituitary gland, the pineal gland, and the optic chiasm are unremarkable. IMPRESSION: 1. No intracranial acute injury was noted. 2. A hemorrhage with a thickness of 1.4 cm in the galeal tissue in the left frontal region. 3. Moderate microvascular ischemic changes. Electronically signed by Gerardo Amanda 06-05-2024 03:48 AM Chest X-Ray 06/05/24 03:30 EXAM: XR chest 1V portable CLINICAL HISTORY: OG TUBE PLACEMENT TECHNIQUE: An X-ray image of the chest is obtained in AP projection. COMPARISON: comparison with the previous study dated 06/05/2024 and 04/25/2024 FINDINGS: Pulmonary Parenchyma: ET tube is seen at a distance of about 5.5 cm from the isaias. NGT noted coursing below the diaphragm, tip not included in the field of view. Blunting of left costophrenic angle with silhouetting of the left hemidiaphragm suggesting left-sided pleural effusion with subsegmental atelectasis. Right lower lung zone air space filling opacity with silhouetting of the right hemidiaphragm and blunting of the left costophrenic angle which may be due to aspiration or superadded infectious process for clinical correlation. Veiling opacity of both lung apices ?? positional Heart and Mediastinum: Heart size can not be assessed in AP projection. No mediastinal widening or masses. No hilar or mediastinal lymphadenopathy. 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 Soft Tissues: Soft tissues overlying the chest wall are unremarkable. IMPRESSION: 1. ET tube is seen at a distance of about 5.5 cm from the isaias. (slightly downwards in comparison with the previous study which was 6.4 cm from the isaias) 2. Left lower lung zone opacity silhouetting left hemidiaphragm with blunting of the left costophrenic angle suggesting left-sided pleural effusion with subsegmental lung collapse. (interval increase in comparison with the previous study) 3. Right lower lung zone opacity silhouetting right hemidiaphragm with blunting of the right costophrenic angle which may suggest aspiration or superadded infectious process for clinical correlation. (new finding) Electronically signed by Gerardo Amanda 06-05-2024 04:55 AM Code Status & VTE Plan Code Status Full code VTE Prophylaxis Plan VTE Prophylaxis will be ordered: Yes PG Care Time/CCT Total # of Minutes Spent Total Time Spent with Patient: Total time spent is greater than 50% in coordination of care (as documented) at patient's floor/unit and/or counseling patient: 60 minutes Coding Level of Care Code 13302 INT INP/OBS CARE 3/75MIN Diagnoses Admitted to intensive care unit Z78.9 Cardiac arrest I46.9 Acidosis, lactic E87.20 COVID-19 U07.1 Multifocal pneumonia J18.9 Diabetes mellitus, type 2 E11.9
--- NOTE | 2024-06-05 05:23 | Billing Data ---
Date of Service June 05, 2024 Coding Level of Care Code 79872 CRITICAL CARE
[2024-06-05 05:29] LABS: Adenovirus F 40/41 PCR Not Detected (NotDetected); Astrovirus PCR Not Detected (NotDetected); Campylobacter PCR Not Detected (NotDetected); Cryptosporidium PCR Not Detected (NotDetected); Cyclospora cayetanensis PCR Not Detected (NotDetected); Entamoeba histolytica PCR Not Detected (NotDetected); Enteropathogenic E.coli (EPEC) Not Detected (NotDetected); Enterotoxigenic E.coli (ETEC) Not Detected (NotDetected); Giardia lamblia PCR Not Detected (NotDetected); Norovirus GI/GII PCR Not Detected (NotDetected); Plesiomonas shigelloides PCR Not Detected (NotDetected); Rotavirus A PCR Not Detected (NotDetected); Salmonella PCR Not Detected (NotDetected); Sapovirus PCR Not Detected (NotDetected); Shiga-like Toxin E.coli (STEC) Not Detected (NotDetected); Shigella/Enteroinvasive E.coli Not Detected (NotDetected); Vibrio cholerae PCR Not Detected (NotDetected); Vibrio species PCR Not Detected (NotDetected); Yersinia enterocolitica PCR Not Detected (NotDetected)
[2024-06-05] MEDS ORDERED: AZITHROMYCIN 500 MG VIAL IV SCH (05:30)
[2024-06-05] MEDS: dexAMETHasone**PF** 10 MG/ML VIAL IV ONE (05:36)
[2024-06-05] MEDS: SODIUM CHLORIDE 0.9% 500 ML IV ONE (05:37)
--- NOTE | 2024-06-05 05:50 | Critical Care Consultation ---
Date of Consultation June 05, 2024 Assessment & Plan (1) Cardiac arrest: Reason Critically Ill: 79-year-old female with greater than 40 minutes of CPR following cardiac arrest PLAN: Neuro: Encephalopathy -No purposeful movements at the present time -Holding sedatives until patient appears to be dyssynchronous with vent or in discomfort Resp: Possible COVID pneumonia Left pleural effusion: Chronic and increased Atelectasis bilateral lower lobes on CT Bilateral rib fractures Acute hypoxic and hypercapnic respiratory failure: Probable aspiration Acute lung injury -PF ratio less than 100 -I anticipate the acute lung injury to worsen as the patient progresses through stages of resuscitation COPD at baseline Sleep apnea CV: Cardiac arrest -Requiring vasoactive medication administration -Administer via peripheral line in accordance with patient/family wishes -Echocardiogram pending Coronary artery disease Fluids/Renal: High gap metabolic acidosis -Lactic acid acidosis At significant risk for acute kidney injury: Cautiously the following urine output : Postmenopausal bleeding with abnormal ultrasound of the uterus Posterior uterine myometrial lesion -Prior records indicate need for evaluation of uterine cavity and suspicion of an endometrial lesion -I do not see additional consideration regarding diagnostic workup, potential for undiagnosed cancer was discussed during gynecologic visit ID: Diarrhea secondary to -EAEC E coli stool infection COVID-positive -Remdesivir ordered by hospitalist medicine Blood culture pending -Zosyn, Zithromax, vancomycin empiric GI/Nutrition: N.p.o. Cholelithiasis -1.6 cm calculus: Unchanged on abdominal CT Heme: Anemia -Near baseline DVT prophylaxis: SCDs, chemoprophylaxis held Endocrine: ICU hyperglycemia protocol Vascular access: Peripheral IV, no central venous access secondary to patient directives Code Status: DNR in event of cardiac arrest, no escalation of care Disposition: ICU (2) COVID-19: (3) Shock: (4) High anion gap metabolic acidosis: (5) Diabetes mellitus, type 2: (6) COPD (chronic obstructive pulmonary disease): Supervising Physician Co-Signing Physician Notes Patient received in signout at 0 630 and reflective of my independent evaluation management and services. Briefly patient suffered cardiac arrest secondary to presumptive sepsis: COVID pneumonia and possible EAEC E. coli. Patient had a significantly prolonged downtime with multiple rounds of epinephrine. It was reported there was a loss of airway that necessitated 2 prehospital intubations. During my evaluation the pupils are fixed, the patient is triggering the vent spontaneously; however, not at a significant rate reflective of the degree of acidosis to compensate. I am highly suspicious of acute lung injury secondary to probable aspiration and questionable contusion related to resuscitative efforts. She is on 90% FiO2 and saturating 88%. Patient may be developing DIC as there is now dark blood emanating from her Hi-Lo suction, NG tube. In discussion with patient's son he reports the patient has been a DNR since the late s when the patient's mother . The patient has been living independent and working at a local [email or web address]. Her independence was tantamount to her. Patient has multiple bilateral rib fractures, given the downtime and injuries I do feel that her survival would preclude a functional independent living. Risk of chronic ventilatory failure and need for tracheostomy would be very high. We discussed heroic efforts should the patient undergo cardiac arrest and the son indicated that she would be a DNR/DNI. We also discussed how aggressive to escalate care should this be required, including central venous access, arterial lines, blood transfusions. Patient's son reports he is aware of her wishes and generally she would not want any of this; however, they have lost other family members on and they do not feel they can allow the patient to on . Additionally they are attempting to have other family members present to bedside. Given the unique circumstances we will continue current therapies including antibiotics; however, we will not escalate therapies such as blood component transfusions, escalation of vasoactive medications, no renal replacement therapy, no lung salvage maneuvers such as proning. Son is aware of the poor prognosis and likelihood for patient to decompensate, he reported if she survives today they will most likely proceed with compassionate extubation tomorrow and this also allows additional family members to present to bedside. I have personally spent 85 minutes of critical care time in the direct management of this patient. This is a life/limb threatening event. This includes time spent evaluating patient, direct bedside care, chart review, placi ng orders, interpretation of diagnostic studies, discussion with consultants, patient, and/or family members regarding treatment decisions, as well as other required patient management activities. This time is exclusive of all separately billable procedures, and teaching time and separate from and in addition to any other critical care service time. History of Present Illness Reason for Consultation: s/p cardiac arrest with ROSC Requesting Physician: Tk Cheng MD Attending Physician: Tk Cheng MD History of Present Illness 79 YOF with medical history of: COPD, HTN, OA, Osteomyelitis of cervical spine, pleural effusions, LISSETTE, CAD with stents, PAD. Patient comes to the EMD today following collapse at home, she required CPR, epinephrine, and intubation in the field push dose pressors with report of PEA/bradycardia. She is accompanied by her 2 son's and grandson. Information in this HPI is obtained from the son. By report the patient went up to go the bathroom and after not hearing from Renetta he went to check on her. She was found slumped over the bath tub that was located beside the toilet. She was reportedly awake and able to talk when he found her but was to weak to get up on her own. They did get her up back to the toilet and they called EMS. On arrival EMS noted the patient to become unresponsive and bradycardic. She was intubated as well as required CPR, noted skin tear on chest from CPR. EMS reports multiple doses of push dose pressors on way to the ER. On arrival to ER the patient was with NSR, and hypotensive. She was initiated on Levophed infusion, labs were obtained. She was noted with sever acidosis of 6.9, co2 98- she had ventilator rate adjusted, and was given 2 amps HCO3 and 1gm CACL which she responded to with increase in HR and blood pressure. Lactate was noted at 12. She was taken to CT scan for head, CTA chest, and abd/pelvis with contrast. No acute processes noted on imaging. Patient admitted to ICU for continued supportive care and continued work up. Patient found to have COVID on admission as well. Also of concern is that she has not had any purposeful movement while in the EMD, to include reaching for the ETT, bucking the ventilator, or coughing during suctioning- she remains without sedation. Of note CT head noted hematoma of 1.4 cm in the galeal tissue, family reports that she had a fall about 1 week ago in the bathroom that resulted in left forehead and left facial ecchymosis and swelling. They are unsure if she has DNR forms at home as there was some discussion of her not wanting to be on a Ventilator. They do currently want full support while they attempt to obtain any documentation. Allergies Allergy/AdvReac Type Severity Reaction Status Date / Time amoxicillin Allergy Intermediate Rash, itchy Verified 04/23/24 08:52 strawberry Allergy Intermediate Rash Verified 04/23/24 08:52 nickel Allergy Mild Itchy Verified 04/23/24 08:52 metformin AdvReac Intermediate Diarrhea Verified 04/23/24 08:52 Home Medications Medication Instructions Recorded Confirmed Type aspirin 81 mg tablet,delayed 81 mg PO HS 03/07/18 04/23/24 History release vitamins A,C,G-grii-umayup 2,148 2 tab PO BID 03/07/18 04/23/24 History mcg-113 mg-45 mg-17.4 mg tablet (PreserVision AREDS) acetaminophen 500 mg tablet 1,000 mg PO UD PRN Fever Or Pain 01/17/19 04/23/24 History Flutter Valve #1 ea 04/04/22 04/23/24 Rx ibuprofen 200 mg tablet 200 mg PO Q6H PRN 06/19/23 04/23/24 History rosuvastatin 20 mg tablet (Crestor) 20 mg PO DAILY #90 tabs 07/10/23 04/23/24 Rx Flutter Valve #1 ea 07/17/23 04/23/24 Rx sodium chloride 7 % for 1 inh inhalation BID #240 mL 07/17/23 04/23/24 Rx nebulization CPAP Machine #1 ea 11/30/23 04/23/24 Rx albuterol sulfate 90 mcg/actuation 2 puff inhalation Q6H PRN 11/30/23 04/23/24 Rx aerosol inhaler (Ventolin HFA) shortness of breath or wheezing #18 grams fluticasone fur. 100 mcg-umeclid 1 inh inhalation DAILY #60 ea 11/30/23 04/23/24 Rx 62.5 mcg-vilant 25 mcg inhalat.powder (Trelegy Ellipta) ipratropium 0.5 mg-albuterol 3 mg 3 ml inhalation Q8H PRN shortness 11/30/23 04/23/24 Rx (2.5 mg base)/3 mL nebulization of breath or wheezing #180 mL soln nitroglycerin 0.4 mg sublingual 0.4 mg sublingual UD PRN chest 01/19/24 04/23/24 Rx tablet pain #30 tabs hydrocortisone 2.5 % topical cream 1 applic [place] BID PRN hemorrhoids 2 02/13/24 04/23/24 Rx with perineal applicator weeks #30 grams citalopram 20 mg tablet (Celexa) 20 mg PO DAILY #90 tabs 03/06/24 04/23/24 Rx furosemide 40 mg tablet 40 mg PO QAM #7 tabs 04/26/24 Rx cefuroxime axetil 500 mg tablet 500 mg PO Q12H 10 days #20 tabs 05/02/24 Rx losartan 25 mg tablet 25 mg PO QAM #90 tabs 05/29/24 Rx metoprolol tartrate 100 mg tablet 100 mg PO BID #180 tabs 05/29/24 Rx Patient History Medical History Carotid artery disease Carotid doppler 09/2022: < 50% JACOB/LICA stenosis Edema of both lower extremities Chronic respiratory failure with hypoxia O2 2L PRN exertion by pulmonary, per patient no recent use O2 96% RA at PAT visit 04/10/23 CAD (coronary artery disease) PCI to LAD 2001 for IN Follows with [facility] cardiology Macular degeneration Pulmonary nodules Follows with [facility] pulm PAD (peripheral artery disease) Thyroid nodule monitors Incisional hernia Current, r/t bladder sling 2000 Osteoarthritis Hiatal hernia Hearing deficit Myocardial Infarction PCI to LAD 2001 for IN Hyperlipidemia Hypertension Sleep apnea CPAP (compliant) Chronic obstructive pulmonary disease Asthma Surgical History History of surgery Micro Suspension Laryngoscopy with biopsies History of right cataract surgery History of cataract surgery R/L History of esophagogastroduodenoscopy (EGD) History of colonoscopy History of breast lump removal History of dilation and curettage Status post left knee replacement Left TKA (03/29/18): SAB at L3-4 + PNB at [facility] History of carpal tunnel release History of tooth extraction History of surgery Bladder sling History of bilateral tubal ligation Hx of foot surgery Right Status post biopsy of thyroid gland "Benign" History of cardiac cath PCI to LAD 2001 Family History Brother Myocardial infarction Lung cancer Mother Skin cancer Arthritis History of gallbladder disease Myocardial infarction Pulmonary embolism Father Coronary heart disease Acute myocardial infarction Myocardial infarction Grandmother (Paternal) Skin cancer Brother Leukemia Myocardial infarction History of coronary artery bypass graft Grandfather (Paternal) Myocardial infarction Son Diabetes Other No family history of adverse response to anesthesia No family history of bleeding disorder Denies family history of Ovarian cancer Prostate cancer Breast cancer Colorectal cancer Social History Smoking Status: Former smoker Tobacco Type: Cigarettes Age Started Using Tobacco: 15; packs per day: 1; Cigarettes Per Day: 1 PPD x 50+ years (intermittent); Second Hand Exposure: No; Do You Dip or Chew Tobacco: No; Hx Alcohol Use: No Hx Substance Use: No Preferred Language: Malaysian Communication Ability: Effective Visual Impairment: Limited Hearing Ability: Hard of Hearing Collection Supervisor Required: No Beliefs That Will Affect Care: None marital status: Single Current Living Situation: Family Current Living Situation Comment: with son current occupational status: retired current occupation: retired from [employer] How many Children do You have: 2 How many Children do You have Comment: Son works during the day Other Information That Helps Us Care for You: No other: Ex-daughter in law assists with wound caregivers Feels Safe at Home: Yes Safety Concerns: Feels Safe At This Time Safety Concerns Comment: Patient reports falling and is concerned for falling at home alone Childhood Exposure to Second-Hand Smoke: Yes Diet: regular Diet Comment: Patient reports eating one meal a day. caffeine: Yes Dental Care, Regularly: No Physical Activity Frequency: Does not Exercise Seatbelt Use: never Sunscreen Use: No Assistive Devices: Other Assistive Devices Comment: unable to assess Review of Systems Review of Systems: vamsi secondary to intubation status Physical Exam Physical Exam: PHYSICAL EXAM: Head: Left frontal hematoma/swelling Neuro: Pupils midline, minimal to no reaction- will assess with pupilometer on arrival to ICU, intubated, no spontaneous movement, no cough, no grimmace to pain, GCS 3tT, Chest: equal rise and fall of the chest, no accessory muscle use, no heaves or thirlls, Clear to auscultation, on room air, Cardiac: Regular rate and rhythm, telemetry reviewed- NSR no ectopy, skin cool and dry cap refill >3 seconds, peripheral pulses +2 no JVD, GI: hyperactive bowel sounds, large amount of liquid stool- rectal tube placed by EMD for stool containment, softly distended : Vásquez to gravity draining dilute yellow urine Skin: thin skin, noted tears to right hand, chest, Results & Data Results & Data Vital Signs (Past 12 Hours) Vital Signs Temp Pulse Pulse Resp BP BP Pulse Ox 06/05/24 05:20 34.1 C L 94 H 21 100/49 L 86 L 06/05/24 04:57 34.1 C L 95 H 21 94/52 L 87 L 06/05/24 04:45 34.1 C L 95 H 20 94/52 L 88 L 06/05/24 04:00 94 H 25 H 120/60 90 06/05/24 03:50 110/58 L 06/05/24 03:45 34.3 C L 96 H 24 119/53 L 94 06/05/24 03:30 33.8 C L 100 H 24 121/53 L 94 06/05/24 03:23 95 06/05/24 03:22 107 H 24 96 06/05/24 03:20 33.8 C L 100 H 110/55 L 95 06/05/24 03:15 103 H 24 111/55 L 96 06/05/24 03:00 102 H 24 104/51 L 96 06/05/24 02:34 89 06/05/24 02:33 89 62/40 L O2 Del Method FiO2 06/05/24 05:20 Mechanical Vent 80 06/05/24 04:57 Mechanical Vent 80 06/05/24 04:45 Mechanical Vent 80 06/05/24 04:00 Mechanical Vent 06/05/24 03:50 06/05/24 03:45 Mechanical Vent 06/05/24 03:30 Mechanical Vent 06/05/24 03:23 Mechanical Vent 06/05/24 03:22 80 06/05/24 03:20 Mechanical Vent 06/05/24 03:15 Mechanical Vent 06/05/24 03:00 Mechanical Vent 06/05/24 02:34 06/05/24 02:33 Laboratory Results Abnormal lab results 06/05/24 06/05/24 06/05/24 Range/Units 02:39 02:40 03:26 RBC 3.74 L (4.20-5.40) M/uL Hgb 11.1 L (12.0-16.0) g/dl MCV 100.8 H (80.0-100.0) fL MCHC 29.4 L (32.0-36.0) g/dL RDW Std Deviation 60.2 H (36.4-46.3) fL RDW Coeff of Robert 16.3 H (11.5-14.5) % Plt Count 97 L (130-400) K/uL Neut # (Auto) 6.79 H (1.40-6.50) K/uL Immature Gran # (Auto) 0.33 H (0.01-0.20) K/uL Platelet Estimate Decreased L (Normal) PT 15.0 H (9.0-12.0) Seconds INR 1.4 H (0.9-1.1) POC pH 6.90 L* (7.35-7.45) POC pCO2 98 H (35-46) mmHg POC pO2 (80-95) mmHg POC Base Excess -14.0 L (-9-1.8) chinmay/L POC ABG O2 Sat 87.0 L (90-95) % Carbon Dioxide 17 L (21-32) mmol/L POC Total CO2 20 L 22 L (24-31) mmol/L Anion Gap 18 H (3-11) POC BUN 20 H (7-18) mg/dl Glucose 240 H (70-99(Fasting)) mg/dl POC Glucose (other) 224 H (70-99) mg/dl Lactate 12.1 H* (0.4-2.0) mmol/L Calcium 7.6 L (8.6-10.3) mg/dl POC Ioniz Calcium Tomy 1.00 L (1.12-1.32) mmol/l AST 123 H (13-39) U/L Alkaline Phosphatase 174 H (34-104) U/L Troponin I High Sens 108.3 H* (0-14) pg/ml B-Natriuretic Peptide 588 H (0-100) pg/ml Total Protein 5.4 L (6.0-8.3) gm/dl Albumin 2.9 L (3.4-5.0) gm/dl TSH 6.326 H (0.300-4.500) uIu/ml Free T4 0.58 L (0.61-1.60) ng/dl Urine Appearance Cloudy A (Clear) Urine pH 8.5 H (4.5-7.5) Urine Protein 3+ H (Negative) Urine Glucose (UA) Trace H (Negative) Urine Blood 3+ H (Negative) Urine WBC (Auto) 11-20 H (0-5) /hpf Urine RBC (Auto) 11-20 H (0-2) /hpf U Hyaline Cast (Auto) 6-10 H (0-2) /lpf U Epithel Cells (Auto) 3-5 H (0-2) /hpf Urine Bacteria (Auto) 1+ H (None Seen) SARS-CoV-2 (PCR) DETECTED A (NotDetected) 06/05/24 06/05/24 Range/Units 04:03 04:37 RBC (4.20-5.40) M/uL Hgb (12.0-16.0) g/dl MCV (80.0-100.0) fL MCHC (32.0-36.0) g/dL RDW Std Deviation (36.4-46.3) fL RDW Coeff of Robert (11.5-14.5) % Plt Count (130-400) K/uL Neut # (Auto) (1.40-6.50) K/uL Immature Gran # (Auto) (0.01-0.20) K/uL Platelet Estimate (Normal) PT (9.0-12.0) Seconds INR (0.9-1.1) POC pH 7.24 L (7.35-7.45) POC pCO2 47 H (35-46) mmHg POC pO2 75 L (80-95) mmHg POC Base Excess (-9-1.8) chinmay/L POC ABG O2 Sat (90-95) % Carbon Dioxide (21-32) mmol/L POC Total CO2 21 L (24-31) mmol/L Anion Gap (3-11) POC BUN (7-18) mg/dl Glucose (70-99(Fasting)) mg/dl POC Glucose (other) (70-99) mg/dl Lactate 9.8 H* (0.4-2.0) mmol/L Calcium (8.6-10.3) mg/dl POC Ioniz Calcium Tomy (1.12-1.32) mmol/l AST (13-39) U/L Alkaline Phosphatase (34-104) U/L Troponin I High Sens (0-14) pg/ml B-Natriuretic Peptide (0-100) pg/ml Total Protein (6.0-8.3) gm/dl Albumin (3.4-5.0) gm/dl TSH (0.300-4.500) uIu/ml Free T4 (0.61-1.60) ng/dl Urine Appearance (Clear) Urine pH (4.5-7.5) Urine Protein (Negative) Urine Glucose (UA) (Negative) Urine Blood (Negative) Urine WBC (Auto) (0-5) /hpf Urine RBC (Auto) (0-2) /hpf U Hyaline Cast (Auto) (0-2) /lpf U Epithel Cells (Auto) (0-2) /hpf Urine Bacteria (Auto) (None Seen) SARS-CoV-2 (PCR) (NotDetected) Diagnostic Findings Abdomen/Pelvis CT 06/05/24 02:34 EXAM: CT abd pelvis IV con only CLINICAL HISTORY: POST CARDIAC ARREST ASSESMENT , 120 ML OPTIRAY 320 TECHNIQUE: Contiguous axial images were obtained from the level of the diaphragm to the pubic symphysis without and with intravenous contrast. Coronal and sagittal reconstructions were likewise performed and indicated to increase the sensitivity for detecting clinically relevant pathology. If IV contrast material had not been administered, the likelihood of detecting abnormalities relevant to the patient's condition would have been substantially decreased. CT scan was performed according to ALARA (as low as reasonable achievable). COMPARISON: Prior CT abdomen-pelvis dated July 13, 2023. FINDINGS: The visualized lung bases show left pleural effusion measuring up to 5 cm in thickness with underlying left lung collapse-consolidation. Right lower lobe shows collapse with internal calcification areas. Emphysematous changes noted in visualized right lung parenchyma. The liver is enlarged measuring 16.2 cm in craniocaudal span with diffuse hypoattenuation suggestive of hepatic steatosis. No focal liver lesions are seen. There is no intra or extrahepatic biliary ductal dilatation. The gallbladder shows few calculi, largest measuring 1.6 cm. The spleen, pancreas, and adrenal glands are unremarkable. The kidneys show few subcentimetric simple cysts bilaterally. There is no hydronephrosis or perinephric fat stranding. The ureters are normal in caliber and no ureteral calculi are seen. The bladder is normal in contour. No focal or diffuse bowel wall thickening or evidence of bowel obstruction is identified. The appendix is visualized in the right lower quadrant and appears within normal limits. No adenopathy or fluid collections are seen. The aorta shows few atherocalcific plaques. The uterus shows an ill-defined hypoenhancing lesion measuring 2 x 1.3 cm at posterior myometrium, possibly representing a fibroid. Ultrasound correlation is recommended. Degenerative changes noted in the visualized spine. Mildly displaced fractures of the anterior ends of 5th and 6th ribs on right side are noted. IMPRESSION: 1. Stable hepatomegaly with diffuse hepatic steatosis. 2. Uncomplicated cholelithiasis, largest calculus measuring 1.6 cm - unchanged. 3. Left pleural effusion with underlying collapse-consolidation; right lower lobe collapse with calcification. There is increased collapse/consolidation in left lower lobe and new appearance collapse/consolidation in right lower lobe as compared to prior study. 4. Posterior uterine myometrial lesion, possibly fibroid - ultrasound correlation recommended. It was not well appreciated on previous study. 5. Stable bilateral simple renal cortical cysts (Bosniak grade 1). 6. Mildly displaced fractures of the anterior ends of 5th and 6th ribs on right side - new finding. 7. No other significant interval changes as compared to prior study. Electronically signed by Edmund Lopez 06-05-2024 04:[address] 06/05/24 02:34 EXAM: CT cervical spine wo con CLINICAL HISTORY: POST CARDIAC ARREST ASSESSMENT TECHNIQUE: A CT scan of the cervical spine was performed without the administration of intravenous contrast. Contiguous axial images were obtained from the skull base to the upper thoracic spine. Coronal and sagittal reformatted images were also reviewed. One of the following dose-reduction techniques was utilized for this exam. Automated exposure control, adjustment of the mA and/or kV according to patient size, and use of iterative reconstruction. (CTDI: 36.55 mGy, DLP: 2993.41 mGy*cm) COMPARISON: MR on 09/25/2023. FINDINGS: No evidence of acute fracture or dislocation. No signs of lytic or sclerotic lesions. Severe spondylotic changes in the cervical spine with multilevel marginal bony hypertrophies, anterior vertebra bridging, facet arthropathic changes, endplate changes, and reduced to lost intervertebral disc spaces. Multilevel disc bony hypertrophy complexes in combination with facet arthropathic changes exert effects on the spinal canal and neural foraminal. Atlantoaxial degenerative changes. Soft tissue calcification is seen in the posterior aspect of the neck IMPRESSION: 1. No interval change in comparison with MR on 09/25/2023. No evidence of acute fracture or dislocation. 2. Severe spondylotic changes in the cervical spine. Electronically signed by Gerardo Amanda 06-05-2024 03:56 AM Chest CTA 06/05/24 02:34 EXAM: CT angio chest PE protocol CLINICAL HISTORY: POST CARDIAC ARREST ASSESSMENT, TECHNIQUE: CT angiography of the chest was performed with and without intravenous contrast with the following protocol: axial images with, reconstructed coronal and sagittal images. Non-contrast images were initially acquired, followed by contrast-enhanced images in arterial and venous phases. Intravenous contrast (120 ml Optiray 320) was administered using automated injection techniques. Bolus tracking was employed to optimize arterial phase imaging. One of these 3D techniques was utilized: Maximum Intensity Pixel (MIP), 3D Reconstructed Images, Volume Rendered Images, Surface Shaded Rendering. One of the following dose reduction techniques was utilized for this exam: Automated exposure control, adjustment of the mA and/or kV according to patient size, and use of iterative reconstruction. (CTDI: 36.55mGy, DLP: 2993.41 mGy*cm) COMPARISON: XR chest 04/25/2024. CT chest 12/20/2023 FINDINGS: Aorta and Great Vessels: Atherosclerotic changes of the thoracic aorta and major branches. Unchanged. Ascending Aorta: Normal in caliber, no aneurysm or dissection. Aortic Arch: Normal in caliber, no aneurysm or dissection. Descending Aorta: Normal in caliber, no aneurysm or dissection. Pulmonary Arteries: The main pulmonary artery and its branches are patent. No evidence of pulmonary embolism or significant stenosis. Heart: Cardiac Chambers: Normal in size. No evidence of cardiomegaly. Pericardium: No pericardial effusion or thickening. Lungs and Pleura: Moderate left-sided pleural effusion measured about 6 cm from the pleural surface. Interval increase. Consolidation with air bronchogram involving posterior segments of both lower lobes. New finding. Few paraseptal emphysematous bullae noted, mainly on the right side. Unchanged. A tiny nonspecific pulmonary nodule (3 mm) seen in upper lobe of right lung. Unchanged. Few tiny bilateral subpleural nodules. Unchanged. No right sided pleural effusion. Mediastinum: ET tube is noted in situ. New finding. Multiple prominent mediastinal lymph nodes, the largest measured about 9 mm in short axis, were seen in the subcarinal group. Normal appearance of the trachea and central bronchi. Hilar Structures: Hilar structures are normal without enlargement. Chest Wall: No mass lesions or abnormalities in the chest wall. Thyroid gland: A well-defined nodule measured about 19 x 16 x 13 mm is seen in the left thyroid lobe. Showed heterogeneous enhancement and spots of calcification. Unchanged. Bones and Soft Tissues: Bilateral rib fractures involving the 3rd-5th ribs on the right side and the 4th-5th ribs on the left side. New finding. Thoracic spondylosis. Unchanged. Soft tissues are unremarkable. IMPRESSION: 1. No evidence of pulmonary embolism. 2. Bilateral rib fractures: Right: 3rd-5th ribs. Left: 4th-5th ribs. New finding. 3. Moderate left-sided pleural effusion. Passive atelectasis changes. Interval increase. 4. Consolidation with air bronchogram in posterior segments of both lower lobes. New finding. Could be related to aspiration/evolving inflammatory or infectious processes. Need clinical correlation. 5. The left thyroid nodule. Unchanged. Need ultrasound correlation. 6. Endotracheal (ET) tube in situ. New finding. [facility]'s ER was called at [phone] at 3:36 AM POULTRY TENDER, 06/05/2024, and Dr. Shaffer was informed regarding the presence of Significant Medical Findings on this report. Electronically signed by Gerardo Amanda 06-05-2024 04:44 AM Chest X-Ray 06/05/24 02:34 EXAM: XR chest 1V portable CLINICAL HISTORY: INTUBATION [facility]FK DIDN'T WANT ANOTHER IMAGE, XRAY USED FOR TUBE CHECK TECHNIQUE: An X-ray image of the chest is obtained in AP projection. COMPARISON: CR 04/25/2024 was reviewed. FINDINGS: ET tube is seen at a distance of about 6.4 cm from the isaias. (slightly high in position, about midway within the tracheal column) IMPRESSION: 1. ET tube is seen at a distance of about 6.4 cm from the isaias. (slightly high, about midway within the tracheal column) 2. Suggested improvement regarding the degree of previously visualized left pleural effusion. Electronically signed by Gerardo Amanda 06-05-2024 03:[address] 06/05/24 02:34 EXAM: CT head/brain wo con CLINICAL HISTORY: POST CARDIAC ARREST ASSESSMENT. TECHNIQUE: An axial non-contrast CT scan of the brain was performed from the skull base to the high parietal region. One of the following dose reduction techniques was utilized for this exam: Automated exposure control, adjustment of the mA and/or kV according to patient size, and use of iterative reconstruction. CTDI: 36.55 mGy, DLP: 2993.41 mGy*cm COMPARISON: None. FINDINGS: No definite calvarium fractures. A hemorrhage with a thickness of 1.4 cm in the galeal tissue in the left frontal region. There are tiny ill-defined hypodense areas noted in the subcortical white matter and the periventricular region bilaterally, suggestive of moderate microvascular ischemic changes. No established territorial infarction was identified. No evidence of intracerebral hemorrhage. No extra axial hematoma. No other focal parenchymal abnormalities are demonstrated. Pratt-white matter differentiation is maintained. No midline shifts or deformity. Normal configuration of the cerebral ventricles. Normal CT appearance of the posterior fossa structures namely the cerebellar hemispheres, brainstem, and cerebellar peduncles. The cerebello-pontine angles are clear. The pituitary gland, the pineal gland, and the optic chiasm are unremarkable. IMPRESSION: 1. No intracranial acute injury was noted. 2. A hemorrhage with a thickness of 1.4 cm in the galeal tissue in the left frontal region. 3. Moderate microvascular ischemic changes. Electronically signed by Gerardo Amanda 06-05-2024 03:48 AM Chest X-Ray 06/05/24 03:30 EXAM: XR chest 1V portable CLINICAL HISTORY: OG TUBE PLACEMENT TECHNIQUE: An X-ray image of the chest is obtained in AP projection. COMPARISON: comparison with the previous study dated 06/05/2024 and 04/25/2024 FINDINGS: Pulmonary Parenchyma: ET tube is seen at a distance of about 5.5 cm from the isaias. NGT noted coursing below the diaphragm, tip not included in the field of view. Blunting of left costophrenic angle with silhouetting of the left hemidiaphragm suggesting left-sided pleural effusion with subsegmental atelectasis. Right lower lung zone air space filling opacity with silhouetting of the right hemidiaphragm and blunting of the left costophrenic angle which may be due to aspiration or superadded infectious process for clinical correlation. Veiling opacity of both lung apices ?? positional Heart and Mediastinum: Heart size can not be assessed in AP projection. No mediastinal widening or masses. No hilar or mediastinal lymphadenopathy. 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 Soft Tissues: Soft tissues overlying the chest wall are unremarkable. IMPRESSION: 1. ET tube is seen at a distance of about 5.5 cm from the isaias. (slightly downwards in comparison with the previous study which was 6.4 cm from the isaias) 2. Left lower lung zone opacity silhouetting left hemidiaphragm with blunting of the left costophrenic angle suggesting left-sided pleural effusion with subsegmental lung collapse. (interval increase in comparison with the previous study) 3. Right lower lung zone opacity silhouetting right hemidiaphragm with blunting of the right costophrenic angle which may suggest aspiration or superadded infectious process for clinical correlation. (new finding) Electronically signed by Gerardo Amanda 06-05-2024 04:55 AM Medications Administered Sodium Chloride (Nss) 1,000 mls @ 125 mls/hr IV .Q8H [facility] Stop: 06/06/24 02:44 Last Admin: 06/05/24 03:30 Dose: 125 mls/hr Documented By: AGUSTINA Norepinephrine Bitartrate (Levophed/D5w) 4 mg in 250 mls @ 24.3 mls/hr IV .[id number] AMELIA; Protocol Stop: 07/05/24 02:44 Last Titration: 06/05/24 05:08 Dose: 0.09 mcg/kg/min, 24.3 mls/hr Documented By: PENNY Co-signed By: IDD Titration: 06/05/24 04:21 Dose: 0.05 mcg/kg/min, 13.5 mls/hr Documented By: PENNY Co-signed By: HJW Titration: 06/05/24 02:45 Dose: 0.07 mcg/kg/min, 18.9 mls/hr Documented By: AGUSTINA Co-signed By: PENNY Admin: 06/05/24 02:37 Dose: 0.05 mcg/kg/min, 13.5 mls/hr Documented By: AGUSTINA Co-signed By: PAG Vancomycin HCl 1,500 mg/ (Sodium Chloride) 530 mls @ 200 mls/hr IV NOW ONE Stop: 06/05/24 05:55 Last Admin: 06/05/24 04:37 Dose: 200 mls/hr Documented By: PENNY Sodium Chloride (Nss) 500 mls @ 999 mls/hr IV .Q31M ONE Stop: 06/05/24 05:55 Last Admin: 06/05/24 05:37 Dose: 999 mls/hr Documented By: PENNY Discontinued Medications Dexamethasone Sodium Phosphate (DexamethasonePf 10 Mg/Ml Vial) 6 mg IV NOW ONE Stop: 06/05/24 05:00 Last Admin: 06/05/24 05:36 Dose: 6 mg Documented By: PENNY Calcium Chloride 1,000 mg/ (Dextrose) 60 mls @ 240 mls/hr IV NOW STA Stop: 06/05/24 02:51 Last Admin: 06/05/24 03:26 Dose: Not Given Documented By: AGUSTINA Cefepime HCl (Maxipime 2000mg) 2,000 mg in 20 mls @ 5 mls/min IV NOW STA; Protocol Stop: 06/05/24 03:20 Last Admin: 06/05/24 03:32 Dose: 5 mls/min Documented By: AGUSTINA Calcium Chloride 1,000 mg/ (Dextrose) 60 mls @ 240 mls/hr IV NOW STA Stop: 06/05/24 04:23 Last Infusion: 06/05/24 04:12 Dose: Infused Documented By: Admin: 06/05/24 02:40 Dose: 240 mls/hr Documented By: AGUSTINA Ioversol (Optiray 320 125ml) 120 ml IV ONCE ONE Stop: 06/05/24 02:51 Last Admin: 06/05/24 02:51 Dose: 120 ml Documented By: LAURA Norepinephrine Bitartrate (Norepinephrine/D5w 4 Mg/250 Ml) Confirm Administered Dose 4 mg IV .STK-MED ONE Stop: 06/05/24 02:23 Last Admin: 06/05/24 02:52 Dose: Not Given Documented By: AGUSTINA Propofol (Propofol Iv Emulsion 10 Mg/Ml 100 Ml Vial) Confirm Administered Dose 1,000 mg IV .STK-MED ONE Stop: 06/05/24 02:08 Last Admin: 06/05/24 03:34 Dose: Not Given Documented By: AGUSTINA Sodium Bicarbonate (Sodium Bicarb 8.4% Inj 50 Meq/50 Ml Syr) 50 meq IV NOW STA Stop: 06/05/24 02:38 Last Admin: 06/05/24 02:39 Dose: 50 meq Documented By: KMF ECG Additional Comments: Normal sinus rhythm Right bundle branch block Abnormal ECG When compared with ECG 11:32, Right bundle branch blockis nowPresent Minimal criteria forAnterior infarctare no longerPresent Coding Level of Care Code 38409 CRITICAL CARE 1ST 30-74M Additional Critical Care Time Additional 30min Critical Care Time: Yes - 47250 Diagnoses Cardiac arrest I46.9 COVID-19 U07.1 Shock R57.9 High anion gap metabolic acidosis E87.29 Diabetes mellitus, type 2 E11.9 Chronic obstructive pulmonary disease, unspecified COPD type J44.9 COPD type: unspecified COPD Additional Codes Critical Care Time - Additional 30min Critical Care Time: Yes - 27365 ([id number]) (6) COPD (chronic obstructive pulmonary disease) COPD type: unspecified COPD Qualified Code(s): J44.9 - Chronic obstructive pulmonary disease, unspecified
[2024-06-05 05:54] LABS: Enteroaggregative E.coli(EAEC) DETECTED (NotDetected)
[2024-06-05] MEDS: BUDESONIDE 0.25 MG/2 ML VIAL (PULMICORT) NEB SCH (06:01)
[2024-06-05] MEDS: ALBUTEROL 0.083% NEBU SOLN 3 ML VIAL NEB SCH (06:01)
[2024-06-05] MEDS: ALBUT/IPRATROP 3MG/0.5MG NEB 3 ML VIAL NEB STA (06:01)
[2024-06-05] MEDS ORDERED: GLUCOSE 40% GEL 15 GM TUBE PO PRN (06:21)
[2024-06-05] MEDS ORDERED: GLUCAGON FOR INJ 1 MG VIAL SQ PRN (06:21)
[2024-06-05] MEDS ORDERED: ALBUT/IPRATROP 3MG/0.5MG NEB 3 ML VIAL NEB PRN (06:21)
[2024-06-05] MEDS ORDERED: GLUCOSE 10 TAB/TUBE PO PRN (06:21)
[2024-06-05] MEDS ORDERED: CARBOHYDRATES FOR HYPOGLYCEMIA PO PRN ×2 (06:21→08:59)
[2024-06-05] MEDS ORDERED: ACETAMINOPHEN 1000 MG/100 ML IV IV PRN (06:21)
[2024-06-05] MEDS ORDERED: ONDANSETRON INJ 2 MG/ML 2 ML VIAL IV PRN (06:21)
[2024-06-05] MEDS ORDERED: DEXTROSE 50% 50 ML SYRINGE IV PRN ×2 (06:21→08:59)
[2024-06-05] MEDS ORDERED: ACETAMINOPHEN 1,000 MG/100 ML VIAL IV PRN (07:00)
[2024-06-05] MEDS: REMDESIVIR 200 MG in SODIUM CHLORIDE 0.9% 210 ML IV STA (07:09)
[2024-06-05] MEDS: PIPERACILLIN/TAZOBACTAM 4.5 GM/100 ML BAG IV ONE ×2 (07:48→07:56)
[2024-06-05] MEDS: PIPERACILLIN/TAZOBACTAM 4.5 GM/100 ML BAG IV SCH ×2 (07:57→12:15)
[2024-06-05 08:26] LABS: Fibrinogen 163 mg/dl (184-400); INR 1.6 (0.9-1.1); Partial Thromboplastin Ratio 1.8; Partial Thromboplastin Time 49 Seconds (21-31); Prothrombin Time 17.1 Seconds (9.0-12.0)
[2024-06-05] MEDS: AZITHROMYCIN 500 MG in SODIUM CHLORIDE 0.9% 250 ML IV SCH (08:42)
[2024-06-05] MEDS: ICU Protocol for HYPERglycemia SCH (09:02)
[2024-06-05 09:14] LABS: D Dimer > 35200 ug/L FEU (0-500)
[2024-06-05] MEDS: PANTOprazole 40 MG/10 ML SYR IV SCH (09:18)
[2024-06-05] MEDS: dexAMETHasone 6 MG in SYRINGE 0 ML IV SCH (09:19)
[2024-06-05] MEDS ORDERED: VANCOMYCIN HCL 1,000 MG in SODIUM CHLORIDE 0.9% 250 ML IV SCH (10:00)
--- NOTE | 2024-06-05 11:29 | Pharmacy Report ---
Pharmacy PK ABX Note - Date of Service June 05, 2024 - Assessment and Plan Assessment 79 year old F receiving VANCOMYCIN/AZITHROMYCIN/ZOSYN for empiric treatment (poss. pneumonia) following cardiac arrest. COVID +, stool EAEC positive Plan Vancomycin * Loading dose: 1500 mg IV x 1 * Maintenance dose: 1250 mg IV every 24 hours * Regimen is predicted to achieve target AUC/YELENA of 400-600 mg/L.hr * Random level to be ordered if continued >48 hours. Pharmacy will continue to follow and will adjust dose/frequency as necessary. Thank you. Pharmacy has transitioned to AUC monitoring for vancomycin. AUC/YELENA is the preferred PK/PD target and is associated with decreased risk of nephrotoxicity compared to traditional trough targets.
--- NOTE | 2024-06-05 12:09 | Electrocardiogram Report ---
Test Reason : Blood Pressure : */* mmHG Vent. Rate : 89 BPM Atrial Rate : 89 BPM P-R Int : 158 ms QRS Dur : 172 ms QT Int : 448 ms P-R-T Axes : 59 95 44 degrees QTcB Int : 545 ms Normal sinus rhythm Right bundle branch block Abnormal ECG When compared with ECG of 15-May-2022 11:32, Right bundle branch block is now Present Minimal criteria for Anterior infarct are no longer Present Confirmed by Mario Waters ([id number]) on 06/05/2024 12:09:23 PM Referred By: REFERRED SELF Confirmed By: Mario Waters
[2024-06-05] MEDS: INSULIN ASPART PER UNIT CHARGE SC SCH (12:27)
[2024-06-05 13:16] VITALS: TEMP 97.7
[2024-06-05] MEDS: MoRPHine SULFATE 2 MG/ML CARP IV PRN (13:32)
--- NOTE | 2024-06-05 15:59 | Death Pronouncement Note ---
Date of Service June 05, 2024 Pronouncement Note Admission Date June 05, 2024 called to pronounceno response to stimuli. No heart tones or pulses, no breath sounds or spontaneous respirations. Pupils fixed and nonreactive. Time of 2:14 PM, 06/05/2024 Date and Time of Date of : 06/05/24 Time of : 14:14 Additional Data Attending physician: Alvaro Ledesma DO
[2024-06-05] MEDS ORDERED: CEFEPIME 2000MG 2,000 MG/20 ML SYR IV SCH (16:00)
[2024-06-05] MEDS ORDERED: VANCOMYCIN HCL 1,250 MG in SODIUM CHLORIDE 0.9% 250 ML IV SCH (16:00)
--- NOTE | 2024-06-05 16:01 | Billing Data ---
Date of Service June 05, 2024 Coding Level of Care Code 90501 IN/OBS DISCH 30 MIN/LESS
--- NOTE | 2024-06-05 16:01 | Discharge Summary ---
Discharge Summary Date of Service June 05, 2024 Principal Dx & Hospital Course #1 = Principal Diagnosis (1) Cardiac arrest: patient admitted after cardiac arrest where ROSC was obtainedfound to have pneumonia and fairly profound hypoxiaarrest most likely from hypoxia from pneumonia. Despite ROSC, patient was on ventilator and still in critical conditionsee ICU notes, after discussion with family and once family was present, terminal extubation was performed and patient passed peacefully. See H&P and critical care notes for more detail. Notes For Next Care Provider Medication Changes From Visit patient passed Admission HPI Per Admitting Provider The patient is a 79-year-old female with past medical history including cervical spine osteomyelitis, cervical spine discitis, multifocal pneumonia, diabetes mellitus type 2, COPD, hypertension, SNHL bilaterally, restrictive lung disease, PAD, hypercholesterolemia, endometrial mass, CAD, history of NE, dysphagia and GERD. She presents to the emergency department as noted above and state of septic shock and postcardiac arrest with ROSC. Upon stabilization, [facility], who will admit the patient to the ICU for ongoing treatment Updated Medication List Medication Instructions Recorded Confirmed Type aspirin 81 mg tablet,delayed 81 mg PO HS 03/07/18 04/23/24 History release vitamins A,C,J-jufk-dvpidc 2,148 2 tab PO BID 03/07/18 04/23/24 History mcg-113 mg-45 mg-17.4 mg tablet (PreserVision AREDS) acetaminophen 500 mg tablet 1,000 mg PO UD PRN Fever Or Pain 01/17/19 04/23/24 History Flutter Valve #1 ea 04/04/22 04/23/24 Rx ibuprofen 200 mg tablet 200 mg PO Q6H PRN 06/19/23 04/23/24 History rosuvastatin 20 mg tablet (Crestor) 20 mg PO DAILY #90 tabs 07/10/23 04/23/24 Rx Flutter Valve #1 ea 07/17/23 04/23/24 Rx sodium chloride 7 % for 1 inh inhalation BID #240 mL 07/17/23 04/23/24 Rx nebulization CPAP Machine #1 ea 11/30/23 04/23/24 Rx albuterol sulfate 90 mcg/actuation 2 puff inhalation Q6H PRN 11/30/23 04/23/24 Rx aerosol inhaler (Ventolin HFA) shortness of breath or wheezing #18 grams fluticasone fur. 100 mcg-umeclid 1 inh inhalation DAILY #60 ea 11/30/23 04/23/24 Rx 62.5 mcg-vilant 25 mcg inhalat.powder (Trelegy Ellipta) ipratropium 0.5 mg-albuterol 3 mg 3 ml inhalation Q8H PRN shortness 11/30/23 04/23/24 Rx (2.5 mg base)/3 mL nebulization of breath or wheezing #180 mL soln nitroglycerin 0.4 mg sublingual 0.4 mg sublingual UD PRN chest 01/19/24 04/23/24 Rx tablet pain #30 tabs hydrocortisone 2.5 % topical cream 1 applic IA BID PRN hemorrhoids 2 02/13/24 04/23/24 Rx with perineal applicator weeks #30 grams citalopram 20 mg tablet (Celexa) 20 mg PO DAILY #90 tabs 03/06/24 04/23/24 Rx furosemide 40 mg tablet 40 mg PO QAM #7 tabs 04/26/24 Rx cefuroxime axetil 500 mg tablet 500 mg PO Q12H 10 days #20 tabs 05/02/24 Rx losartan 25 mg tablet 25 mg PO QAM #90 tabs 05/29/24 Rx metoprolol tartrate 100 mg tablet 100 mg PO BID #180 tabs 05/29/24 Rx Hospital Stay Data Consultations 06/05/24 04:59 ED Decision to Admit Stat 06/05/24 06:21 Consult Customer Quality Specialist Routine Diagnostic Imagining Performed 06/05/24 02:34 CT abd pelvis IV con only Stat CT angio chest PE protocol Stat CT cervical spine wo con Stat CT head/brain wo con Stat Total Time Total Time Spent Total Time Spent (In Minutes): <30
[2024-06-05 16:05] VITALS: BP 0/0; PULSE 0; RESP 0; O2SAT 0
[2024-06-06] MEDS ORDERED: REMDESIVIR 100 MG in SODIUM CHLORIDE 0.9% 230 ML IV SCH (12:00)
== END 2024-06-05 16:05 | disposition expired | DRG 871 ==
LOC: ED 02:29 → SUATTDRO 05:08 → 1E 05:08